=== PATIENT | female | born 1985 | race Caucasian/White ===

== ENCOUNTER 2019-10-17 06:34 | Emergency (ER) | payer MEDICARE, MEDICAID, SELFPAY ==
[2019-10-17 06:38] VITALS: BP 125/85; PULSE 86; RESP 22; TEMP 36.4; O2SAT 98; BMI 38.0
--- NOTE | 2019-10-17 06:53 | W.ED.ABDPA2 ---
HPI - Abdominal Pain General: Chief Complaint: Abdominal Pain Stated Complaint: RIGHT SIDE PAIN Time Seen by Provider: 10/17/19 06:40 History of Present Illness: HPI narrative: 33-year-old female presents with complaint of right-sided flank pain radiating down into the right groin. She denies any vaginal bleeding. She has a history of nephrolithiasis states this feels the same. She did have a bowel movement earlier this morning she also vomited x1 there is no hematochezia melena hematemesis or coffee-ground emesis she denies any fever she has noted dysuria and urgency associated with this as well. No hematuria. MD elicited complaint: flank pain Pertinent past history: kidney stones Location: R flank Severity: severe Quality: sharp Radiation: other (R groin) Migration to: no migration Exacerbating factors: nothing Relieving factors: nothing Associated Symptoms: Reports dysuria; Denies bloating, chills, coffee ground emesis, constipation, diarrhea, fever(s), hematochezia, hematemesis, melena, nausea and vomiting Review of Systems Const: Denies: fever, chills, body aches, change in appetite, fatigue or malaise ENMT: Denies: throat pain, ear pain, nasal discharge or nasal congestion Card: Denies: chest pain, edema, shortness of breath on exertion or shortness of breath when lying down Resp: Denies: shortness of breath, productive cough or non-productive cough GI: Denies: abdominal pain, nausea, vomiting, vomiting blood, coffee grounds in vomit, diarrhea, constipation, bloating, blood in stool or black tarry stool : Reports: flank pain, difficulty urinating and painful urination; Denies: urinary frequency or urinary urgency Skin/Breast: Denies: rash or itching PFS ED PFSH: Social History Smoking and tobacco status: current every day smoker cigarettes Packs smoked per day: 1 Physical Exam Const: COMMON NORMALS: no apparent distress GENERAL APPEARANCE: cooperative and comfortable ORIENTATION/CONSCIOUSNESS: Yes awake, Yes oriented to person, Yes oriented to place and Yes oriented to time HENMT: COMMON NORMALS: normocephalic, head/scalp atraumatic, hearing grossly normal bilaterally, external ears normal, EAC's normal, TM's normal bilaterally, nasal mucous membranes and turbinates normal, moist oral mucous membranes and oropharynx normal HEAD & SCALP: normocephalic and atraumatic NOSE: nasal mucous membranes and turbinates normal EXTERNAL EAR: Yes external ears normal EXTERNAL AUDITORY CANAL: EAC's normal TYMPANIC MEMBRANE: TM's normal bilaterally Eye: COMMON NORMALS: PERRL, EOMs intact bilaterally, conjunctivae normal and no scleral icterus CONJUNCTIVA: Yes conjunctivae normal PUPIL: Yes PERRL Neck/C-Spine: COMMON NORMALS: full ROM, no lymphadenopathy, supple and no JVD Lymph: LYMPHATIC: no lymphadenopathy noted and no lymphedema noted Resp: COMMON NORMALS: normal respiratory effort, no retractions, no use of accessory muscles and clear to auscultation bilaterally AUSCULTATION: clear to auscultation bilaterally Cardio: COMMON NORMALS: no JVD, regular rate, regular rhythm and no murmurs RATE: regular rate RHYTHM: regular rhythm GI: COMMON NORMALS: soft to palpation and no hepatosplenomegaly AUSCULTATION: Yes normoactive bowel sounds PALPATION: Yes soft, No tender, No guarding and Yes no hepatosplenomegaly Extremity: COMMON NORMALS: normal to inspection, normal capillary refill, no clubbing, cyanosis or edema, no calf tenderness and no pedal edema Neuro: SENSORIUM/ORIENTATION: Yes oriented to person, Yes oriented to place and Yes oriented to time Skin: COMMON NORMALS: no rashes or lesions noted GENERAL SKIN EXAM: no rashes or lesions noted Course Vital Signs: Vital signs: Vital Signs Temperature 97.6 F 10/17/19 06:38 Pulse Rate 86 10/17/19 06:38 Respiratory Rate 22 H 10/17/19 06:38 Blood Pressure 125/85 10/17/19 06:38 Pulse Oximetry 98 10/17/19 06:38 MDM - Abdominal Pain MDM Narrative: Medical decision making narrative: While patient was waiting for CT she passed the stone agreeable to collect it. It was drained and submitted for pathology. She is completely pain-free now and she does not show signs of infection we will go ahead and discharge home KUB did not show any signs of further nephrolithiasis. There is a few pelvic phleboliths. We will analyze a stone set up follow-up with Dr. Valentin Lab Data: Labs: Lab Results 04/22/20 Range/Units 06:50 Urine Color Yellow (Yellow) Urine Appearance Clear (CLEAR) Urine pH 5.0 (5-7) Ur Specific Gravit y 1.025 (1.005-1.030) Urine Protein 1+ H (Negative) Urine Glucose (UA) Norm (Normal) Urine Ketones 1+ H (Negative) Urine Blood Neg (Negative) Urine Nitrate Negative (Negative) Urine Bilirubin 1+ H (NEGATIVE) Urine Urobilinogen 4 H (Negative) mg/dL Ur Leukocyte May ase Trace H (Negative) Urine RBC None (0-2) /hpf Urine WBC 0-4 H (0-5) /hpf Ur Squamous Epith Cells 15-25 H (0-5) Urine Bacteria 1+ H (NONE) Discharge Plan Discharge Patient Disposition: Home, Self-Care Clinical Impression: Calculus of kidney Condition: Stable Prescriptions: No Action ibuprofen 200 mg capsule 800 mg PO TID PRNRF: 0 nicotine 21 mg/24 hr patch 24 hour 1 patch TRANSDERMA DAILY RF: 0 bupropion HCl [Wellbutrin SR] 150 mg tablet sustained-release 12 hr 150 mg PO QAM Qty: 30 RF: 4 buspirone 15 mg tablet 15 mg PO TID Qty: 90 RF: 4 melatonin 5 mg capsule 5 mg PO .QHS PRN (Reason: sleep) Qty: 30 RF: 4 venlafaxine [Effexor XR] 150 mg capsule,extended release 24hr 150 mg PO QAM Qty: 30 RF: 4 Discharge Orders: Discharge Order (Routine); Ordered 10/17/19 Ordered By: Kevin Grant Referrals: Timothy Valentin MD [Physician] - (Past renal stone in the emergency room stone was sent for analysis) Discharge Diet: Usual diet Discharge Activity: Resume usual activity Activity Restrictions/Additional Instructions: Return if you have recurrent problems Discharge Date/Time: 10/17/19 08:24 Coding Level of Care Code ED [employer] Station Manager for Michelle German
--- NOTE | 2019-10-17 07:15 | PC.NURSE ---
Pt got up to bathroom to void and states she feels she passed the stone and her pain is completely gone. Pt voided to specimen cup and urine strained for stone. Dr Grant notified.
[2019-10-17 07:16] LABS: Add Urine Microscopic? YES; Bilirubin Urine 1+ (NEGATIVE); Blood Urine Neg (Negative); Glucose Urine UA Norm (Normal); Ketones Urine 1+ (Negative); Leukocyte Esterase Urine Trace (Negative); Nitrate Urine Negative (Negative); Protein Urine 1+ (Negative); Specific Gravity, Urine 1.025 (1.005-1.030); Urine Appearance Clear (CLEAR); Urine Color Yellow (Yellow); Urobilinogen Urine 4 mg/dL (Negative)
[2019-10-17 07:24] LABS: Add Urine Culture? No; Bacteria Urine 1+; Squamous Epithelial Cell Urine 15-25 (0-5); WBC Urine 0-4 /hpf (0-5)
--- NOTE | 2019-10-17 07:43 | XR_ITS ---
WS: [id number] ABDOMEN KUB CLINICAL INFORMATION: Renal/ureteral calculi. COMPARISON: December 18, 2016 FINDINGS: Mild lumbar curve convex right. Pelvic phleboliths. Cholecystectomy clips. No visualized renal parenc hymal or ureteral calculi. XR/XR KUB [id number] Impression: No visualized renal parenchymal or ureteral calculi.
--- NOTE | 2019-10-18 15:23 | DCPLANNER ---
commercial property manager had message to schedule a follow up appointment for patient with Dr. Valentin. commercial property manager called the office of Dr. Valentin. commercial property manager called the office of Dr. Valentin, spoke with Luz Marina, gave clinic patients information. commercial property manager was told that patients information would be printed and given to Archana for review. Clinic will call patient with appointment information. commercial property manager will call for appointment information.
--- NOTE | 2019-10-19 10:59 | DCPLANNER ---
Patient has a follow up appointment scheduled for , October 25, 2019 at 1:[address] Valentin. Clinic will call patient with appointment information.
--- NOTE | 2019-12-13 14:43 | DCPLANNER ---
Patient did attend appointment scheduled for 10.25.[address] Valentin.
== END 2019-10-17 08:24 | disposition home or self-care (01) ==
PROVIDERS: Emergency Provider Family Medicine; PCP Family Medicine
DX: N20.0 Calculus of kidney (principal); F17.210 Nicotine dependence, cigarettes, uncomplicated; Z87.442 Personal history of urinary calculi
CPT/HCPCS: 12345; 74018; 81001; 82365; 99282

== ENCOUNTER 2019-10-25 13:55 | Outpatient (CLI) | payer MEDICARE, MEDICAID, SELFPAY ==
--- NOTE | 2019-10-25 14:00 | XR_ITS ---
WS: [id number] ABDOMEN 1 VIEW(S) HISTORY: kidney calculus COMPARISON: 10/17/2019 Mild RIGHT convex curvature lumbar spine. Prior cholecystectomy. No suspicious calcifications or masses. No bone abnormality. XR/XR KUB [id number] IMPRESSION: No renal or ureteral calculi identified.
== END 2019-10-25 13:56 | disposition home or self-care (01) ==
LOC: RAD 14:01
PROVIDERS: PCP Family Medicine; Visit Provider Nurse Practitioner Family
DX: N20.0 Calculus of kidney (principal)
CPT/HCPCS: 74018; 81001

== ENCOUNTER 2019-11-25 17:04 | Emergency (ER) | payer MEDICARE, MEDICAID, SELFPAY ==
[2019-11-25 17:07] VITALS: BP 143/91; PULSE 92; RESP 18; O2SAT 95; BMI 38.9
--- NOTE | 2019-11-25 17:16 | ED_ITS ---
Documented by User: Yayo Gunderson DO 11/25/19 17:18 HPI - Chest Pain General: Chief Complaint: Chest Pain Stated Complaint: CHEST PAIN/SOB Time Seen by Provider: 11/25/19 17:11 History of Present Illness: HPI narrative: Patient had chest pain that started in the center of her chest and radiated up to her left shoulder yesterday. There were no associated symptoms. Pain lasted for approximately 30 minutes. Pain recurred this morning while the patient was laying in bed. MD complaint: chest pain Associated symptoms: Reports no associated symptoms Treatment prior to arrival: none Review of Systems General: Reports: 10 or more systems reviewed and unremarkable except in HPI and below Card: Reports: chest pain [facility] ED PFSH: Medical History Urolithiasis Surgical History Hx of cholecystectomy Hx of hysterectomy Family History Other CAD (coronary artery disease) Diabetes Social History Smoking and tobacco status: current every day smoker cigarettes Packs smoked per day: 1 Alcohol intake: unknown Adopted: No Caregiver/support person: No Lives independently: Yes Marital status: Single Current occupational status: disabled History of recent travel: No Current gender identity: Female Physical Exam Const: COMMON NORMALS: no acute distress, average body habitus, patient oriented x3, no limitations, alert and well nourished HENMT: COMMON NORMALS: normocephalic, atraumatic, hearing grossly normal bilaterally, external ears normal, EAC's normal, TM's normal bilaterally, Normal external nose present, Normal nasal mucous membranes and turbinates present, moist oral mucous membranes, oropharynx normal, dentition normal and gingiva normal HEAD & SCALP: normocephalic and atraumatic NOSE: Normal external nose present and Normal nasal mucous membranes and turbinates present EXTERNAL EAR: Yes external ears normal EXTERNAL AUDITORY CANAL: EAC's normal TYMPANIC MEMBRANE: TM's normal bilaterally Eye: COMMON NORMALS: Equal, round and reactive pupils present, EOMs intact bilaterally, conjunctivae normal, no scleral icterus, no papilledema, normal visual muro by confrontation and fundi normal bilaterally CONJUNCTIVA: Yes conjunctivae normal PUPIL: Yes Equal, round and reactive pupils present DIRECT OPHTHALMOSCOPY: Yes no papilledema and Yes fundi normal bilaterally Neck/C-Spine: COMMON NORMALS: full ROM, no lymphadenopathy, supple, no meningeal signs, no JVD, Thyroid normal and No carotid bruits THYROID: Thyroid normal Chest: COMMONS NORMALS: normal inspection of the chest Resp: COMMON NORMALS: normal respiratory effort, No retractions, No use of accessory muscles, clear to auscultation bilaterally and percussion normal AUSCULTATION: clear to auscultation bilaterally PERCUSSION: percussion normal Cardio: COMMON NORMALS: no JVD, regular rate, regular rhythm, S1 normal heart sound present, S2 normal heart sound present, No gallops present (Cardio), No clicks present (Cardio), No murmurs present (Cardio), No rub (Cardio) and Peripheral pulses 2+ throughout RATE: regular rate RHYTHM: regular rhythm HEART SOUNDS: S1 normal heart sound present and S2 normal heart sound present PERIPHERAL PULSES: Peripheral pulses 2+ throughout GI: COMMON NORMALS: Normal to inspection, nondistended, normoactive bowel sounds present, Soft to palpation, non-tender, No hepatosplenomegaly present, no masses and no bruits PALPATION: Yes Soft to palpation and Yes No hepatosplenomegaly present : COMMON NORMALS: Yes normal external appearance Back/Pelvis: COMMON NORMALS: thoracic and lumbar spine normal to inspection, no thoracic nor lumbar tenderness, thoraco-lumbar ROM normal and straight leg raise negative bilaterally Extremity: COMMON NORMALS: normal to inspection, full ROM, capillary refill normal, no joint enlargement, no clubbing, cyanosis or edema, no calf tenderness and no pedal edema Neuro: COMMON NORMALS: patient oriented x3 SENSORIUM/ORIENTATION: Yes alert and Yes somnolent MENINGEAL SIGNS: Yes no meningeal signs Skin: COMMON NORMALS: no rashes or lesions noted, no wounds, no jaundice and no mottling GENERAL SKIN EXAM: no rashes or lesions noted Course Vital Signs: Vital signs: Vital Signs Pulse Rate 92 11/25/19 17:07 Respiratory Rate 18 11/25/19 17:07 Blood Pressure 143/91 11/25/19 17:07 Pulse Oximetry 95 11/25/19 17:07 MDM - Chest Pain Lab Data: Labs: Lab Results 11/25/19 11/25/19 11/25/19 Range/Units 17:30 17:30 17:30 WBC 11.5 H (4.0-10.0) 10^3/ uL RBC 5.13 (4.1-5.3) 10^6/u L Hgb 15.1 (11.5-15.3) g/dL Hct 46.2 (37.0-47.0) % MCV 90.1 (81-99) fL MCH 29.4 (28.0-34.0) pg MCHC 32.7 (30.0-36.0) g/dL RDW 13.6 (12.1-15.1) % Plt Count 264 (130-400) 10^3/c mm MPV 11.0 H (7.4-10.4) fL Neut % (Auto) 61.7 % Lymph % (Auto) 29.0 % Bertie % (Auto) 6.3 % Eos % (Auto) 2.1 % Baso % (Auto) 0.6 % Neut # (Auto) 7.1 (1.8-7.7) 10^3/u L Lymph # (Auto) 3.3 (0.8-4.8) 10^3/u L Bertie # (Auto) 0.7 (0.2-0.9) 10^3/u L Eos # (Auto) 0.2 (0.0-0.8) 10^3/u L Baso # (Auto) 0.1 (0.0-0.1) 10^3/u L Nucleated RBC % (a uto) 0 % Nucleated RBCs # 0.0 /100WBC Sodium 140 (136-145) mmol/L Potassium 3.9 (3.5-5.1) mmol/L Chloride 102 (98-107) mmol/L Carbon Dioxide 25 (22-29) mmol/L Anion Gap 16.9 (5-19) BUN 12 (6-20) mg/dL Creatinine 0.7 (0.5-0.9) mg/dL GFR Calculation 95.8 (90-130) mL/min Glucose 105 (65-115) mg/dL Calculated Osmolal ity 286 (285-295) mOsm/k g Calcium 9.8 (8.5-10.5) mg/dL Total Bilirubin 0.3 (0.15-1.2) mg/dL AST 16 (0-32) U/L ALT 19 (0-33) U/L Alkaline Phosphata se 110 H (35-105) IU/L Troponin T Baselin e 6 (0-10) ng/mL NT-Pro-B Natriuret Pep 6 (0-125) pg/mL Total Protein 7.1 (6.6-8.7) g/dL Albumin 3.9 (3.5-5.2) g/dL Globulin 3.2 (1.3-4.6) g/dL Lipase 20 (13-60) U/L Discharge Plan Discharge Patient Disposition: Home, Self-Care Clinical Impression: Chest pain Qualifiers: Chest pain type: unspecified Qualified Code(s): R07.9 - Chest pain, unspecified Condition: Stable Prescriptions: No Action ibuprofen 200 mg capsule 800 mg PO TID PRN (Reason: Pain) RF: 0 Sleep Aid (diphenhydramine) 25 mg Tablet 25 mg PO PRN PRN (Reason: Sleep) RF: 0 Discharge Orders: Discharge Order (Routine); Ordered 11/25/19 Ordered By: Jose Maria Sears Referrals: [facility] [Other] Adan Hines MD [Primary Care Provider] - 4-7 days Discharge Diet: Advance as tolerated Discharge Activity: Increase activity as tolerated Patient Instructions: Chest Pain (ED) Activity Restrictions/Additional Instructions: Return to the emergency department for repeated episodes of chest pain, shortness of breath, fever or cough, or other concerning symptoms. Coding Level of Care Code ED Information Services Consultant for Chg Fwd Exam Comprehensive Documented by User: Jose Maria Sears, 11/25/19 18:41 HPI - Chest Pain General: Chief Complaint: Chest Pain Stated Complaint: CHEST PAIN/SOB Time Seen by Provider: 11/25/19 17:11 PFS ED PFSH: Medical History Urolithiasis Surgical History Hx of cholecystectomy Hx of hysterectomy Family History Other CAD (coronary artery disease) Diabetes Social History Smoking and tobacco status: current every day smoker cigarettes Packs smoked per day: 1 Alcohol intake: unknown Adopted: No Caregiver/support person: No Lives independently: Yes Marital status: Single Current occupational status: disabled History of recent travel: No Current gender identity: Female Course Vital Signs: Vital signs: Vital Signs Pulse Rate 92 11/25/19 17:07 Respiratory Rate 18 11/25/19 17:07 Blood Pressure 143/91 11/25/19 17:07 Pulse Oximetry 95 11/25/19 17:07 MDM - Chest Pain MDM Narrative: Medical decision making narrative: 33-year-old female checked out to me by Dr. Morales at shift change. She presented with 2 episodes of chest pain, one yesterday and one this morning. She is pain-free currently. Her chest x-ray is normal. Her EKG is normal sinus rhythm without any ST change. Her first troponin is completely negative. Her laboratory is otherwise normal. She will be allowed discharge. Lab Data: Labs: Lab Results 11/25/19 11/25/19 11/25/19 Range/Units 17:30 17:30 17:30 WBC 11.5 H (4.0-10.0) 10^3/ uL RBC 5.13 (4.1-5.3) 10^6/u L Hgb 15.1 (11.5-15.3) g/dL Hct 46.2 (37.0-47.0) % MCV 90.1 (81-99) fL MCH 29.4 (28.0-34.0) pg MCHC 32.7 (30.0-36.0) g/dL RDW 13.6 (12.1-15.1) % Plt Count 264 (130-400) 10^3/c mm MPV 11.0 H (7.4-10.4) fL Neut % (Auto) 61.7 % Lymph % (Auto) 29.0 % Bertie % (Auto) 6.3 % Eos % (Auto) 2.1 % Baso % (Auto) 0.6 % Neut # (Auto) 7.1 (1.8-7.7) 10^3/u L Lymph # (Auto) 3.3 (0.8-4.8) 10^3/u L Bertie # (Auto) 0.7 (0.2-0.9) 10^3/u L Eos # (Auto) 0.2 (0.0-0.8) 10^3/u L Baso # (Auto) 0.1 (0.0-0.1) 10^3/u L Nucleated RBC % (a uto) 0 % Nucleated RBCs # 0.0 /100WBC Sodium 140 (136-145) mmol/L Potassium 3.9 (3.5-5.1) mmol/L Chloride 102 (98-107) mmol/L Carbon Dioxide 25 (22-29) mmol/L Anion Gap 16.9 (5-19) BUN 12 (6-20) mg/dL Creatinine 0.7 (0.5-0.9) mg/dL GFR Calculation 95.8 (90-130) mL/min Glucose 105 (65-115) mg/dL Calculated Osmolal ity 286 (285-295) mOsm/k g Calcium 9.8 (8.5-10.5) mg/dL Total Bilirubin 0.3 (0.15-1.2) mg/dL AST 16 (0-32) U/L ALT 19 (0-33) U/L Alkaline Phosphata se 110 H (35-105) IU/L Troponin T Baselin e 6 (0-10) ng/mL NT-Pro-B Natriuret Pep 6 (0-125) pg/mL Total Protein 7.1 (6.6-8.7) g/dL Albumin 3.9 (3.5-5.2) g/dL Globulin 3.2 (1.3-4.6) g/dL Lipase 20 (13-60) U/L Discharge Plan Discharge Patient Disposition: Home, Self-Care Clinical Impression: Chest pain Qualifiers: Chest pain type: unspecified Qualified Code(s): R07.9 - Chest pain, unspecified Condition: Stable Prescriptions: No Action ibuprofen 200 mg capsule 800 mg PO TID PRN (Reason: Pain) RF: 0 Sleep Aid (diphenhydramine) 25 mg Tablet 25 mg PO PRN PRN (Reason: Sleep) RF: 0 Discharge Orders: Discharge Order (Routine); Ordered 11/25/19 Ordered By: Jose Maria Sears Referrals: [facility] [Other] Adan Hines MD [Primary Care Provider] - 4-7 days Discharge Diet: Advance as tolerated Discharge Activity: Increase activity as tolerated Patient Instructions: Chest Pain (ED) Activity Restrictions/Additional Instructions: Return to the emergency department for repeated episodes of chest pain, shortness of breath, fever or cough, or other concerning symptoms. Coding Level of Care Code ED Information Services Consultant for Michelle Fwd Exam Comprehensive
--- NOTE | 2019-11-25 17:18 | XR_ITS ---
WS: [id number] XR chest 1V portable [id number] REASON FOR EXAM: cp FINDINGS: Comparisons were made to November 27, 2018. The heart mediastinum are similar. The lung muro are well aerated. No pneumonia, pleural effusion, pulmonary edema, or pneumothorax. No osseous abnormalities. The hilum and apices normal. XR/XR chest 1V portable [id number] IMPRESSION: Negative chest for acute pathology.
[2019-11-25 17:46] LABS: Basophils # 0.1 10^3/uL (0.0-0.1); Basophils % 0.6 %; Eosinophils # 0.2 10^3/uL (0.0-0.8); Eosinophils % 2.1 %; Hematocrit 46.2 % (37.0-47.0); Hemoglobin 15.1 g/dL (11.5-15.3); Lymphocytes # 3.3 10^3/uL (0.8-4.8); Mean Corpuscular HGB Conc 32.7 g/dL (30.0-36.0); Mean Corpuscular Hemoglobin 29.4 pg (28.0-34.0); Mean Corpuscular Volume 90.1 fL (81-99); Monocytes # 0.7 10^3/uL (0.2-0.9); Monocytes % 6.3 %; Neutrophils # 7.1 10^3/uL (1.8-7.7); Neutrophils % 61.7 %; Nucleated Red Blood Cells % 0 %; Platelet Count 264 10^3/cmm (130-400); Red Blood Count 5.13 10^6/uL (4.1-5.3); Red Cell Distribution Width 13.6 % (12.1-15.1); White Blood Count 11.5 10^3/uL (4.0-10.0)
[2019-11-25 18:06] LABS: Troponin(5th) Baseline 6 ng/mL (0-10)
[2019-11-25 18:16] LABS: Alanine Aminotransferase 19 U/L (0-33); Albumin Level 3.9 g/dL (3.5-5.2); Alkaline Phosphatase 110 IU/L (35-105); Anion Gap 16.9 (5-19); Aspartate Amino Transferase 16 U/L (0-32); Blood Urea Nitrogen 12 mg/dL (6-20); Calcium 9.8 mg/dL (8.5-10.5); Carbon Dioxide 25 mmol/L (22-29); Chloride 102 mmol/L (98-107); Globulin 3.2 g/dL (1.3-4.6); Glomerular Filtration Rate 95.8 mL/min (90-130); Glucose 105 mg/dL (65-115); Lipase 20 U/L (13-60); NT Pro B Type Natriuretic Pept 6 pg/mL (0-125); Osmolality Calculated 286 mOsm/kg (285-295); Potassium 3.9 mmol/L (3.5-5.1); Sodium 140 mmol/L (136-145); Total Bilirubin 0.3 mg/dL (0.15-1.2); Total Protein 7.1 g/dL (6.6-8.7)
--- NOTE | 2019-11-25 19:18 | ECG_ITS ---
Measurements Intervals [place] Rate: 85 P: 54 OR: 156 QRS: 82 QRSD: 102 T: 42 QT: 374 QTc: 446 SINUS RHYTHM Compared to ECG 11/27/2018 08:56:17 Myocardial infarct finding no longer present Electronically Signed On 11-26-2019 17:07:07 CDT by Theo Sierra M.D. [email or web address]
[2019-11-25 19:33] VITALS: BP 114/94; PULSE 93; RESP 15; O2SAT 97
--- NOTE | 2019-11-25 23:18 | ECG_ITS ---
Measurements Intervals [place] Rate: 97 P: 33 VA: 148 QRS: 82 QRSD: 102 T: 22 QT: 357 QTc: 455 SINUS RHYTHM Compared to ECG 11/27/2018 08:56:17 Myocardial infarct finding no longer present Electronically Signed On 11-26-2019 17:06:50 CDT by Theo Sierra M.D. [email or web address]
== END 2019-11-25 19:34 | disposition home or self-care (01) ==
PROVIDERS: Family Medicine; Emergency Provider Emergency Medicine; PCP Family Medicine
DX: R07.9 Chest pain, unspecified (principal); F17.210 Nicotine dependence, cigarettes, uncomplicated
CPT/HCPCS: 12345; 36415; 71045; 80053; 83690; 83880; 84484; 85025; 93005; 99282; 99284

== ENCOUNTER → 2019-11-26 07:39 | Outpatient (BNVA) | payer MEDICARE, MEDICAID, SELFPAY | PROVIDERS: PCP Family Medicine; Visit Provider Nurse Practitioner Psychiatric/Mental Health | DX: F41.0 Panic disorder [episodic paroxysmal anxiety] (principal); F33.1 Major depressive disorder, recurrent, moderate; F43.12 Post-traumatic stress disorder, chronic; F17.210 Nicotine dependence, cigarettes, uncomplicated | CPT/HCPCS: 99214 ==

== ENCOUNTER → 2020-01-09 07:44 | Outpatient (BNVA) | payer MEDICARE, MEDICAID, SELFPAY | PROVIDERS: PCP Family Medicine; Visit Provider Nurse Practitioner Psychiatric/Mental Health | DX: F41.0 Panic disorder [episodic paroxysmal anxiety] (principal); F33.1 Major depressive disorder, recurrent, moderate; F43.12 Post-traumatic stress disorder, chronic; F17.210 Nicotine dependence, cigarettes, uncomplicated | CPT/HCPCS: 99214 ==

== ENCOUNTER → 2020-02-20 08:19 | Outpatient (BNVA) | payer MEDICARE, MEDICAID, SELFPAY | PROVIDERS: PCP Family Medicine; Visit Provider Nurse Practitioner Psychiatric/Mental Health | DX: F41.0 Panic disorder [episodic paroxysmal anxiety] (principal); F33.1 Major depressive disorder, recurrent, moderate; F43.12 Post-traumatic stress disorder, chronic; F17.210 Nicotine dependence, cigarettes, uncomplicated | CPT/HCPCS: 99214 ==

== ENCOUNTER 2020-03-18 07:08 | Emergency (ER) | payer MEDICAID, SELFPAY ==
[2020-03-18 07:13] VITALS: BP 123/85; PULSE 97; RESP 14; TEMP 36.9; O2SAT 96; BMI 41.4
--- NOTE | 2020-03-18 07:22 | W.ED.GENADLT ---
HPI - General Adult General: Chief complaint: General Medical Stated complaint: COUGH, THROAT PAIN Time Seen by Provider: 03/18/20 07:17 History of Present Illness: HPI narrative: Patient comes in complain about sore throat and cough right ear is been itching since yesterday is a smoker. Denies fever chills denies production with cough. Denies any nausea vomiting diarrhea loss of taste or smell or muscle aches. MD complaint: Sore throat and cough Onset (ago): day(s) Severity: mild Associated symptoms: Deny chest pain, dyspnea, headache(s), nausea, rash or vomiting Review of Systems Const: Denies: fever(s), chills or body aches Eyes: Denies: change in vision or blurry vision ENMT: Reports: throat pain; Denies: nasal congestion Card: Denies: chest pain or dyspnea on exertion Resp: Reports: non-productive cough; Denies: dyspnea or productive cough GI: Denies: abdominal pain, nausea or vomiting Musc: Denies: extremity pain Skin/Breast: Denies: rash Neuro: Denies: headache(s) Psych: Denies: anxiety or depression Gordy/Lymph: Denies: easy bruising PFSH ED PFSH: Medical History (Updated 03/18/20 @ 07:25 by PARAMJIT Young) Chronic post-traumatic stress disorder Major depressive disorder, recurrent episode, moderate with anxious distress Nicotine dependence, cigarettes, uncomplicated Panic disorder without agoraphobia Urolithiasis Surgical History Hx of cholecystectomy Hx of hysterectomy Family History Other CAD (coronary artery disease) Diabetes Social History Smoking and tobacco status: current every day smoker cigarettes Packs smoked per day: 1 Alcohol intake: unknown Adopted: No Caregiver/support person: No Lives independently: Yes Marital status: Single Current occupational status: disabled History of recent travel: No Current gender identity: Female Physical Exam Const: COMMON NORMALS: no acute distress, average body habitus and patient oriented x3 HENMT: COMMON NORMALS: normocephalic HEAD & SCALP: normal to inspection and normocephalic FACE & SINUS: normal facial exam THROAT: posterior oropharynx abnormal erythema Eye: COMMON NORMALS: conjunctivae normal GENERAL EYE: appearance normal, both eyes and all related structures CONJUNCTIVA: Yes conjunctivae normal Neck/C-Spine: COMMON NORMALS: no JVD Chest: COMMONS NORMALS: normal inspection of the chest Resp: COMMON NORMALS: normal respiratory effort AUSCULTATION: other (Raspy in the bases) Cardio: COMMON NORMALS: no JVD, regular rate and regular rhythm RATE: regular rate RHYTHM: regular rhythm GI: COMMON NORMALS: Normal to inspection, nondistended, normoactive bowel sounds present Extremity: COMMON NORMALS: normal to inspection and full ROM Neuro: COMMON NORMALS: patient oriented x3 Course Vital Signs: Vital signs: Vital Signs Temperature 98.4 F 03/18/20 07:13 Pulse Rate 96 03/18/20 07:30 Respiratory Rate 20 H 03/18/20 07:30 Blood Pressure 123/85 03/18/20 07:13 Pulse Oximetry 97 03/18/20 07:30 Discharge Plan Discharge Patient Disposition: Home Clinical Impression: Pain in throat Condition: Stable Prescriptions: New Zithromax Z-[place] 250 mg tablet See Rx Instructions .ROUTE .COMPLEX Qty: 6 RF: 0 Tessalon Perles 100 mg capsule 100 mg PO TID PRN (Reason: cough) Qty: 14 RF: 0 No Action ibuprofen 200 mg capsule 800 mg PO TID PRN (Reason: Pain) RF: 0 fluoxetine [Prozac] 20 mg capsule 20 mg PO .morning Qty: 30 RF: 3 hydroxyzine pamoate [Vistaril] 50 mg capsule 50 mg PO BID PRN (Reason: anxiety) Qty: 60 RF: 3 Discharge Orders: Discharge Order (Routine); Ordered 03/18/20 Ordered By: Steve Stiles Referrals: [facility] [Other] Adan Hines MD [Primary Care Provider] - Discharge Diet: Usual diet Discharge Activity: Increase activity as tolerated Patient Instructions: Sore Throat - Adult Activity Restrictions/Additional Instructions: Follow-up with medical provider as directed. Take medications as prescribed. Return to the ER or your medical provider if condition worsens. Please read and understand discharge instructions. If any questions ask please. Discharge Date/Time: 03/18/20 07:31 Coding Level of Care Code ED Community Service Coordinator for Chg Fwd Exam Comprehensive
[2020-03-18 07:30] VITALS: PULSE 96; RESP 20; O2SAT 97
== END 2020-03-18 07:31 | disposition home or self-care (01) ==
PROVIDERS: Emergency Provider Nurse Practitioner Family; PCP Family Medicine
DX: R07.0 Pain in throat (principal); F17.210 Nicotine dependence, cigarettes, uncomplicated
CPT/HCPCS: 12345; 99281; 99282

== ENCOUNTER → 2020-04-09 07:56 | Outpatient (BNVA) | payer MEDICARE, MEDICAID, SELFPAY | PROVIDERS: PCP Family Medicine; Visit Provider Nurse Practitioner Psychiatric/Mental Health | DX: F41.0 Panic disorder [episodic paroxysmal anxiety] (principal); F33.1 Major depressive disorder, recurrent, moderate; F43.12 Post-traumatic stress disorder, chronic; F17.210 Nicotine dependence, cigarettes, uncomplicated | CPT/HCPCS: 99214 ==

== ENCOUNTER → 2020-05-07 07:55 | Outpatient (BNVA) | payer MEDICARE, MEDICAID, SELFPAY | PROVIDERS: PCP Family Medicine; Visit Provider Nurse Practitioner Psychiatric/Mental Health | DX: F33.1 Major depressive disorder, recurrent, moderate (principal); F41.0 Panic disorder [episodic paroxysmal anxiety]; F43.12 Post-traumatic stress disorder, chronic; F17.210 Nicotine dependence, cigarettes, uncomplicated | CPT/HCPCS: 99214 ==

== ENCOUNTER → 2020-06-09 07:36 | Outpatient (BNVA) | payer MEDICARE, MEDICAID, SELFPAY | PROVIDERS: PCP Family Medicine; Visit Provider Nurse Practitioner Psychiatric/Mental Health | DX: F33.1 Major depressive disorder, recurrent, moderate (principal); F41.0 Panic disorder [episodic paroxysmal anxiety]; F43.12 Post-traumatic stress disorder, chronic; F17.210 Nicotine dependence, cigarettes, uncomplicated | CPT/HCPCS: 99213 ==

== ENCOUNTER → 2020-09-01 07:29 | Outpatient (BNVA) | payer MEDICARE, MEDICAID, SELFPAY | PROVIDERS: PCP Family Medicine; Visit Provider Nurse Practitioner Psychiatric/Mental Health | DX: F33.1 Major depressive disorder, recurrent, moderate (principal); F41.0 Panic disorder [episodic paroxysmal anxiety]; F43.12 Post-traumatic stress disorder, chronic; F17.210 Nicotine dependence, cigarettes, uncomplicated | CPT/HCPCS: 99214 ==

== ENCOUNTER 2020-09-24 10:17 | Outpatient (CLI) | payer MEDICARE, MEDICAID, SELFPAY ==
--- NOTE | 2020-09-24 09:45 | XR_ITS ---
WS: [id number] KUB, 09/24/2020 Clinical Data: UROLITHIASIS Comparison: KUB, 10/25/2019. Findings: No abnormal intraabdominal masses or calcifications are seen. There is no dilatated small bowel or ev idence of obstruction. There is a large amount of fecal material in the ascending and transverse colons. There are phlebolit hs in the true pelvis. XR/XR KUB [id number] Impression: Negative KUB.
== END 2020-09-24 10:18 | disposition home or self-care (01) ==
LOC: RAD 10:22
PROVIDERS: PCP Nurse Practitioner; Visit Provider Urology
DX: N20.9 Urinary calculus, unspecified (principal)
CPT/HCPCS: 74018; 81003

== ENCOUNTER → 2020-10-07 07:35 | Outpatient (BNVA) | payer MEDICARE, MEDICAID, SELFPAY | PROVIDERS: PCP Nurse Practitioner; Visit Provider Nurse Practitioner Psychiatric/Mental Health | DX: F33.1 Major depressive disorder, recurrent, moderate (principal); F41.0 Panic disorder [episodic paroxysmal anxiety]; F43.12 Post-traumatic stress disorder, chronic; F17.210 Nicotine dependence, cigarettes, uncomplicated | CPT/HCPCS: 99214 ==

== ENCOUNTER → 2020-10-21 07:50 | Outpatient (BNVA) | payer MEDICARE, MEDICAID, SELFPAY | PROVIDERS: PCP Nurse Practitioner; Visit Provider Specialist | DX: G56.03 Carpal tunnel syndrome, bilateral upper limbs (principal); F17.210 Nicotine dependence, cigarettes, uncomplicated | CPT/HCPCS: 95910 ==

== ENCOUNTER → 2020-10-24 09:44 | Outpatient (BNVA) | payer OTHER, SELFPAY | PROVIDERS: PCP Nurse Practitioner; Visit Provider Nurse Practitioner Psychiatric/Mental Health | DX: F43.12 Post-traumatic stress disorder, chronic (principal) | CPT/HCPCS: 80061; 83036 ==

== ENCOUNTER → 2020-11-19 11:32 | Outpatient (BNVA) | payer MEDICARE, MEDICAID, SELFPAY ==
[2020-10-29 13:39] VITALS: BP 115/75; BMI 42.7
== END ==
PROVIDERS: PCP Nurse Practitioner; Referring Provider Nurse Practitioner; Visit Provider Specialist
DX: G56.03 Carpal tunnel syndrome, bilateral upper limbs (principal); Z46.89 Encounter for fitting and adjustment of other specified devices
CPT/HCPCS: 73110; L3908

== ENCOUNTER 2020-11-19 14:51 | Outpatient (CLI) | payer MEDICARE, SELFPAY ==
[2020-10-29 13:39] VITALS: BP 115/75; BMI 42.7
== END 2020-11-19 14:52 | disposition home or self-care (01) ==
LOC: SPT 14:55
PROVIDERS: PCP Nurse Practitioner; Visit Provider Specialist
DX: Z46.89 Encounter for fitting and adjustment of other specified devices (principal); G56.03 Carpal tunnel syndrome, bilateral upper limbs
CPT/HCPCS: L3908

== ENCOUNTER → 2020-12-02 07:30 | Outpatient (BNVA) | payer MEDICARE, MEDICAID, SELFPAY ==
[2020-10-29 13:39] VITALS: BP 115/75; BMI 42.7
== END ==
PROVIDERS: PCP Nurse Practitioner; Visit Provider Nurse Practitioner Psychiatric/Mental Health
DX: F33.1 Major depressive disorder, recurrent, moderate (principal); F41.0 Panic disorder [episodic paroxysmal anxiety]; F43.12 Post-traumatic stress disorder, chronic; F17.210 Nicotine dependence, cigarettes, uncomplicated
CPT/HCPCS: 99214

== ENCOUNTER → 2020-12-08 09:59 | Outpatient (BNVA) | payer MEDICARE, SELFPAY ==
[2020-10-29 13:39] VITALS: BP 115/75; BMI 42.7
== END ==
PROVIDERS: PCP Nurse Practitioner; Visit Provider Specialist
DX: G56.03 Carpal tunnel syndrome, bilateral upper limbs (principal); Z20.822 Contact with and (suspected) exposure to COVID-19
CPT/HCPCS: 87635

== ENCOUNTER 2020-12-12 09:27 | Day surgery (SDC) | payer MEDICARE, MEDICAID, SELFPAY ==
[2020-10-29 13:39] VITALS: BP 115/75; BMI 42.7
[2020-12-11 15:10] VITALS: BMI 43.7
[2020-12-12 09:43] VITALS: BP 130/98; PULSE 102; RESP 18; TEMP 36.4; O2SAT 97
--- NOTE | 2020-12-12 09:47 | P.HPUD_ITS ---
Surgery/Procedure H&P Update DATE OF PROCEDURE: December 12, 2020 DATE H&P PERFORMED: 11/19/20 H&P UPDATE INFORMATION: I have reviewed H&P completed within last 30 days, I have examined patient prior to procedure, No changes to prior documentation and H&P is in [facility] [place] on date indicated PREOP DIAGNOSIS: RIght Carpal Tunnel Syndrome PLANNED PROCEDURE: Operation Date: 12/12/20 11:05 Proposed Procedures p Carpal Tunnel Release 15169 G56.00(Right) - Linh Carver MD Related Problem List Diagnoses (1) Carpal tunnel syndrome on right:
--- NOTE | 2020-12-12 10:02 | ANES.PREANE2 ---
Pre-Anesthetic Assessment Pre-Anesthetic Assessment: Height/Weight: Height 1.6 m Weight 112.037 kg Temp Pulse Resp BP Pulse Ox 97.5 F L 102 H 18 130/98 97 12/12/20 09:43 12/12/20 09:43 12/12/20 09:43 12/12/20 09:43 12/12/20 09:43 Preop Diagnosis: RIght Carpal Tunnel Syndrome Proposed Procedure: Operation Date: 12/12/20 11:05 Proposed Procedures p Carpal Tunnel Release 38093 G56.00(Right) - Linh Carver MD Was Beta Roxy taken within 24 hours: N/A Was Clonidine taken within 24 hours: N/A Last intake: Intake Last Liquid Date 12/11/20 Last Liquid Time 21:30 Last Solid Date 12/11/20 Last Solid Time 19:00 Social: Social History: Tobacco and No alcohol Exam: Pre-Anes Outpt Exam: alert, oriented x 3, clear to auscultation bilaterally and regular rate & rhythm Airway: Submandibular: WNL Cervical ROM: WNL MP: 2 Dentition: False Pulmonary: Pulmonary: COPD Metabolic: Metabolic: Morbid obesity Neuropsych: Neuropsych: Anxiety and Depression Anesthetic Plan: ASA status: 3 Anesthesia: MAC and Regional (specify below) ([place]) Risk of > 500 ml blood loss (7ml/kg in children): No PFSH Anesthesia PFSH: Medical History Chronic post-traumatic stress disorder Major depressive disorder, recurrent episode, moderate with anxious distress Nicotine dependence, cigarettes, uncomplicated Panic disorder without agoraphobia Urolithiasis Surgical History Hx of cholecystectomy Hx of hysterectomy Family History Other CAD (coronary artery disease) Diabetes Social History Smoking and tobacco status: current every day smoker cigarettes Packs smoked per day: 1 Alcohol intake: unknown Adopted: No Caregiver/support person: No Lives independently: Yes Marital status: Single Current occupational status: disabled History of recent travel: No Current gender identity: Female Data Anesthesia Cardiac Studies: No Data to Display
[2020-12-12] MEDS: acetaminophen 1,000 MG/100 ML PIGGYBACK 400 MG IV (10:20)
[2020-12-12] MEDS: CELEcoxib 200 mg Capsule 400 MG PO (10:33)
[2020-12-12] MEDS: sodium chloride 0.9% 1,000 ML 30 ML IV (10:34)
[2020-12-12 11:20] VITALS: BP 126/100; PULSE 101; RESP 12; TEMP 37; O2SAT 93
--- NOTE | 2020-12-12 11:24 | P.OP_ITS ---
Operative Report Date of procedure: December 12, 2020 Pre-op Diagnosis: Right carpal tunnel syndrome Post-op diagnosis: same Procedure Done: Right carpal tunnel release Implants: None Specimens removed/disposition: None Pathology: none sent Surgeon: Linh Carver Real Estate Teacher: None Anesthesia: MAC ([place] Block, ASA 3) Estimated blood loss (mL): 5 Tourniquet time (min): 31 Tourniquet time: At 250 mmHg IV fluids (mL): 400 Urine output (mL): 0 Urine output: No Tan Complications: None Findings: Severe compression of the median nerve within the carpal canal with hourglass deformity and purplish discoloration Condition: stable Disposition: PACU (Then to same-day surgery for discharge to home) Brief History: This 35-year-old woman presented with complaints of severe carpal tunnel syndrome. She had findings consistent with carpal tunnel syndrome, and after discussion, she wished to proceed with operative intervention to address this issue. Risks and complications were discussed with her preoperatively. Consents were signed. Questions were answered. Procedure: The patient was brought to the operating theater. The patient had a [place] block with MAC. The tourniquet was elevated to 250 mmHg for a total tourniquet time of 31 minutes. The patient was also given Ancef 2 g preoperatively. The arm was then prepped and draped with DuraPrep in usual fashion with the arm draped free. A surgical pause was performed. At the time, the surgical pause, we confirmed the site and side of surgery. We also confirmed the patient's identity, appropriate and timely administration of preoperative antibiotics and preoperative surgical markings. An incision was then made along the thenar crease. The incision crossed the wrist joint in a curvilinear fashion. Dissection continued through skin and soft tissues using a scalpel. The palmaris longus was identified along with the transverse carpal ligament. Each of these was released carefully to avoid injury to the median nerve. We were able to dissect gently into the carpal canal which was noted to be quite tight with significant compression across the median nerve. The nerve was visualized and was an hourglass shape. There was also significant purplish discoloration to the nerve and inflammation. The canal was subsequently palpated to assure there was no bony encroachment upon the canal. There was a quite thickened fibrous tissue within the canal, and this was opened longitudinally as well. The canal was then palpated distally and proximally to assure that my small finger was passed easily without impingement. Finding this to be so, attention was directed to closure. The wound was irrigated with ropivacaine plain. It was then closed with 3-0 nylon in an interrupted mattress fashion. Sterile dressing was then placed consisting of OpSite, fluffed fluffs, sterile soft roll, a volar splint, and an Corey wrap. The tourniquet was released after 31 minutes. There were no complications. There were no specimens. The procedure was well tolerated. Plan is the patient will be discharged home. Associated Problem List Diagnoses (1) Carpal tunnel syndrome on right:
[2020-12-12 11:25] VITALS: BP 118/86; PULSE 86; RESP 14; O2SAT 92
[2020-12-12 11:30] VITALS: BP 116/85; PULSE 81; RESP 16; TEMP 36.5; O2SAT 94
[2020-12-12 11:46] VITALS: BP 132/87; PULSE 86; RESP 16; TEMP 36.7
--- NOTE | 2020-12-12 14:22 | ANE.PACU2 ---
Inpatient post-anesthesia follow up: Airway intact: Yes Vital signs: Temperature 98.0 F Pulse Rate 86 Respiratory Rate 16 Blood Pressure 132/87 Pulse Oximetry 94 Oxygen Delivery Me thod Room Air Oxygen Flow Rate 2 Fraction of Inspir ed Oxygen Hydration adequate: Yes Nausea and vomiting: No Pain level: 1 Mental status: Baseline
== END 2020-12-12 12:16 | disposition home or self-care (01) ==
PROVIDERS: PCP Nurse Practitioner; Visit Provider Specialist
PROC: (CPT 64721; principal; 2020-12-12 10:55)
DX: G56.01 Carpal tunnel syndrome, right upper limb (principal); J44.9 Chronic obstructive pulmonary disease, unspecified; E66.01 Morbid (severe) obesity due to excess calories; Z68.41 Body mass index [BMI] 40.0-44.9, adult; F41.9 Anxiety disorder, unspecified; F32.9 Major depressive disorder, single episode, unspecified; Z82.49 Family history of ischemic heart disease and other diseases of the circulatory system; Z83.3 Family history of diabetes mellitus; F17.210 Nicotine dependence, cigarettes, uncomplicated
CPT/HCPCS: 64721; 96365; J0690; J2250; J2704; J3010; J3490; J7030

== ENCOUNTER → 2021-01-27 07:13 | Outpatient (BNVA) | payer MEDICARE, SELFPAY ==
[2020-10-29 13:39] VITALS: BP 115/75; BMI 42.7
== END ==
PROVIDERS: PCP Nurse Practitioner; Visit Provider Nurse Practitioner Psychiatric/Mental Health
DX: F33.1 Major depressive disorder, recurrent, moderate (principal); F41.0 Panic disorder [episodic paroxysmal anxiety]; F43.12 Post-traumatic stress disorder, chronic; F17.210 Nicotine dependence, cigarettes, uncomplicated
CPT/HCPCS: 99214

== ENCOUNTER → 2021-03-30 11:14 | Outpatient (BNVA) | payer MEDICARE, MEDICAID, SELFPAY ==
[2020-10-29 13:39] VITALS: BP 115/75; BMI 42.7
== END ==
PROVIDERS: PCP Nurse Practitioner; Visit Provider Specialist
DX: G56.02 Carpal tunnel syndrome, left upper limb (principal); Z20.822 Contact with and (suspected) exposure to COVID-19
CPT/HCPCS: 87635

== ENCOUNTER 2021-04-03 06:29 | Day surgery (SDC) | payer MEDICARE, MEDICAID, SELFPAY ==
[2020-10-29 13:39] VITALS: BP 115/75; BMI 42.7
[2021-04-02 15:36] VITALS: BMI 45.3
[2021-04-03 06:53] VITALS: BP 122/95; PULSE 87; RESP 18; TEMP 36.1; O2SAT 96
--- NOTE | 2021-04-03 06:56 | W.PM.OPSUD ---
Surgery/Procedure H&P Update DATE OF PROCEDURE: April 03, 2021 DATE H&P PERFORMED: 03/30/21 H&P UPDATE INFORMATION: I have reviewed H&P completed within last 30 days, I have examined patient prior to procedure, No changes to prior documentation and H&P is in [facility] [place] EMR on date indicated PREOP DIAGNOSIS: Left carpal tunnel syndrome PLANNED PROCEDURE: Operation Date: 04/03/21 08:10 Proposed Procedures p Carpal Tunnel Release 97274 G56.00(Left) - Linh Carver MD Related Problem List Diagnoses (1) Carpal tunnel syndrome, left:
[2021-04-03] MEDS: CELEcoxib 100 mg Capsule 400 MG PO (07:05)
[2021-04-03] MEDS: sodium chloride 0.9% 1,000 ML 30 ML IV (07:07)
[2021-04-03] MEDS: acetaminophen 1,000 MG/100 ML PIGGYBACK 400 MG IV (07:07)
--- NOTE | 2021-04-03 07:59 | ANES.PREANE2 ---
Pre-Anesthetic Assessment Pre-Anesthetic Assessment: Height/Weight: Height 1.6 m Weight 116.12 kg Temp Pulse Resp BP Pulse Ox 97.0 F L 87 18 122/95 96 04/03/21 06:53 04/03/21 06:53 04/03/21 06:53 04/03/21 06:53 04/03/21 06:53 Preop Diagnosis: Left carpal tunnel syndrome Proposed Procedure: Operation Date: 04/03/21 08:10 Proposed Procedures p Carpal Tunnel Release 56677 G56.00(Left) - Linh Carver MD Was Beta Roxy taken within 24 hours: N/A Was Clonidine taken within 24 hours: N/A Last intake: Intake Last Liquid Date 04/02/21 Last Liquid Time 19:00 Last Solid Date 04/02/21 Last Solid Time 19:00 Social: Social History: Tobacco and No alcohol Exam: Pre-Anes Outpt Exam: alert, oriented x 3 and regular rate & rhythm Airway: Submandibular: WNL Cervical ROM: WNL MP: 2 Dentition: False Pulmonary: Pulmonary: COPD Neuropsych: Neuropsych: Anxiety, Depression and Neuropathy Anesthetic Plan: ASA status: 3 Anesthesia: MAC and Regional (specify below) ([place]) Risk of > 500 ml blood loss (7ml/kg in children): No Meds/Allergies Current Medications: Current Medications Generic Name Dose Route Start Last Admin Trade Name Freq PRN Reason Stop Dose Admin Sodium Chloride 1,000 mls @ 30 ml s/hr 04/03/21 06:45 04/03/21 07:07 Sodium Chloride 0.9% IV 04/04/21 06:44 30 mls/hr .Q24H PHAM Administration PFSH Anesthesia PFSH: Medical History Chronic post-traumatic stress disorder Major depressive disorder, recurrent episode, moderate with anxious distress Nicotine dependence, cigarettes, uncomplicated Panic disorder without agoraphobia Urolithiasis Surgical History Hx of cholecystectomy Hx of hysterectomy Family History Other CAD (coronary artery disease) Diabetes Social History Smoking and tobacco status: current every day smoker cigarettes Packs smoked per day: 1 Alcohol intake: unknown Adopted: No Caregiver/support person: No Lives independently: Yes Marital status: Single Current occupational status: disabled History of recent travel: No Current gender identity: Female Data Anesthesia Cardiac Studies: No Data to Display
[2021-04-03 09:21] VITALS: BP 163/119; PULSE 89; RESP 15; TEMP 36.5; O2SAT 96
[2021-04-03 09:25] VITALS: BP 155/98; PULSE 89; RESP 16; TEMP 36.5; O2SAT 96
--- NOTE | 2021-04-03 09:27 | P.OP_ITS ---
Operative Report Date of procedure: April 03, 2021 Pre-op Diagnosis: Left carpal tunnel syndrome Post-op diagnosis: same Post-op Findings: Significant compression and discoloration of the median nerve Procedure Done: Left carpal tunnel release Pathology: none sent Surgeon: Linh Carver Metal Building Assembler: None Anesthesia: MAC (With [place] block and IV sedation, ASA 3) Estimated blood loss (mL): 1 Tourniquet time (min): 40 IV fluids (mL): 600 Urine output (mL): 0 Urine output: No Tan Complications: None Findings: Severe compression across the carpal canal with purplish discoloration and hourglass deformity of the median nerve Condition: stable Disposition: PACU (Then to home with family) Brief History: This 35-year-old woman presented with complaints of severe left carpal tunnel syndrome. Previously, she had a right carpal tunnel release which was successful for her. She wished to proceed with left release. She had findings consistent with carpal tunnel syndrome, and after discussion, she wished to proceed with operative intervention to address this issue. Risks and complications were discussed with her preoperatively. Consents were signed. Questions were answered. Procedure: The patient was brought to the operating theater. The patient had a [place] block with MAC. The tourniquet was elevated to 250 mmHg for a total tourniquet time of 40 minutes. The patient was also given Ancef 2 g preoperatively. The arm was then prepped and draped with DuraPrep in usual fashion with the arm draped free. A surgical pause was performed. At the time, the surgical pause, we confirmed the site and side of surgery. We also confirmed the patient's identity, appropriate and timely administration of preoperative antibiotics and preoperative surgical markings. An incision was then made along the thenar crease. The incision crossed the wrist joint in a curvilinear fashion. Dissection continued through skin and soft tissues using a scalpel. The palmaris longus was identified along with the transverse carpal ligament. Each of these was released carefully to avoid injury to the median nerve. We were able to dissect gently into the carpal canal which was noted to be quite tight with significant compression across the median nerve. The nerve was visualized and was an hourglass shape. There was also significant purplish discoloration to the nerve and inflammation. The canal was subsequently palpated to assure there was no bony encroachment upon the canal. There was a quite thickened fibrous tissue within the canal, and this was opened longitudinally as well. The canal was then palpated distally and proximally to assure that my small finger was passed easily without impingement. Finding this to be so, attention was directed to closure. The wound was irrigated with ropivacaine plain. It was then closed with 3-0 nylon in an interrupted mattress fashion. Sterile dressing was then placed consisting of OpSite, fluffed fluffs, sterile soft roll, a volar splint, and an Corey wrap. The tourniquet was released after 40 minutes. There were no complications,but surgical time was extended secondary to the patient becoming somewhat obstructed, and she pulled her IV out. There were no specimens. The procedure was well tolerated. Plan is the patient will be discharged home. Associated Problem List Diagnoses (1) Carpal tunnel syndrome, left:
[2021-04-03 09:33] VITALS: BP 149/97; PULSE 86; RESP 16; TEMP 36.5; O2SAT 97
[2021-04-03 10:01] VITALS: BP 152/97; PULSE 88; RESP 17; TEMP 36.5; O2SAT 98
--- NOTE | 2021-04-03 13:19 | ANE.PACU2 ---
Inpatient post-anesthesia follow up: Airway intact: Yes Vital signs: Temperature 97.7 F Pulse Rate 88 Respiratory Rate 17 Blood Pressure 152/97 Pulse Oximetry 98 Oxygen Delivery Me thod Room Air Oxygen Flow Rate Fraction of Inspir ed Oxygen Hydration adequate: Yes Nausea and vomiting: No Pain level: 1 Mental status: Baseline
== END 2021-04-03 10:02 | disposition home or self-care (01) ==
PROVIDERS: PCP Nurse Practitioner; Visit Provider Specialist
PROC: (CPT 64721; principal; 2021-04-03 08:00)
DX: G56.02 Carpal tunnel syndrome, left upper limb (principal); J44.9 Chronic obstructive pulmonary disease, unspecified; F17.210 Nicotine dependence, cigarettes, uncomplicated
CPT/HCPCS: 64721; 96365; J0690; J2704; J3010; J3490; J7030

== ENCOUNTER → 2021-04-29 07:52 | Outpatient (BNVA) | payer MEDICARE, MEDICAID, SELFPAY ==
[2020-10-29 13:39] VITALS: BP 115/75; BMI 42.7
== END ==
PROVIDERS: PCP Nurse Practitioner; Visit Provider Nurse Practitioner Psychiatric/Mental Health
DX: F33.1 Major depressive disorder, recurrent, moderate (principal); F41.0 Panic disorder [episodic paroxysmal anxiety]; F43.12 Post-traumatic stress disorder, chronic; F17.210 Nicotine dependence, cigarettes, uncomplicated
CPT/HCPCS: 99214

== ENCOUNTER → 2021-07-22 07:25 | Outpatient (BNVA) | payer MEDICARE, MEDICAID, SELFPAY ==
[2021-07-17 09:07] VITALS: BP 115/75; BMI 42.7
== END ==
PROVIDERS: PCP Nurse Practitioner; Visit Provider Nurse Practitioner Psychiatric/Mental Health
DX: F33.1 Major depressive disorder, recurrent, moderate (principal); F41.0 Panic disorder [episodic paroxysmal anxiety]; F43.12 Post-traumatic stress disorder, chronic; F17.210 Nicotine dependence, cigarettes, uncomplicated
CPT/HCPCS: 99214

== ENCOUNTER → 2021-08-05 11:04 | Outpatient (BNVA) | payer MEDICARE, SELFPAY ==
[2021-07-17 09:07] VITALS: BP 115/75; BMI 42.7
== END ==
PROVIDERS: PCP Nurse Practitioner; Visit Provider Dermatology
DX: F33.1 Major depressive disorder, recurrent, moderate (principal); Z71.9 Counseling, unspecified
CPT/HCPCS: 80061; 83036

== ENCOUNTER → 2021-09-01 07:49 | Outpatient (BNVA) | payer MEDICARE, MEDICAID, SELFPAY ==
[2021-08-10 11:47] VITALS: BP 112/81; BMI 44.3
== END ==
PROVIDERS: PCP Nurse Practitioner; Visit Provider Nurse Practitioner Psychiatric/Mental Health
DX: F33.1 Major depressive disorder, recurrent, moderate (principal); F41.0 Panic disorder [episodic paroxysmal anxiety]; F43.12 Post-traumatic stress disorder, chronic; F17.210 Nicotine dependence, cigarettes, uncomplicated
CPT/HCPCS: 99214

== ENCOUNTER → 2021-10-27 09:06 | Outpatient (BNVA) | payer MEDICARE, MEDICAID, SELFPAY ==
[2021-08-10 11:47] VITALS: BP 112/81; BMI 44.3
== END ==
PROVIDERS: PCP Nurse Practitioner; Visit Provider Nurse Practitioner Psychiatric/Mental Health
DX: F33.1 Major depressive disorder, recurrent, moderate (principal); F41.0 Panic disorder [episodic paroxysmal anxiety]; F43.12 Post-traumatic stress disorder, chronic; F17.210 Nicotine dependence, cigarettes, uncomplicated
CPT/HCPCS: 99214

== ENCOUNTER → 2021-11-24 07:52 | Outpatient (BNVA) | payer MEDICARE, MEDICAID, SELFPAY ==
[2021-08-10 11:47] VITALS: BP 112/81; BMI 44.3
== END ==
PROVIDERS: PCP Nurse Practitioner; Visit Provider Nurse Practitioner Psychiatric/Mental Health
DX: F33.1 Major depressive disorder, recurrent, moderate (principal); F41.0 Panic disorder [episodic paroxysmal anxiety]; F43.12 Post-traumatic stress disorder, chronic
CPT/HCPCS: 99214

== ENCOUNTER → 2022-08-05 13:58 | Outpatient (BNVA) | payer MEDICARE, MEDICAID, SELFPAY ==
[2021-08-10 11:47] VITALS: BP 112/81; BMI 44.3
== END ==
PROVIDERS: PCP Family Medicine; Visit Provider Family Medicine
DX: G43.909 Migraine, unspecified, not intractable, without status migrainosus (principal); K21.9 Gastro-esophageal reflux disease without esophagitis; E03.9 Hypothyroidism, unspecified; F41.0 Panic disorder [episodic paroxysmal anxiety]; M54.2 Cervicalgia; G89.29 Other chronic pain; E78.5 Hyperlipidemia, unspecified; S93.602A Unspecified sprain of left foot, initial encounter; Z13.1 Encounter for screening for diabetes mellitus; S83.91XA Sprain of unspecified site of right knee, initial encounter; F33.1 Major depressive disorder, recurrent, moderate; G43.009 Migraine without aura, not intractable, without status migrainosus; E78.2 Mixed hyperlipidemia; Z76.89 Persons encountering health services in other specified circumstances; X58.XXXA Exposure to other specified factors, initial encounter
CPT/HCPCS: 80053; 80061; 84443

== ENCOUNTER → 2023-02-01 13:46 | Outpatient (BNVA) | payer MEDICARE, MEDICAID, SELFPAY ==
[2021-08-10 11:47] VITALS: BP 112/81; BMI 44.3
== END ==
PROVIDERS: PCP Family Medicine; Visit Provider Family Medicine
DX: M65.331 Trigger finger, right middle finger (principal); M17.11 Unilateral primary osteoarthritis, right knee; E03.9 Hypothyroidism, unspecified; R73.03 Prediabetes; G43.909 Migraine, unspecified, not intractable, without status migrainosus; F41.0 Panic disorder [episodic paroxysmal anxiety]; M54.2 Cervicalgia; G89.29 Other chronic pain; E78.5 Hyperlipidemia, unspecified; L25.9 Unspecified contact dermatitis, unspecified cause
CPT/HCPCS: 73562; 83036; 84439; 84443; 84481

== ENCOUNTER → 2023-03-09 10:19 | Outpatient (BNVA) | payer MEDICARE, MEDICAID, SELFPAY ==
[2021-08-10 11:47] VITALS: BP 112/81; BMI 44.3
== END ==
PROVIDERS: PCP Family Medicine; Referring Provider Family Medicine; Visit Provider Specialist
DX: M12.561 Traumatic arthropathy, right knee; E66.01 Morbid (severe) obesity due to excess calories; Z68.42 Body mass index [BMI] 45.0-49.9, adult; Z46.89 Encounter for fitting and adjustment of other specified devices
CPT/HCPCS: 73560; 73565; 97760; 99214; L1812

== ENCOUNTER 2023-03-09 14:01 | Outpatient (CLI) | payer MEDICARE, MEDICAID, SELFPAY ==
[2021-08-10 11:47] VITALS: BP 112/81; BMI 44.3
== END 2023-03-09 14:02 | disposition home or self-care (01) ==
LOC: SPT 14:01
PROVIDERS: PCP Family Medicine; Visit Provider Specialist
DX: Z46.89 Encounter for fitting and adjustment of other specified devices (principal); M12.561 Traumatic arthropathy, right knee; E66.01 Morbid (severe) obesity due to excess calories; Z68.42 Body mass index [BMI] 45.0-49.9, adult
CPT/HCPCS: 97760; 99214; L1812

== ENCOUNTER → 2023-11-15 13:47 | Outpatient (BNVA) | payer MEDICARE, MEDICAID, SELFPAY ==
[2021-08-10 11:47] VITALS: BP 112/81; BMI 44.3
== END ==
PROVIDERS: PCP Family Medicine; Visit Provider Nurse Practitioner Family
DX: R42 Dizziness and giddiness (principal); R51.9 Headache, unspecified; E03.9 Hypothyroidism, unspecified; E78.2 Mixed hyperlipidemia
CPT/HCPCS: 84439; 84443; 84481

== ENCOUNTER 2023-12-27 08:54 | Emergency (ER) | payer MEDICAID, SELFPAY ==
[2021-08-10 11:47] VITALS: BP 112/81; BMI 44.3
[2023-12-27 08:58] VITALS: BP 115/81; PULSE 99; RESP 16; TEMP 37.3; O2SAT 99
--- NOTE | 2023-12-27 09:02 | ECG_ITS ---
[facility] Test Date: 2023-12-27 Pat Name: Magalie Dobbs Department: Room: Gender: Female Paleology Teacher: : 1985 Requested By: Sylwia Vines Order Number: [id number] Estrella MD: Dalila Cordoba M.D. Measurements Intervals [place] Rate: 88 P: 55 DE: 150 QRS: 92 QRSD: 100 T: 50 QT: 354 QTc: 429 Interpretive Statements SINUS RHYTHM BORDERLINE RIGHT AXIS DEVIATION [QRS AXIS > 90] Compared to ECG 11/25/2019 19:09:10 No significant changes Electronically Signed On 12-27-2023 22:11:47 CDT by Dalila Cordoba M.D. [email or web address]
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
[2023-12-27 09:09] VITALS: BP 115/81; PULSE 97; RESP 17; O2SAT 98
[2023-12-27 09:42] LABS: Basophils # 0.1 10^3/uL (0.0-0.1); Basophils % 1.1 %; Eosinophils # 0.1 10^3/uL (0.0-0.8); Eosinophils % 2.5 %; Lymphocytes # 1.8 10^3/uL (0.8-4.8); Lymphocytes % 37.6 %; Mean Corpuscular HGB Conc 29.1 g/dL (30-55); Mean Corpuscular Hemoglobin 26.3 pg (27-33); Mean Corpuscular Volume 90.3 fl (85-98); Mean Platelet Volume 10.5 fL (7.4-10.4); Monocytes # 0.4 10^3/uL (0.2-0.9); Monocytes % 8.8 %; Neutrophils # 2.38 10^3/uL (1.8-7.7); Nucleated Red Blood Cells % 0 %; Platelet Count 180 10^3/cmm (157-399); Red Blood Count 4.76 10^6/uL (3.85-5.65); Red Cell Distribution Width 17.8 % (12.1-15.1); White Blood Count 4.76 10^3/uL (3.29-11.43)
[2023-12-27] MEDS: meclizine 25 mg tablet 50 MG PO (09:49)
[2023-12-27] MEDS: sodium chloride 0.9% 1,000 ML 999 ML IV (09:50)
[2023-12-27 09:55] LABS: Alanine Aminotransferase 13 U/L (0-33); Albumin Level 3.4 g/dL (3.5-5.2); Alkaline Phosphatase 84 U/L (35-105); Aspartate Amino Transferase 19 U/L (0-32); Blood Urea Nitrogen 11 mg/dL (6-20); Calcium 8.9 mg/dL (8.5-10.5); Carbon Dioxide 21 mmol/L (22-29); Chloride 106 mmol/L (98-107); Creatinine Clr Calc Pharmacy 222.9823; Globulin 2.9 g/dL (1.3-4.6); Glomerular Filtration Rate 177.7 mL/min (90-130); Glucose 97 mg/dL (65-115); Osmolality Calculated 293 mOsm/kg (285-295); Sodium 142 mmol/L (136-145); Total Bilirubin 0.3 mg/dL (0.15-1.2); Total Protein 6.3 g/dL (6.6-8.7)
[2023-12-27 09:56] LABS: Anion Gap 18.5 (5-19); Potassium 3.5 mmol/L (3.5-5.1)
--- NOTE | 2023-12-27 10:02 | PC.PHAR ---
PT STATES STOPPED MOST OF HER MEDICATIONS DUE TO BEING OUT OF REFILLS AND HAS NOT BEEN SEEN AT HER DOCTORS OFFICE. PT STOPPED GABAPENTIN BECAUSE IT MAKES HER FEEL FUNNY. PT ALSO NOT TAKING THYROID OR CHOLESTEROL MEDICATION.
[2023-12-27 10:20] LABS: Thyroid Stimulating Hormone 6.69 uIU/mL (0.27-4.20)
[2023-12-27 10:28] VITALS: BP 121/90; BP 122/92; BP 95/78; PULSE 107; PULSE 73; PULSE 90
[2023-12-27 10:58] VITALS: BP 115/81; PULSE 97; RESP 17; TEMP 37.3; O2SAT 98
--- NOTE | 2023-12-28 08:59 | DCPLANNER ---
Message sent to [facility].
== END 2023-12-27 10:59 | disposition home or self-care (01) ==
PROVIDERS: Emergency Provider Physician Assistant; PCP Family Medicine
DX: R42 Dizziness and giddiness (principal); E03.9 Hypothyroidism, unspecified; I95.1 Orthostatic hypotension; Z91.148 Patient's other noncompliance with medication regimen for other reason; F17.290 Nicotine dependence, other tobacco product, uncomplicated
CPT/HCPCS: 80053; 84443; 85025; 93005; 99284; J7030; J8597

== ENCOUNTER 2023-12-29 19:10 | Emergency (ER) | payer MEDICAID, SELFPAY ==
[2021-08-10 11:47] VITALS: BP 112/81; BMI 44.3
[2023-12-29 19:21] VITALS: BP 127/80; PULSE 101; RESP 16; TEMP 36.9; O2SAT 94
--- NOTE | 2023-12-29 19:27 | ED_ITS ---
HPI - Skin/Abscess/Foreign Bdy General: Chief complaint: Skin/Abscess/Foreign Body Stated complaint: Red bumps on legs arms and back Time Seen by Provider: 12/29/23 19:26 Source: patient Mode of arrival: wheelchair Limitations: no limitations History of Present Illness: Patient is a 38-year-old female who presents to ED today with complaint of multiple skin lesions that she first noticed yesterday and has since spread. She states she has mainly noticed them on her trunk and extremities. She states that they do not hurt or bother her. States they are not currently itchy. Tried Benadryl without much improvement. No systemic symptoms. No tongue/lip swelling or difficulty breathing. No other individuals in the home with similar lesions. No new chemical/environments/medication exposures. Does have a dog in the house but no concerns for flea/ticks. MD complaint: rash and lesion Onset (ago): day(s) Tetanus up to date: yes Location: generalized Severity: mild Relieving factors: none Exacerbating factors: none Context: none Associated symptoms: Reports no associated symptoms; Deny chills, fever(s), nausea or vomiting Treatments prior to arrival: Benadryl Review of Systems Const: Denies: fever(s), chills, body aches, fatigue or malaise Card: Denies: chest pain Resp: Denies: dyspnea GI: Denies: abdominal pain, nausea, vomiting or diarrhea Musc: Denies: neck pain, back pain, extremity pain or joint pain Skin/Breast: Reports: rash Neuro: Denies: headache(s), numbness in extremities, weakness in extremities or sensory changes [facility] ED PFSH: Medical History Nicotine dependence, other tobacco product, uncomplicated Vaping 6 mg Nicotine Chronic post-traumatic stress disorder Major depressive disorder, recurrent episode, moderate with anxious distress Panic disorder without agoraphobia Urolithiasis Surgical History Hx of hysterectomy Hx of cholecystectomy Family History Mother Diabetes CAD (coronary artery disease), Onset Age: 59 Brother CAD (coronary artery disease), Onset Age: 30 Social History (Reviewed 12/29/23 @ 19:41 by HECTOR Donato Smoking and tobacco/nicotine status: current every day tobacco/nicotine user (vape) Alcohol intake: former Substance/Drug Use: former Adopted: No Caregiver/support person: No Lives independently: Yes Household members: significant other and children Housing: Manufactured/Mobile home Marital status: Single Number of children: 2 Number of grandchildren: 0 Highest education level completed: High School Graduate Current occupational status: disabled Current occupational exposures/hazards: No Pets and animals: Yes Pets & animals: cat(s) Leisure activites: art and other Leisure activities details: Watch TV Sexually active: Yes Do you think of yourself as: Straight/Heterosexual Current gender identity: Female Mary/Episcopal: None Special mary needs: No Female Reproductive History: Para: 2 Physical Exam Const: COMMON NORMALS: no acute distress, no limitations and alert GENERAL APPEARANCE: cooperative NUTRITIONAL APPEARANCE: obese ORIENTATION/CONSCIOUSNESS: Yes awake, Yes oriented to person, Yes oriented to place and Yes oriented to time HENMT: FACE & SINUS: normal facial exam MOUTH: Normal oral and palatal mucosa present and lip normal Eye: GENERAL EYE: appearance normal, both eyes and all related structures Neck/C-Spine: COMMON NORMALS: no lymphadenopathy GENERAL: No anterior neck swelling and No submandibular swelling Extremity: GENERAL: Yes normal exam except as noted Neuro: COMMON NORMALS: moves all extremities, no focal motor deficits and no sensory deficits noted SENSORIUM/ORIENTATION: Yes alert, Yes oriented to person, Yes oriented to place and Yes oriented to time Skin: NARRATIVE SKIN EXAM: multiple small 1cm or less erythematous wheel lesions to back, dorsal forearms, exposed areas of lower legs; none noted to face/neck RASHES: rashes noted Course Vital Signs: Vital signs: Vital Signs Temperature 98.4 F 12/29/23 19:21 Pulse Rate 101 H 12/29/23 19:21 Respiratory Rate 16 12/29/23 19:21 Blood Pressure 127/80 12/29/23 19:21 Pulse Oximetry 94 12/29/23 19:21 Oxygen Delivery Me thod Room Air 12/29/23 19:21 MDM - Skin/Abscess/Foreign Bdy Medicial Decision Making Lesions at this time are suspicious for possible bites of some sort. Discussed treating conservatively and watching symptoms closely. Return to ED precautions given. Otherwise she can follow-up with primary care next week. Medical Records I reviewed the patient's medical records. No radiology studies performed this visit Discharge Plan Discharge Patient Disposition: Home Clinical Impression: Skin lesion Condition: Stable Prescriptions: No Action acetaminophen [Tylenol Arthritis Pain] 650 mg tablet extended release 1,300 mg PO Q8H PRN (Reason: pain) (DME) HINGED KNEE BRACE See Rx Instructions .Route .MEDSUPPLY Qty: 1 0RF Rx Instructions: As directed fenofibrate 54 mg tablet 54 mg PO DAILY 90 Days Qty: 90 3RF gabapentin 300 mg capsule 300 mg PO TID 90 Days Qty: 270 2RF propranolol 20 mg tablet 20 mg PO BID 90 Days Qty: 180 2RF fluoxetine [Prozac] 40 mg capsule 40 mg PO QAM 90 Days Qty: 90 2RF Rx Instructions: ALONG WITH 20 MG TO= 60MG TOTAL diclofenac sodium 75 mg tablet,delayed release (DR/EC) 75 mg PO BID PRN (Reason: pain) 30 Days Qty: 60 6RF levothyroxine 137 mcg tablet 137 mcg PO DAILY 90 Days Qty: 90 0RF Rx Instructions: dose increase hydroxyzine pamoate 50 mg capsule 50 mg PO BID PRN (Reason: Anxiety) Benadryl 25 mg Capsule 25 mg PO TID PRN (Reason: ALLERGIES) ibuprofen 200 mg Tablet 1,000 mg PO Q6H PRN (Reason: Pain) amitriptyline 25 mg tablet 25 mg PO BEDTIME PRN (Reason: Sleep) pantoprazole 40 mg tablet,delayed release (DR/EC) 40 mg PO BEDTIME Prozac 20 mg capsule 20 mg PO QAM Rx Instructions: ALONG WITH 40MG TO= 60MG TOTAL cyclobenzaprine 5 mg tablet 5 - 10 mg PO BEDTIME PRN (Reason: muscle spasm) Discharge Orders: Discharge ED (Routine); Ordered 12/29/23 Ordered By: Sylwia Vines Referrals: Heidi Castellano MD [Primary Care Provider] - Activity Restrictions/Additional Instructions: As we discussed this time appears benign/non-concerning. At this time they look suspicious for possible insect bites. Clinical course may foreign exchange position clerk the next couple of days to watch lesions carefully. You may attempt treating with topical hydrocortisone cream and diphenhydramine (benadryl) to see if this helps. Please follow-up with primary care next week if they do not seem to be improving. You may return to the emergency department for worsening rash or any new accompanying symptoms. Coding Level of Care Code ED Fish Inspector for Michelle German
== END 2023-12-29 19:47 | disposition home or self-care (01) ==
PROVIDERS: Emergency Provider Physician Assistant; PCP Family Medicine
DX: L98.9 Disorder of the skin and subcutaneous tissue, unspecified (principal); F17.290 Nicotine dependence, other tobacco product, uncomplicated
CPT/HCPCS: 99281

== ENCOUNTER 2024-01-06 10:05 | Emergency (ER) | payer MEDICARE, MEDICAID, SELFPAY ==
[2021-08-10 11:47] VITALS: BP 112/81; BMI 44.3
[2024-01-06] VITALS (39 sets, daily range): BP systolic 102–139; BP diastolic 64–92; PULSE 66–103; RESP 11–24; TEMP 36.7; O2SAT 91–98; BMI 39.4
--- NOTE | 2024-01-06 10:09 | ECG_ITS ---
[facility] Test Date: 2024-01-06 Pat Name: Magalie Dobbs Department: Room: Gender: Female Churner: : 1985 Requested By: Kevin Solano Order Number: [id number] Estrella MD: Collette Quintanilla M.D. Measurements Intervals [place] Rate: 93 P: 45 [place]: 112 QRS: 90 QRSD: 102 T: 48 QT: 370 QTc: 460 Interpretive Statements SINUS RHYTHM Compared to ECG 12/27/2023 09:02:16 No significant change Electronically Signed On 01-06-2024 11:38:55 CDT by Collette Quintanilla M.D. [email or web address] [email or web address]/store/[id number] f
--- NOTE | 2024-01-06 10:09 | XRR_ITS ---
PROCEDURE INFORMATION: Exam: XR Chest Exam date and time: 01/06/2024 10:18 AM Age: 38 years old Clinical indication: Cough and dyspnea; Additional info: Dyspnea/cough TECHNIQUE: Imaging protocol: Radiologic exam of the chest. Views: 1 view. COMPARISON: CR XR chest 1V portable [id number] 11/25/2019 5:26 PM FINDINGS: Lungs: Unremarkable. No consolidation. Pleural spaces: Unremarkable. No pleural effusion. No pneumothorax. Heart/Mediastinum: Unremarkable. No cardiomegaly. Bones/joints: Unremarkable. XR/XR chest 1V portable [id number] IMPRESSION: No acute findings.
--- NOTE | 2024-01-06 10:09 | ED_ITS ---
HPI - Chest Pain 2 General: Chief Complaint: Chest Pain Stated Complaint: chest pain Time Seen by Provider: 01/06/24 10:08 Source: patient Mode of arrival: ambulatory History of Present Illness: 38-year-old female presents to the [facility] ency room with complaints of chest pain that started today. Began this morning while she was doing her morning routine around her home with her kids is worse with movement. Pain is located on the left side does not extend into the arms neck or back. It began while she was getting her kids ready this morning and she said she took a nap when she awoke the pain was still present but after arriving here it is completely resolved. She has no known history of DVT no known history of coronary artery disease she is not diabetic no history of arrhythmias. MD complaint: chest pain Associated symptoms: Deny abdominal pain, dyspnea or fever(s) Review of Systems 2 Const: Denies: fever(s) or chills Card: Denies: chest pain Resp: Denies: dyspnea GI: Denies: abdominal pain : Denies: dysuria, urinary frequency or urinary urgency Musc: Denies: neck pain or back pain Skin/Breast: Denies: rash PFSH ED 2 PFSH: Medical History Nicotine dependence, other tobacco product, uncomplicated Vaping 6 mg Nicotine Chronic post-traumatic stress disorder Major depressive disorder, recurrent episode, moderate with anxious distress Panic disorder without agoraphobia Urolithiasis Surgical History Hx of hysterectomy Hx of cholecystectomy Family History Mother Diabetes CAD (coronary artery disease), Onset Age: 59 Brother CAD (coronary artery disease), Onset Age: 30 Social History Smoking and tobacco/nicotine status: current every day tobacco/nicotine user (vape) Alcohol intake: former Substance/Drug Use: former Adopted: No Caregiver/support person: No Lives independently: Yes Household members: significant other and children Housing: Manufactured/Mobile home Marital status: Single Number of children: 2 Number of grandchildren: 0 Highest education level completed: High School Graduate Current occupational status: disabled Current occupational exposures/hazards: No Pets and animals: Yes Pets & animals: cat(s) Leisure activites: art and other Leisure activities details: Watch TV Sexually active: Yes Do you think of yourself as: Straight/Heterosexual Current gender identity: Female Mary/Restorationism: None Special mary needs: No Female Reproductive History: Para: 2 Physical Exam 2 Const: COMMON NORMALS: no acute distress GENERAL APPEARANCE: cooperative and comfortable ORIENTATION/CONSCIOUSNESS: Yes awake, Yes oriented to person, Yes oriented to place and Yes oriented to time HENMT: COMMON NORMALS: normocephalic, atraumatic and hearing grossly normal bilaterally HEAD & SCALP: normocephalic and atraumatic Resp: COMMON NORMALS: normal respiratory effort, No retractions, No use of accessory muscles and clear to auscultation bilaterally AUSCULTATION: clear to auscultation bilaterally Cardio: COMMON NORMALS: regular rate, regular rhythm and No murmurs present (Cardio) RATE: regular rate RHYTHM: regular rhythm GI: COMMON NORMALS: Soft to palpation and No hepatosplenomegaly present A USCULTATION: Yes normoactive bowel sounds PALPATION: Yes Soft to palpation, No Tenderness to palpation present (GI), No Guarding due to palpation present (GI) and Yes No hepatosplenomegaly present Extremity: COMMON NORMALS: normal to inspection, capillary refill normal, no clubbing, cyanosis or edema, no calf tenderness and no pedal edema Neuro: SENSORIUM/ORIENTATION: Yes oriented to person, Yes oriented to place and Yes oriented to time Skin: COMMON NORMALS: no rashes or lesions noted GENERAL SKIN EXAM: no rashes or lesions noted Course 2 Vital Signs: Vital signs: Vital Signs Temperature 98.1 F 01/06/24 10:06 Pulse Rate 73 01/06/24 12:55 Respiratory Rate 13 01/06/24 12:55 Blood Pressure 112/84 01/06/24 13:10 Pulse Oximetry 95 01/06/24 13:05 Oxygen Delivery Me thod Room Air 01/06/24 12:40 MDM - Chest Pain Medical Decision Making EKG and cardiac enzymes are negative patient was noted to have a little bit of hypoxia when she does a sleep she has known sleep apnea. Reviewed the findings with her we will discharge her home and can follow-up with her primary care doctor she has no further episodes of chest pain since arriving here. After we had discharged her I observed her walking past my office to the restroom. She was barely able to stand and essentially collapsed on the floor in the bathroom with the help of her son and her significant other we went to help her she is tells me that this is typical ambulation for her began about a month ago she relates it to having suddenly stopped all of her medications she has been seen for this and has been evaluated by her primary care. We offered to further evaluate her significant other encouraged her to allow us to do so the patient is insistent she does not want to do anything further she wants to go home. Strongly encouraged her to follow-up with her primary care doctor. I am concerned she may have lumbar or cervical stenosis. I relayed this concern to her despite this she still does not wish to be further evaluated Medical Records I reviewed the patient's medical records. Lab Data I reviewed the patient's lab results. 01/06/24 10:16 01/06/24 10:16 Radiology Impressions Chest X-Ray 01/06/24 10:09 IMPRESSION: No acute findings. Laboratory Results WBC 11.95 10^3/uL (3.29-11.43) H 01/06/24 10:16 RBC 5.65 10^6/uL (3.85-5.65) 01/06/24 10:16 Hgb 15.10 g/dL (11.27-16.99) 01/06/24 10:16 Hct 47.6 % (36-47) H 01/06/24 10:16 MCV 84.2 fl (85-98) L 01/06/24 10:16 MCH 26.7 pg (27-33) L 01/06/24 10:16 MCHC 31.7 g/dL (30-55) 01/06/24 10:16 RDW 19.2 % (12.1-15.1) H 01/06/24 10:16 Plt Count 297 10^3/cmm (157-399) 01/06/24 10:16 MPV 9.9 fL (7.4-10.4) 01/06/24 10:16 Neut % (Auto) 75.5 % 01/06/24 10:16 Lymph % (Auto) 16.6 % 01/06/24 10:16 Burnett % (Auto) 5.6 % 01/06/24 10:16 Eos % (Auto) 1.3 % 01/06/24 10:16 Baso % (Auto) 0.6 % 01/06/24 10:16 Neut # (Auto) 9.03 10^3/uL (1.8-7.7) H 01/06/24 10:16 Lymph # (Auto) 2.0 10^3/uL (0.8-4.8) 01/06/24 10:16 Burnett # (Auto) 0.7 10^3/uL (0.2-0.9) 01/06/24 10:16 Eos # (Auto) 0.2 10^3/uL (0.0-0.8) 01/06/24 10:16 Baso # (Auto) 0.1 10^3/uL (0.0-0.1) 01/06/24 10:16 Nucleated RBC % (auto) 0 % 01/06/24 10:16 Nucleated RBCs # 0.0 /100WBC 01/06/24 10:16 Sodium 138 mmol/L (136-145) 01/06/24 10:16 Potassium 3.7 mmol/L (3.5-5.1) 01/06/24 10:16 Chloride 99 mmol/L (98-107) 01/06/24 10:16 Carbon Dioxide 24 mmol/L (22-29) 01/06/24 10:16 Anion Gap 18.7 (5-19) 01/06/24 10:16 BUN 11 mg/dL (6-20) 01/06/24 10:16 Creatinine 0.5 mg/dL (0.5-0.9) 01/06/24 10:16 GFR Calculation 137.4 mL/min (90-130) H 01/06/24 10:16 Glucose 126 mg/dL (65-115) H 01/06/24 10:16 Calculated Osmolality 287 mOsm/kg (285-295) 01/06/24 10:16 Calcium 9.3 mg/dL (8.5-10.5) 01/06/24 10:16 Total Bilirubin 0.5 mg/dL (0.15-1.2) 01/06/24 10:16 AST 18 U/L (0-32) 01/06/24 10:16 ALT 21 U/L (0-33) 01/06/24 10:16 Alkaline Phosphatase 107 U/L (35-105) H 01/06/24 10:16 Troponin T Baseline < 6 ng/L (0-10) 01/06/24 10:16 Troponin T 120 Minute 6.00 ng/L (0-10) 01/06/24 12:11 Delta Troponin T 0.64357 ABS# (0-10) 01/06/24 12:11 Total Protein 7.6 g/dL (6.6-8.7) 01/06/24 10:16 Albumin 4.2 g/dL (3.5-5.2) 01/06/24 10:16 Globulin 3.4 g/dL (1.3-4.6) 01/06/24 10:16 All radiology interpretation(s) finalized by discharge Discharge Plan Discharge Condition: Stable Prescriptions: No Action acetaminophen [Tylenol Arthritis Pain] 650 mg tablet extended release 1,300 mg PO Q8H PRN (Reason: pain) (DME) HINGED KNEE BRACE See Rx Instructions .Route .MEDSUPPLY Qty: 1 0RF Rx Instructions: As directed fenofibrate 54 mg tablet 54 mg PO DAILY 90 Days Qty: 90 3RF gabapentin 300 mg capsule 300 mg PO TID 90 Days Qty: 270 2RF propranolol 20 mg tablet 20 mg PO BID 90 Days Qty: 180 2RF diclofenac sodium 75 mg tablet,delayed release (DR/EC) 75 mg PO BID PRN (Reason: pain) 30 Days Qty: 60 6RF levothyroxine 137 mcg tablet 137 mcg PO DAILY 90 Days Qty: 90 0RF Rx Instructions: dose increase hydroxyzine pamoate 50 mg capsule 50 mg PO BID PRN (Reason: Anxiety) diphenhydramine HCl [Benadryl] 25 mg Capsule 25 mg PO TID PRN (Reason: ALLERGIES) ibuprofen 200 mg Tablet 1,000 mg PO Q6H PRN (Reason: Pain) amitriptyline 25 mg tablet 25 mg PO BEDTIME PRN (Reason: Sleep) pantoprazole 40 mg tablet,delayed release (DR/EC) 40 mg PO BEDTIME cyclobenzaprine 5 mg tablet 5 - 10 mg PO BEDTIME PRN (Reason: muscle spasm) fluoxetine 60 mg tablet 60 mg PO DAILY Referrals: Heidi Castellano MD [Physician] - Coding Level of Care Code ED Air Bag Curer for Michelle German
[2024-01-06 10:30] LABS: Basophils # 0.1 10^3/uL (0.0-0.1); Basophils % 0.6 %; Eosinophils # 0.2 10^3/uL (0.0-0.8); Eosinophils % 1.3 %; Hematocrit 47.6 % (36-47); Lymphocytes % 16.6 %; Mean Corpuscular HGB Conc 31.7 g/dL (30-55); Mean Corpuscular Hemoglobin 26.7 pg (27-33); Mean Corpuscular Volume 84.2 fl (85-98); Mean Platelet Volume 9.9 fL (7.4-10.4); Monocytes # 0.7 10^3/uL (0.2-0.9); Monocytes % 5.6 %; Neutrophils # 9.03 10^3/uL (1.8-7.7); Neutrophils % 75.5 %; Nucleated Red Blood Cells % 0 %; Platelet Count 297 10^3/cmm (157-399); Red Blood Count 5.65 10^6/uL (3.85-5.65); Red Cell Distribution Width 19.2 % (12.1-15.1); White Blood Count 11.95 10^3/uL (3.29-11.43)
[2024-01-06 10:47] LABS: Alanine Aminotransferase 21 U/L (0-33); Albumin Level 4.2 g/dL (3.5-5.2); Alkaline Phosphatase 107 U/L (35-105); Anion Gap 18.7 (5-19); Aspartate Amino Transferase 18 U/L (0-32); Blood Urea Nitrogen 11 mg/dL (6-20); Calcium 9.3 mg/dL (8.5-10.5); Carbon Dioxide 24 mmol/L (22-29); Chloride 99 mmol/L (98-107); Globulin 3.4 g/dL (1.3-4.6); Glomerular Filtration Rate 137.4 mL/min (90-130); Glucose 126 mg/dL (65-115); Osmolality Calculated 287 mOsm/kg (285-295); Potassium 3.7 mmol/L (3.5-5.1); Sodium 138 mmol/L (136-145); Total Bilirubin 0.5 mg/dL (0.15-1.2); Total Protein 7.6 g/dL (6.6-8.7)
--- NOTE | 2024-01-06 11:06 | ECG_ITS ---
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 Measurements Intervals [place] Rate: 87 P: 43 IN: 147 QRS: 73 QRSD: 99 T: 61 QT: 382 QTc: 460 Interpretive Statements SINUS RHYTHM Compared to ECG 01/06/2024 10:11:20 no significant change Electronically Signed On 01-06-2024 11:38:34 CDT by Collette Quintanilla M.D. [id number]
[2024-01-06 11:34] LABS: Troponin(5th) Baseline < 6 ng/L (0-10)
[2024-01-06] MEDS: acetaminophen 500 mg Tablet 1000 MG PO (12:08)
[2024-01-06 12:51] LABS: Troponin 5 2HR Delta 0.00001 ABS# (0-10)
--- NOTE | 2024-01-06 12:58 | ECG_ITS ---
[facility] Test Date: 2024-01-06 Pat Name: Magalie Dobbs Department: Room: Gender: Female Registered Occupational Therapist: : 1985 Requested By: Kevin Solano Order Number: [id number] Estrella MD: Dalila Cordoba M.D. Measurements Intervals [place] Rate: 90 P: 34 WA: 116 QRS: 79 QRSD: 101 T: 42 QT: 390 QTc: 478 Interpretive Statements SINUS RHYTHM WITH SHORT WA INTERVAL Compared to ECG 01/06/2024 11:08:01 Short WA interval now present Electronically Signed On 01-06-2024 13:18:16 CDT by Dalila Cordoba M.D. [id number]
== END 2024-01-06 13:56 | disposition home or self-care (01) ==
PROVIDERS: Emergency Provider Family Medicine; PCP Family Medicine
DX: R07.9 Chest pain, unspecified (principal); F17.290 Nicotine dependence, other tobacco product, uncomplicated
CPT/HCPCS: 36415; 71045; 80053; 84484; 85025; 93005; 99285

== ENCOUNTER 2024-01-10 20:04 | Emergency (ER) | payer MEDICARE, MEDICAID, SELFPAY ==
[2021-08-10 11:47] VITALS: BP 112/81; BMI 44.3
[2024-01-10 20:06] VITALS: BP 105/73; PULSE 101; RESP 16; TEMP 36.9; O2SAT 98; BMI 39.8
[2024-01-10 20:37] VITALS: BP 146/73; PULSE 99; RESP 16; O2SAT 94
--- NOTE | 2024-01-10 20:45 | CTR_ITS ---
PROCEDURE INFORMATION: Exam: CT Head Without Contrast Exam date and time: 01/10/2024 8:57 PM Age: 38 years old Clinical indication: Injury or trauma; Fall; Blunt trauma (contusions or hematomas); Dizziness; Patient HX: Numbness in right hand and leg; Additional info: Falls/head inj TECHNIQUE: Imaging protocol: Computed tomography of the head without contrast. Radiation optimization: All CT scans at this facility use at least one of these dose optimization techniques: automated exposure control; mA and/or kV adjustment per patient size (includes targeted exams where dose is matched to clinical indication); or iterative reconstruction. COMPARISON: CR XR cervical spine 3V* [id number] 11/08/2017 10:09 AM RADIATION DOSE METRICS: Total DLP (mGy-cm): 1086 FINDINGS: Brain: 4.5 x 3.7 x 3.7 cm lobulated hyperdense dural-based extra-axial mass, centered in the left CP angle. This indents, displaces and obstructs the distal 4th ventricle. Vasogenic edema in the left cerebellar peduncles and possibly in the left jewell. Mild hypodensities in supratentorial periventricular white matter, possibly transependymal flow of CSF. No intracranial hemorrhage. Cerebral ventricles: Dilatation of the 3rd, 4th, and lateral ventricles. Paranasal sinuses: Visualized sinuses are unremarkable. No fluid levels. Mastoid air cells: Visualized mastoid air cells are well aerated. Bones: Unremarkable. No acute fracture. Soft tissues: Unremarkable. Vasculature: No hyperdense artery. CT/CT head wo con* [id number] IMPRESSION: 1. 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 2. Mass effect is obstructing the distal 4th ventricle, contributing to hydrocephalus. There is vasogenic edema in the adjacent cerebellar peduncles and possibly in the left jewell. 3. Hypodensities in supratentorial periventricular white matter is most likely transependymal flow of CSF. 4. Follow-up with brain MRI without and with IV gadolinium is recommended.
--- NOTE | 2024-01-10 20:48 | XRR_ITS ---
PROCEDURE INFORMATION: Exam: XR Chest Exam date and time: 01/10/2024 8:50 PM Age: 38 years old Clinical indication: Other: Dizzy; Additional info: Dizziness TECHNIQUE: Imaging protocol: Radiologic exam of the chest. Views: 1 view. COMPARISON: CR XR chest 1V portable [id number] 01/06/2024 10:18 AM FINDINGS: Lungs: Unremarkable. No consolidation. Pleural spaces: Unremarkable. No pleural effusion. No pneumothorax. Heart/Mediastinum: Unremarkable. No cardiomegaly. Bones/joints: Unremarkable. XR/XR chest 1V portable [id number] IMPRESSION: No acute findings.
[2024-01-10 20:53] LABS: Basophils # 0.1 10^3/uL (0.0-0.1); Basophils % 0.7 %; Eosinophils # 0.2 10^3/uL (0.0-0.8); Eosinophils % 1.9 %; Hematocrit 44.8 % (36-47); Lymphocytes # 2.5 10^3/uL (0.8-4.8); Lymphocytes % 24.7 %; Mean Corpuscular HGB Conc 31.9 g/dL (30-55); Mean Corpuscular Hemoglobin 26.5 pg (27-33); Mean Platelet Volume 10.1 fL (7.4-10.4); Monocytes # 0.6 10^3/uL (0.2-0.9); Monocytes % 5.4 %; Neutrophils # 6.85 10^3/uL (1.8-7.7); Neutrophils % 66.8 %; Nucleated Red Blood Cells % 0 %; Platelet Count 273 10^3/cmm (157-399); Red Cell Distribution Width 18.6 % (12.1-15.1); White Blood Count 10.24 10^3/uL (3.29-11.43)
[2024-01-10 21:04] LABS: Alanine Aminotransferase 17 U/L (0-33); Albumin Level 4.2 g/dL (3.5-5.2); Alkaline Phosphatase 91 U/L (35-105); Anion Gap 15.1 (5-19); Aspartate Amino Transferase 18 U/L (0-32); Blood Urea Nitrogen 9 mg/dL (6-20); Calcium 9.4 mg/dL (8.5-10.5); Carbon Dioxide 28 mmol/L (22-29); Chloride 98 mmol/L (98-107); Creatinine Clr Calc Pharmacy 172.3277; Globulin 3.3 g/dL (1.3-4.6); Glomerular Filtration Rate 137.4 mL/min (90-130); Glucose 108 mg/dL (65-115); HCG, Serum Qual Negative (Negative); Osmolality Calculated 285 mOsm/kg (285-295); Potassium 3.1 mmol/L (3.5-5.1); Sodium 138 mmol/L (136-145); Total Bilirubin 0.4 mg/dL (0.15-1.2); Total Protein 7.5 g/dL (6.6-8.7)
--- NOTE | 2024-01-10 21:21 | ED_ITS ---
HPI - Dizziness 2 General: Chief Complaint: Dizziness Stated Complaint: fall, dizziness, headache Time Seen by Provider: 01/10/24 20:25 Source: patient Mode of arrival: EMS Limitations: no limitations History of Present Illness: HPI Narrative: Patient is a 38-year-old female presenting to the emergency department complaining of multiple falls over the past week. She states that with 1 of these fall she hit her head, did not lose consciousness though she did require help to get up. Does not report any pertinent past medical history, but she does state that she gets dizzy prior to falling. She is noting an associated headache and blurred vision. Denies any recent imaging of the head. States she has never had this problem before. She denies any nausea, vomiting, chest pain, shortness of breath, abdominal pain, or other symptoms at this time. On initial examination there is no obvious focal neurological deficit. MD elicited complaint: dizziness (plus falls) Onset (ago): week(s) Associated symptoms: Reports headache(s); Denies chest pain, chills, nausea, palpitations or vomiting Associated neuro symptoms: Deny numbness in extremities Review of Systems 2 General: Reports: 10 or more systems reviewed and unremarkable except in HPI and below Const: Reports: other (falls); Denies: fever(s), chills or fatigue Eyes: Reports: blurry vision ENMT: Denies: throat pain, ear or mastoid pain or nasal discharge Card: Denies: chest pain, palpitations, swelling of feet/ankles or lightheadedness Resp: Denies: dyspnea, productive cough or wheezing GI: Denies: abdominal pain, nausea, vomiting, diarrhea or constipation : Denies: flank pain, difficulty voiding, dysuria or urinary frequency Musc: Denies: neck pain, back pain or joint pain Skin/Breast: Denies: rash Neuro: Reports: headache(s); Denies: numbness in extremities or weakness in extremities PFSH ED 2 PFSH: Medical History Nicotine dependence, other tobacco product, uncomplicated Vaping 6 mg Nicotine Chronic post-traumatic stress disorder Major depressive disorder, recurrent episode, moderate with anxious distress Panic disorder without agoraphobia Urolithiasis Surgical History Hx of hysterectomy Hx of cholecystectomy Family History Mother Diabetes CAD (coronary artery disease), Onset Age: 59 Brother CAD (coronary artery disease), Onset Age: 30 Social History Smoking and tobacco/nicotine status: current every day tobacco/nicotine user (vape) Alcohol intake: former Substance/Drug Use: former Adopted: No Caregiver/support person: No Lives independently: Yes Household members: significant other and children Housing: Manufactured/Mobile home Marital status: Single Number of children: 2 Number of grandchildren: 0 Highest education level completed: High School Graduate Current occupational status: disabled Current occupational exposures/hazards: No Pets and animals: Yes Pets & animals: cat(s) Leisure activites: art and other Leisure activities details: Watch TV Sexually active: Yes Do you think of yourself as: Straight/Heterosexual Current gender identity: Female Mary/Baptism: None Special mary needs: No Female Reproductive History: Para: 2 Physical Exam 2 Const: COMMON NORMALS: no acute distress, patient oriented x3 and no limitations GENERAL APPEARANCE: cooperative, comfortable and well developed NUTRITIONAL APPEARANCE: obese morbidly obese ORIENTATION/CONSCIOUSNESS: Yes awake, Yes oriented to person, Yes oriented to place and Yes oriented to time HENMT: COMMON NORMALS: normocephalic, atraumatic, hearing grossly normal bilaterally, moist oral mucous membranes and oropharynx normal HEAD & SCALP: normocephalic and atraumatic; no Macias's sign and no raccoon eyes Eye: COMMON NORMALS: Equal, round and reactive pupils present and conjunctivae normal GENERAL EYE: appearance normal, both eyes and all related structures CONJUNCTIVA: Yes conjunctivae normal PUPIL: Yes Equal, round and reactive pupils present EOM: Yes Nystagmus present Nystagmus Noted: positive horizontal Neck/C-Spine: COMMON NORMALS: full ROM, supple and no JVD Chest: COMMONS NORMALS: normal inspection of the chest Resp: COMMON NORMALS: normal respiratory effort, No retractions, No use of accessory muscles and clear to auscultation bilaterally AUSCULTATION: clear to auscultation bilaterally Cardio: COMMON NORMALS: no JVD, regular rate, regular rhythm, No clicks present (Cardio), No murmurs present (Cardio) and No rub (Cardio) RATE: r egular rate RHYTHM: regular rhythm GI: COMMON NORMALS: Normal to inspection, nondistended, normoactive bowel sounds present, Soft to palpation and non-tender AUSCULTATION: Yes normoactive bowel sounds PALPATION: Yes Soft to palpation RECTAL EXAM: d eferred Back/Pelvis: COMMON NORMALS: thoracic and lumbar spine normal to inspection, no thoracic nor lumbar tenderness and thoraco-lumbar ROM normal Extremity: COMMON NORMALS: normal to inspection, full ROM and capillary refill normal Neuro: COMMON NORMALS: patient oriented x3, moves all extremities, no focal motor deficits and no sensory deficits noted SENSORIUM/ORIENTATION: Yes oriented to person, Yes oriented to place and Yes oriented to time C OORDINATION/BALANCE: [id number] test normal and kksl-zy-eypn test normal SPEECH: speech normal MOTOR EXAM: 5/5 motor strength present throughout, Pronator motor function not present and no tremor noted COORDINATION: f [id number]-cz-[id number] test normal and riiw-qe-wocp test normal Psych: COMMON NORMALS: mental status grossly normal and Normal thought process present THOUGHT PROCESS: Normal thought process present Skin: COMMON NORMALS: no rashes or lesions noted GENERAL SKIN EXAM: no rashes or lesions noted Course 2 Vital Signs: Vital signs: Vital Signs Temperature 98.4 F 01/10/24 20:06 Pulse Rate 89 01/10/24 22:44 Respiratory Rate 16 01/10/24 22:44 Blood Pressure 141/84 01/10/24 22:44 Pulse Oximetry 96 01/10/24 22:44 Oxygen Delivery Me thod Room Air 01/10/24 22:44 MDM - Dizziness Medical Decision Making This patient brought in by ambulance for multiple falls over the past week. Most recent fall found patient hit her head, however she did not lose consciousness and there was no prolonged downtime. Patient did note preceding dizziness prior to the falls, and has been having some increased blurred vision. Her vitals on arrival ultimately were unremarkable. Physical exam also unremarkable aside from 1 neurological finding, some horizontal beating nystagmus with extraocular movement. Lab work obtained and compared to previous, these were all unremarkable. However, a CT of the head without contrast showed a large, 4.5 cm mass to the left cerebellar/pontine region that was obstructing upon the fourth ventricle and causing hydrocephalus. There is some associated findings of edema that warrants call to neurology here. Initially I spoke with Dr. Paige, who states that this needs transfer for neurosurgery. I did speak with neurosurgery at [facility] in [place], who states that this needs to be seen at a larger[facility]. Because of this I spoke with in [place], specifically a Dr. Armijo, neurosurgeon, who states he will see the patient after stat transfer. They do not have beds at this time, however patient will be transferred to the ER via ground ACLS. Dr. Armijo did recommend flight, however due to weather this is not an option at this time. I sat down with the patient and explained the plan for transfer and findings, she becomes anxious and she is given Ativan at this time. In addition Dr. Armijo recommended Decadron. All other questions and concerns were discussed with the patient, and this patient's case is discussed with Dr. Salamanca who agrees with disposition at this time. Lab Data 01/10/24 20:38 01/10/24 20:[address] 01/10/24 20:45 IMPRESSION: 1. 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 2. Mass effect is obstructing the distal 4th ventricle, contributing to hydrocephalus. There is vasogenic edema in the adjacent cerebellar peduncles and possibly in the left jewell. 3. Hypodensities in supratentorial periventricular white matter is most likely transependymal flow of CSF. 4. Follow-up with brain MRI without and with IV gadolinium is recommended. ADDENDUM: 01/10/248 THIS REPORT CONTAINS FINDINGS THAT MAY BE CRITICAL TO PATIENT CARE. The findings were verbally communicated via telephone conference with YANICK GUTIERREZ at 9:36 PM CDT on 01/10/2024. The findings were acknowledged and understood. Chest X-Ray 01/10/24 20:48 IMPRESSION: No acute findings. Laboratory Results WBC 10.24 10^3/uL (3.29-11.43) 01/10/24 20:38 RBC 5.40 10^6/uL (3.85-5.65) 01/10/24 20:38 Hgb 14.30 g/dL (11.27-16.99) 01/10/24 20:38 Hct 44.8 % (36-47) 01/10/24 20:38 MCV 83.0 fl (85-98) L 01/10/24 20:38 MCH 26.5 pg (27-33) L 01/10/24 20:38 MCHC 31.9 g/dL (30-55) 01/10/24 20:38 RDW 18.6 % (12.1-15.1) H 01/10/24 20:38 Plt Count 273 10^3/cmm (157-399) 01/10/24 20:38 MPV 10.1 fL (7.4-10.4) 01/10/24 20:38 Neut % (Auto) 66.8 % 01/10/24 20:38 Lymph % (Auto) 24.7 % 01/10/24 20:38 Garden % (Auto) 5.4 % 01/10/24 20:38 Eos % (Auto) 1.9 % 01/10/24 20:38 Baso % (Auto) 0.7 % 01/10/24 20:38 Neut # (Auto) 6.85 10^3/uL (1.8-7.7) 01/10/24 20:38 Lymph # (Auto) 2.5 10^3/uL (0.8-4.8) 01/10/24 20:38 Garden # (Auto) 0.6 10^3/uL (0.2-0.9) 01/10/24 20:38 Eos # (Auto) 0.2 10^3/uL (0.0-0.8) 01/10/24 20:38 Baso # (Auto) 0.1 10^3/uL (0.0-0.1) 01/10/24 20:38 Nucleated RBC % (auto) 0 % 01/10/24 20:38 Nucleated RBCs # 0.0 /100WBC 01/10/24 20:38 Sodium 138 mmol/L (136-145) 01/10/24 20:38 Potassium 3.1 mmol/L (3.5-5.1) L 01/10/24 20:38 Chloride 98 mmol/L (98-107) 01/10/24 20:38 Carbon Dioxide 28 mmol/L (22-29) 01/10/24 20:38 Anion Gap 15.1 (5-19) 01/10/24 20:38 BUN 9 mg/dL (6-20) 01/10/24 20:38 Creatinine 0.5 mg/dL (0.5-0.9) 01/10/24 20:38 GFR Calculation 137.4 mL/min (90-130) H 01/10/24 20:38 Glucose 108 mg/dL (65-115) 01/10/24 20:38 Calculated Osmolality 285 mOsm/kg (285-295) 01/10/24 20:38 Calcium 9.4 mg/dL (8.5-10.5) 01/10/24 20:38 Total Bilirubin 0.4 mg/dL (0.15-1.2) 01/10/24 20:38 AST 18 U/L (0-32) 01/10/24 20:38 ALT 17 U/L (0-33) 01/10/24 20:38 Alkaline Phosphatase 91 U/L (35-105) 01/10/24 20:38 Total Protein 7.5 g/dL (6.6-8.7) 01/10/24 20:38 Albumin 4.2 g/dL (3.5-5.2) 01/10/24 20:38 Globulin 3.3 g/dL (1.3-4.6) 01/10/24 20:38 HCG, Qual Negative (Negative) 01/10/24 20:38 All radiology interpretation(s) finalized by discharge Discharge Plan Discharge Patient Disposition: Transfer to ED Clinical Impression: Brain mass, Hydrocephalus Condition: Stable Prescriptions: No Action acetaminophen [Tylenol Arthritis Pain] 650 mg tablet extended release 1,300 mg PO Q8H PRN (Reason: pain) (DME) HINGED KNEE BRACE See Rx Instructions .Route .MEDSUPPLY Qty: 1 0RF Rx Instructions: As directed fenofibrate 54 mg tablet 54 mg PO DAILY 90 Days Qty: 90 3RF gabapentin 300 mg capsule 300 mg PO TID 90 Days Qty: 270 2RF propranolol 20 mg tablet 20 mg PO BID 90 Days Qty: 180 2RF diclofenac sodium 75 mg tablet,delayed release (DR/EC) 75 mg PO BID PRN (Reason: pain) 30 Days Qty: 60 6RF levothyroxine 137 mcg tablet 137 mcg PO DAILY 90 Days Qty: 90 0RF Rx Instructions: dose increase hydroxyzine pamoate 50 mg capsule 50 mg PO BID PRN (Reason: Anxiety) diphenhydramine HCl [Benadryl] 25 mg Capsule 25 mg PO TID PRN (Reason: ALLERGIES) ibuprofen 200 mg Tablet 1,000 mg PO Q6H PRN (Reason: Pain) amitriptyline 25 mg tablet 25 mg PO BEDTIME PRN (Reason: Sleep) pantoprazole 40 mg tablet,delayed release (DR/EC) 40 mg PO BEDTIME cyclobenzaprine 5 mg tablet 5 - 10 mg PO BEDTIME PRN (Reason: muscle spasm) fluoxetine 60 mg tablet 60 mg PO DAILY Referrals: Jasper Wiley MD [Primary Care Provider] - Coding Level of Care Code ED Sandblast Or Shotblast Equipment Tender for Michelle German
--- NOTE | 2024-01-10 21:33 | ECG_ITS ---
[facility] Test Date: 2024-01-10 Pat Name: Magalie Dobbs Department: Room: Gender: Female Teacher Drama: : 1985 Requested By: Elier Payan Order Number: [id number] Estrella MD: Dalila Cordoba M.D. Measurements Intervals [place] Rate: 93 P: 38 WA: 155 QRS: -17 QRSD: 104 T: 25 QT: 394 QTc: 491 Interpretive Statements SINUS RHYTHM INDETERMINATE AXIS PATTERN CONSISTENT WITH PULMONARY DISEASE Compared to ECG 01/06/2024 12:58:21 Indeterminate axis now present Short WA interval no longer present Electronically Signed On 01-10-2024 21:41:18 CDT by Dalila Cordoba M.D. [id number]
[2024-01-10 21:37] VITALS: BP 136/84; PULSE 107; RESP 16; O2SAT 95
[2024-01-10] MEDS: potassium chloride ER 20 mEq Tablet 40 MEQ PO (21:37)
[2024-01-10] MEDS: dexamethasone 10 mg/mL INJ IVP (22:38)
[2024-01-10] MEDS: LORazepam 2 mg/mL INJ 1 mL 1 MG IVP (22:39)
[2024-01-10 22:44] VITALS: BP 141/84; PULSE 89; RESP 16; O2SAT 96
[2024-01-10 23:00] VITALS: BP 111/84; PULSE 102; RESP 16; O2SAT 95
[2024-01-10 23:35] VITALS: BP 111/84; PULSE 102; RESP 16; TEMP 36.9; O2SAT 95
--- NOTE | 2024-01-12 13:31 | ECG_ITS ---
[facility] Test Date: 2024-01-10 Pat Name: Magalie Dobbs Department: Room: Gender: Female Head Bookkeeper: : 1985 Requested By: Elier Payan Order Number: [id number] De La Rosa MD: Dalila Cordoba M.D. Measurements Intervals [place] Rate: 91 P: 56 MS: 142 QRS: 140 QRSD: 108 T: 51 QT: 400 QTc: 493 Interpretive Statements SINUS RHYTHM PATTERN CONSISTENT WITH PULMONARY DISEASE POSSIBLE RIGHT VENTRICULAR HYPERTROPHY [SOME/ALL OF: PROMINENT R IN V1, LATE TRANSITION, RAD, CHELSY, SSS] Compared to ECG 01/06/2024 12:58:21 Atrial abnormality now present Short MS interval no longer present Electronically Signed On 01-12-2024 22:24:34 CDT by Dalila Cordoba M.D. [id number]
== END 2024-01-10 23:37 ==
PROVIDERS: Emergency Provider Physician Assistant; PCP Family Medicine
DX: G91.9 Hydrocephalus, unspecified (principal); G93.9 Disorder of brain, unspecified; F17.290 Nicotine dependence, other tobacco product, uncomplicated
CPT/HCPCS: 70450; 71045; 80053; 84703; 85025; 93005; 96374; 96375; 99285; J1100; J2060

== ENCOUNTER 2024-05-14 13:05 | Emergency (ER) | payer MEDICARE, MEDICAID, SELFPAY ==
[2021-08-10 11:47] VITALS: BP 112/81; BMI 44.3
[2024-05-14 13:15] VITALS: BP 95/62; PULSE 93; RESP 14; TEMP 36.7; O2SAT 92; BMI 34.5
--- NOTE | 2024-05-14 13:21 | CT_ITS ---
WS: [id number] CT HEAD TECHNIQUE: Noncontrast CT of the head obtained from the skullbase to the vertex. CLINICAL INFORMATION: AMS COMPARISON: 01/10/2024 DLP: 1129.[address] scans at [facility] use at least one of these dose optimization techniques: automated e xposure control; mA and/or kV adjustment per patient size (includes targeted exams where dose is matc hed to clinical indication); or iterative reconstruction. FINDINGS: No evidence of intracranial hemorrhage or mass effect. Ventricular system and basal cisterns are dawson nt. Interval postoperative changes resection of the large LEFT cerebellar pontine angle meningioma. P reviously described hydrocephalus has resolved. Mass effect on the fourth ventricle has resolved. LEF T retromastoid craniotomy with encephalomalacia in the LEFT middle cerebellar peduncle and brachium p ontis. Craniotomy extends to the posterior mastoid. Normal postoperative changes. No evidence of incr easing edema or mass effect. No hemorrhage. Paranasal sinuses and mastoid air cells are well aerated. Prior RIGHT parietal ventriculostomy tract. CT/CT head wo con* [id number] IMPRESSION: 1. No evidence of intracranial hemorrhage or mass effect. 2. Interval postoperative changes resection of the large LEFT CP angle meningi talha. 3. LEFT retromastoid craniotomy with encephalomalacia in the LEFT cerebellum a nd cerebellar peduncle compatible with normal postoperative changes. 4. Mass effect on the fourth ventricle has resolved. No hydrocephalus today. 5. No other acute findings. Notified Kevin Grant DO at 05/14/2024 1:54 PM.
--- NOTE | 2024-05-14 14:03 | ED_ITS ---
HPI - General Adult 2 General: Chief complaint: General Medical Stated complaint: angio edema Time Seen by Provider: 05/14/24 13:06 History of Present Illness: 38-year-old female presents emergency ro om facial swelling and angioedema. We have seen her here in December and she was transferred out had surgery had a very long hospital course was then out with a few complications including pneumonia and a meningitis. The boyfriend is with her brought her in because she had complained of increased numbness on her right side. He also thought her face was drooping more. The patient is pretty adamant that she is fine that all of the symptoms were present since surgery is difficult or to get her to even give us a last known well she keeps going back to these symptoms have been here since surgery. She is actually able to write using her right hand writes very legibly understands very clearly what is going on and is able to write out answers to all of her questions. She can speak a little bit when she plugs her tracheostomy but has difficulty still relies mostly on handwriting. Related Data Home Medications Medication Instructions Recorded Confirmed acetaminophen 650 mg 1,300 mg PO Q8H PRN pain 01/26/21 01/06/24 tablet,extended release (Tylenol Arthritis Pain) amitriptyline 25 mg tablet 25 mg PO BEDTIME PRN Sleep 12/27/23 01/06/24 cyclobenzaprine 5 mg tablet 5 - 10 mg PO BEDTIME PRN muscle 12/27/23 01/06/24 spasm diphenhydramine HCl 25 mg capsule 25 mg PO TID PRN ALLERGIES 12/27/23 01/06/24 (Benadryl) hydroxyzine pamoate 50 mg capsule 50 mg PO BID PRN Anxiety 12/27/23 01/06/24 ibuprofen 200 mg tablet 1,000 mg PO Q6H PRN Pain 12/27/23 01/06/24 pantoprazole 40 mg tablet,delayed 40 mg PO BEDTIME 12/27/23 01/06/24 release fluoxetine 60 mg tablet 60 mg PO DAILY 01/06/24 01/06/24 Previous Rx's Medication Instructions Recorded HINGED KNEE BRACE #1 ea 03/09/23 diclofenac sodium 75 mg 75 mg PO BID PRN pain 30 days #60 10/04/23 tablet,delayed release tabs fenofibrate 54 mg tablet 54 mg PO DAILY 90 days #90 tabs 04/09/24 gabapentin 300 mg capsule 300 mg PO TID 90 days #270 caps 10/04/23 propranolol 20 mg tablet 20 mg PO BID 90 days #180 tabs 10/04/23 levothyroxine 137 mcg tablet 137 mcg PO DAILY 90 days #90 tabs 11/19/23 Allergies Allergy/AdvReac Type Severity Reaction Status Date / Time Influenza Virus Vaccines AdvReac Intermediate ADR-Muscle Verified 01/10/24 20:14 Pain PFSH ED 2 PFSH: Medical History Nicotine dependence, other tobacco product, uncomplicated Vaping 6 mg Nicotine Chronic post-traumatic stress disorder Major depressive disorder, recurrent episode, moderate with anxious distress Panic disorder without agoraphobia Urolithiasis Surgical History Hx of hysterectomy Hx of cholecystectomy Family History Mother Diabetes CAD (coronary artery disease), Onset Age: 59 Brother CAD (coronary artery disease), Onset Age: 30 Social History Smoking and tobacco/nicotine status: current every day tobacco/nicotine user (vape) Alcohol intake: former Substance/Drug Use: former Adopted: No Caregiver/support person: No Lives independently: Yes Household members: significant other and children Housing: Manufactured/Mobile home Marital status: Single Number of children: 2 Number of grandchildren: 0 Highest education level completed: High School Graduate Current occupational status: disabled Current occupational exposures/hazards: No Pets and animals: Yes Pets & animals: cat(s) Leisure activites: art and other Leisure activities details: Watch TV Sexually active: Yes Do you think of yourself as: Straight/Heterosexual Current gender identity: Female Mary/Scientologist: None Special mary needs: No Female Reproductive History: Para: 2 Physical Exam 2 Const: COMMON NORMALS: no acute distress GENERAL APPEARANCE: cooperative and comfortable ORIENTATION/CONSCIOUSNESS: Yes awake, Yes oriented to person, Yes oriented to place and Yes oriented to time HENMT: COMMON NORMALS: atraumatic and hearing grossly normal bilaterally H EAD & SCALP: atraumatic Resp: COMMON NORMALS: normal respiratory effort, No retractions, No use of accessory muscles and clear to auscultation bilaterally AUSCULTATION: clear to auscultation bilaterally Cardio: COMMON NORMALS: regular rate, regular rhythm and No murmurs present (Cardio) RATE: regular rate RHYTHM: regular rhythm GI: COMMON NORMALS: Soft to palpation and No hepatosplenomegaly present A USCULTATION: Yes normoactive bowel sounds PALPATION: Yes Soft to palpation, No Tenderness to palpation present (GI), No Guarding due to palpation present (GI) and Yes No hepatosplenomegaly present Extremity: COMMON NORMALS: normal to inspection, capillary refill normal, no clubbing, cyanosis or edema, no calf tenderness and no pedal edema Neuro: SENSORIUM/ORIENTATION: Yes oriented to person, Yes oriented to place and Yes oriented to time OTHER: Patient has significant swelling of her face particular lower lip however she is able to write without any difficulty she has very good dexterity she is awake and alert her vision is good. She is able to speak a little bit if she plugs the remnant of hole of her tracheostomy. There is some facial asymmetry but she states that is all from her previous surgery Skin: COMMON NORMALS: no rashes or lesions noted GENERAL SKIN EXAM: no rashes or lesions noted Course 2 Vital Signs: Vital signs: Vital Signs Temperature 98.1 F 05/14/24 13:15 Pulse Rate 93 05/14/24 15:30 Respiratory Rate 14 05/14/24 13:15 Blood Pressure 113/67 05/14/24 15:30 Pulse Oximetry 92 05/14/24 15:30 Oxygen Delivery Me thod Room Air 05/14/24 14:18 MDM - General Adult Medical Decision Making Patient is insistent that there is no new findings. CT of her head showed changes of surgery but no acute findings no acute bleed. Patient is anxious to go home reviewed laboratory test no significant findings will discharge her home have her follow-up with her neurology team in [place]. Return if she has further problems Medical Records I reviewed the patient's medical records. Lab Data I reviewed the patient's lab results. 05/14/24 15:07 05/14/24 15:[address] 05/14/24 13:21 IMPRESSION: 1. No evidence of intracranial hemorrhage or mass effect. 2. Interval postoperative changes resection of the large LEFT CP angle meningioma. 3. LEFT retromastoid craniotomy with encephalomalacia in the LEFT cerebellum and cerebellar peduncle compatible with normal postoperative changes. 4. Mass effect on the fourth ventricle has resolved. No hydrocephalus today. 5. No other acute findings. Notified Kevin Grant DO at 05/14/2024 1:54 PM. Laboratory Results WBC 6.41 10^3/uL (3.29-11.43) 05/14/24 15:07 RBC 4.35 10^6/uL (3.85-5.65) 05/14/24 15:07 Hgb 11.10 g/dL (11.27-16.99) L 05/14/24 15:07 Hct 37.1 % (36-47) 05/14/24 15:07 MCV 85.3 fl (85-98) 05/14/24 15:07 MCH 25.5 pg (27-33) L 05/14/24 15:07 MCHC 29.9 g/dL (30-55) L 05/14/24 15:07 RDW 15.7 % (12.1-15.1) H 05/14/24 15:07 Plt Count 270 10^3/cmm (157-399) 05/14/24 15:07 MPV 11.5 fL (7.4-10.4) H 05/14/24 15:07 Neut % (Auto) 61.6 % 05/14/24 15:07 Lymph % (Auto) 26.8 % 05/14/24 15:07 [place] % (Auto) 8.0 % 05/14/24 15:07 Eos % (Auto) 2.5 % 05/14/24 15:07 Baso % (Auto) 0.9 % 05/14/24 15:07 Neut # (Auto) 3.95 10^3/uL (1.8-7.7) 05/14/24 15:07 Lymph # (Auto) 1.7 10^3/uL (0.8-4.8) 05/14/24 15:07 [place] # (Auto) 0.5 10^3/uL (0.2-0.9) 05/14/24 15:07 Eos # (Auto) 0.2 10^3/uL (0.0-0.8) 05/14/24 15:07 Baso # (Auto) 0.1 10^3/uL (0.0-0.1) 05/14/24 15:07 Nucleated RBC % (auto) 0 % 05/14/24 15:07 Nucleated RBCs # 0.0 /100WBC 05/14/24 15:07 Sodium 140 mmol/L (136-145) 05/14/24 15:07 Potassium 3.7 mmol/L (3.5-5.1) 05/14/24 15:07 Chloride 102 mmol/L (98-107) 05/14/24 15:07 Carbon Dioxide 28 mmol/L (22-29) 05/14/24 15:07 Anion Gap 13.7 (5-19) 05/14/24 15:07 BUN 7 mg/dL (6-20) 05/14/24 15:07 Creatinine 0.4 mg/dL (0.5-0.9) L 05/14/24 15:07 GFR Calculation 177.7 mL/min (90-130) H 05/14/24 15:07 Glucose 86 mg/dL (65-115) 05/14/24 15:07 Calculated Osmolality 287 mOsm/kg (285-295) 05/14/24 15:07 Calcium 8.7 mg/dL (8.5-10.5) 05/14/24 15:07 Total Bilirubin 0.2 mg/dL (0.15-1.2) 05/14/24 15:07 AST 23 U/L (0-32) 05/14/24 15:07 ALT 27 U/L (0-33) 05/14/24 15:07 Alkaline Phosphatase 107 U/L (35-105) H 05/14/24 15:07 Total Protein 6.7 g/dL (6.6-8.7) 05/14/24 15:07 Albumin 3.8 g/dL (3.5-5.2) 05/14/24 15:07 Globulin 2.9 g/dL (1.3-4.6) 05/14/24 15:07 All radiology interpretation(s) finalized by discharge Discharge Plan Discharge Patient Disposition: Home Clinical Impression: Weakness, S/P craniotomy Condition: Stable Prescriptions: No Action acetaminophen [Tylenol Arthritis Pain] 650 mg tablet extended release 1,300 mg PO Q8H PRN (Reason: pain) (DME) HINGED KNEE BRACE See Rx Instructions .Route .MEDSUPPLY Qty: 1 0RF Rx Instructions: As directed fenofibrate 54 mg tablet 54 mg PO DAILY 90 Days Qty: 90 3RF gabapentin 300 mg capsule 300 mg PO TID 90 Days Qty: 270 2RF propranolol 20 mg tablet 20 mg PO BID 90 Days Qty: 180 2RF diclofenac sodium 75 mg tablet,delayed release (DR/EC) 75 mg PO BID PRN (Reason: pain) 30 Days Qty: 60 6RF levothyroxine 137 mcg tablet 137 mcg PO DAILY 90 Days Qty: 90 0RF Rx Instructions: dose increase hydroxyzine pamoate 50 mg capsule 50 mg PO BID PRN (Reason: Anxiety) diphenhydramine HCl [Benadryl] 25 mg Capsule 25 mg PO TID PRN (Reason: ALLERGIES) ibuprofen 200 mg Tablet 1,000 mg PO Q6H PRN (Reason: Pain) amitriptyline 25 mg tablet 25 mg PO BEDTIME PRN (Reason: Sleep) pantoprazole 40 mg tablet,delayed release (DR/EC) 40 mg PO BEDTIME cyclobenzaprine 5 mg tablet 5 - 10 mg PO BEDTIME PRN (Reason: muscle spasm) fluoxetine 60 mg tablet 60 mg PO DAILY Discharge Orders: Discharge ED (Routine); Ordered 05/14/24 Ordered By: Kevin Grant Discharge Diet: Usual diet Discharge Activity: Increase activity as tolerated Patient Instructions: Opioid Safety, Pain Management Activity Restrictions/Additional Instructions: Thank you for choosing [facility] for your healthcare needs today. It is very important that you follow up as instructed or that you return to the Emergency Department should you have concerns or if your condition changes or worsens in any way. You are seen in the emergency room with complaint of weakness. After discussion you reported that these symptoms are on the most part unchanged from when you first had your brain surgery several months ago. CT did not show anything new or acute laboratory tests are unremarkable follow-up with your neurosurgery team as previously scheduled Coding Level of Care Code ED Science Analyst for Michelle German
[2024-05-14 14:18] VITALS: BP 100/62; PULSE 97; O2SAT 99
--- NOTE | 2024-05-14 14:59 | ECG_ITS ---
[facility] Test Date: 2024-05-14 Pat Name: Magalie Dobbs Department: Room: Gender: Female Package Center Supervisor: : 1985 Requested By: Kevin Solano Order Number: [id number] Estrella MD: Dalila Cordoba M.D. Measurements Intervals [place] Rate: 90 P: 33 NH: 144 QRS: 20 QRSD: 98 T: 14 QT: 377 QTc: 463 Interpretive Statements SINUS RHYTHM Compared to ECG 01/10/2024 21:33:07 Indeterminate axis no longer present Electronically Signed On 05-14-2024 19:20:01 ON SITE SOIL EVALUATOR by Dalila Cordoba M.D. [id number]
[2024-05-14 15:14] LABS: Basophils # 0.1 10^3/uL (0.0-0.1); Basophils % 0.9 %; Eosinophils # 0.2 10^3/uL (0.0-0.8); Eosinophils % 2.5 %; Hematocrit 37.1 % (36-47); Lymphocytes # 1.7 10^3/uL (0.8-4.8); Lymphocytes % 26.8 %; Mean Corpuscular HGB Conc 29.9 g/dL (30-55); Mean Corpuscular Hemoglobin 25.5 pg (27-33); Mean Corpuscular Volume 85.3 fl (85-98); Mean Platelet Volume 11.5 fL (7.4-10.4); Monocytes # 0.5 10^3/uL (0.2-0.9); Neutrophils # 3.95 10^3/uL (1.8-7.7); Neutrophils % 61.6 %; Nucleated Red Blood Cells % 0 %; Platelet Count 270 10^3/cmm (157-399); Red Blood Count 4.35 10^6/uL (3.85-5.65); Red Cell Distribution Width 15.7 % (12.1-15.1); White Blood Count 6.41 10^3/uL (3.29-11.43)
[2024-05-14 15:30] VITALS: BP 113/67; PULSE 93; O2SAT 92
[2024-05-14 15:31] LABS: Alanine Aminotransferase 27 U/L (0-33); Albumin Level 3.8 g/dL (3.5-5.2); Alkaline Phosphatase 107 U/L (35-105); Anion Gap 13.7 (5-19); Aspartate Amino Transferase 23 U/L (0-32); Blood Urea Nitrogen 7 mg/dL (6-20); Calcium 8.7 mg/dL (8.5-10.5); Carbon Dioxide 28 mmol/L (22-29); Chloride 102 mmol/L (98-107); Globulin 2.9 g/dL (1.3-4.6); Glomerular Filtration Rate 177.7 mL/min (90-130); Glucose 86 mg/dL (65-115); Osmolality Calculated 287 mOsm/kg (285-295); Potassium 3.7 mmol/L (3.5-5.1); Sodium 140 mmol/L (136-145); Total Bilirubin 0.2 mg/dL (0.15-1.2); Total Protein 6.7 g/dL (6.6-8.7)
[2024-05-14 15:35] LABS: Creatinine Clr Calc Pharmacy 199.1851
== END 2024-05-14 16:33 | disposition home or self-care (01) ==
PROVIDERS: Emergency Provider Family Medicine
DX: R53.1 Weakness (principal); Z98.890 Other specified postprocedural states; F17.290 Nicotine dependence, other tobacco product, uncomplicated
CPT/HCPCS: 36415; 70450; 80053; 85025; 93005; 99284

== ENCOUNTER 2024-05-20 01:26 | Inpatient (IN) | payer MEDICARE, MEDICAID, SELFPAY ==
[2021-08-10 11:47] VITALS: BP 112/81; BMI 44.3
[2024-05-20 01:28] VITALS: BP 137/87; PULSE 104; RESP 18; O2SAT 96; BMI 33.7
--- NOTE | 2024-05-20 01:51 | CTR_ITS ---
PROCEDURE INFORMATION: Exam: CT Head Without Contrast Exam date and time: 05/20/2024 2:52 AM Age: 38 years old Clinical indication: Pain; Headache; Prior surgery; Surgery date: 6+ months; Surgery type: Craniectomy with mesh for resection of tumor. Patient HX: C/O JACINTO. TECHNIQUE: Imaging protocol: Computed tomography of the head without contrast. Radiation optimization: All CT scans at this facility use at least one of these dose optimization techniques: automated exposure control; mA and/or kV adjustment per patient size (includes targeted exams where dose is matched to clinical indication); or iterative reconstruction. COMPARISON: CT head wo con* [id number] 05/14/2024 1:36 PM RADIATION DOSE METRICS: Total DLP (mGy-cm): 1032.31 FINDINGS: Brain: No acute intracranial hemorrhage, mass effect or midline shift. Grossly unchanged encephalomalacia at the left cerebellum. Cerebral ventricles: Stable size and configuration of the ventricles. Paranasal sinuses: Visualized sinuses are unremarkable. No fluid levels. Mastoid air cells: Visualized mastoid air cells are well aerated. Bones: Craniotomy changes at the left occipital bone. No acute calvarial findings. Soft tissues: Unremarkable. CT/CT head wo con* [id number] IMPRESSION: No acute intracranial findings.
--- NOTE | 2024-05-20 01:51 | ECG_ITS ---
[facility] Test Date: 2024-05-20 Pat Name: aMgalie Dobbs Department: Room: Gender: Female Claims Agent Right Of Way: : 1985 Requested By: Domenica Salamanca Order Number: [id number] Estrella MD: OLMAN AG Measurements Intervals [place] Rate: 98 P: 41 NM: 150 QRS: 57 QRSD: 102 T: 23 QT: 361 QTc: 462 Interpretive Statements SINUS RHYTHM Compared to ECG 05/14/2024 14:59:25 No significant changes Electronically Signed On 05-21-2024 19:26:24 TECHNOLOGY SALES SPECIALIST by OLMAN AG [email or web address] specialty hospital of greenvilleLa Mans Marine [email or web address] memorial [id number]
[2024-05-20 02:20] LABS: Bilirubin Urine Negative (Negative); Blood Urine Negative (Negative); Glucose Urine UA Negative (Normal); Ketones Urine Negative (Negative); Leukocyte Esterase Urine 3+ (Negative); Nitrate Urine Negative (Negative); Protein Urine Negative (Negative); Specific Gravity, Urine 1.012 (1.005-1.030); Urine Appearance Clear (CLEAR); Urine Color Yellow (Yellow); pH Urine 6.5 (5-7)
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
[2024-05-20 02:22] LABS: Basophils # 0.1 10^3/uL (0.0-0.1); Basophils % 0.7 %; Eosinophils # 0.1 10^3/uL (0.0-0.8); Eosinophils % 1.9 %; Hematocrit 42.3 % (36-47); Lymphocytes % 28.2 %; Mean Corpuscular HGB Conc 30.3 g/dL (30-55); Mean Corpuscular Volume 85.8 fl (85-98); Mean Platelet Volume 10.3 fL (7.4-10.4); Monocytes # 0.6 10^3/uL (0.2-0.9); Monocytes % 7.9 %; Neutrophils # 4.27 10^3/uL (1.8-7.7); Nucleated Red Blood Cells % 0 %; Platelet Count 242 10^3/cmm (157-399); Red Blood Count 4.93 10^6/uL (3.85-5.65); Red Cell Distribution Width 15.2 % (12.1-15.1); White Blood Count 6.99 10^3/uL (3.29-11.43)
[2024-05-20 02:25] LABS: Add Urine Microscopic? YES; Bacteria Urine None Seen /hpf; RBC Urine 0-2 /hpf (0-2); Squamous Epithelial Cell Urine 0-5 /hpf (0-5); WBC Urine 21-50 /hpf (0-5)
[2024-05-20 02:27] LABS: Add Urine Culture? Yes; HCG Qualitative Urine. Negative (Negative)
[2024-05-20 02:28] LABS: Amphetamines Screen Urine Negative (Negative); Barbiturates Screen Urine Negative (Negative); Benzodiazepines Screen Urine Positive (Negative); Cocaine Screen Urine Negative (Negative); Opiate Screen Urine Negative (Negative); PCP Screen Urine Negative (Negative); THC Screen Urine Negative (Negative)
[2024-05-20 02:56] LABS: Covid PCR NEGATIVE (Negative); Influenza A NEGATIVE (Negative); Influenza B NEGATIVE (Negative); Respiratory Syncytial Virus Ce NEGATIVE (Negative)
[2024-05-20 02:57] LABS: Alanine Aminotransferase 15 U/L (0-33); Albumin Level 4.1 g/dL (3.5-5.2); Alkaline Phosphatase 127 U/L (35-105); Anion Gap 16.6 (5-19); Aspartate Amino Transferase 16 U/L (0-32); Blood Urea Nitrogen 6 mg/dL (6-20); Calcium 9.8 mg/dL (8.5-10.5); Carbon Dioxide 25 mmol/L (22-29); Chloride 103 mmol/L (98-107); Creatinine Clr Calc Pharmacy 163.5042; Globulin 3.3 g/dL (1.3-4.6); Glomerular Filtration Rate 137.4 mL/min (90-130); Glucose 88 mg/dL (65-115); Osmolality Calculated 289 mOsm/kg (285-295); Potassium 3.6 mmol/L (3.5-5.1); Salicylate 0.5 mg/dL (3-10); Sodium 141 mmol/L (136-145); Thyroid Stimulating Hormone 0.93 uIU/mL (0.27-4.20); Total Bilirubin 0.2 mg/dL (0.15-1.2); Total Protein 7.4 g/dL (6.6-8.7)
[2024-05-20 03:01] LABS: Acetaminophen < 5.0 ug/mL (10-30); Alcohol Level < 10 mg/dL (0-10)
--- NOTE | 2024-05-20 03:14 | PC.NURSE ---
96 Hour Involuntary Patient Hold Rights have been read to the patient and a copy of the same has been given to her. Sales Hunter Harshil Sibley was present at the bedside at the time of presentation of Rights.
[2024-05-20 03:56] VITALS: BP 135/72; PULSE 96; RESP 20; O2SAT 93
[2024-05-20 04:10] VITALS: BP 149/83; PULSE 103; RESP 18; TEMP 36.6; O2SAT 98
[2024-05-20 05:20] VITALS: BP 149/83; PULSE 103; RESP 18; TEMP 36.6; O2SAT 98
[2024-05-20] MEDS: acetaminophen 325 mg Tablet 650 MG PO (06:05)
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
[2024-05-20] MEDS: fluoxetine 20 mg Capsule 40 MG PEG-TUBE (11:57)
[2024-05-20] MEDS: levothyroxine 137 mcg Tablet PEG-TUBE (11:57)
[2024-05-20] MEDS: gabapentin 400 mg Capsule PEG-TUBE ×3 (11:58→20:11)
[2024-05-20 14:00] VITALS: BP 107/55; PULSE 99; RESP 16; TEMP 37; O2SAT 92
[2024-05-20] MEDS: acetaminophen 325 mg Tablet 650 MG PEG-TUBE ×2 (16:07→20:11)
[2024-05-20 20:06] VITALS: BP 95/57; PULSE 98; RESP 16; TEMP 36.9; O2SAT 93
[2024-05-21 06:00] VITALS: BP 129/78; PULSE 110; RESP 18; TEMP 36.7; O2SAT 98
[2024-05-21] MEDS: acetaminophen 325 mg Tablet 650 MG PEG-TUBE ×3 (07:37→17:22)
--- NOTE | 2024-05-21 08:58 | PC.NUTR ---
Received consult for PEG tube feeding recommendations. Since Pt has had breakfast, recommend PEG tube feeds of Jevity 1.5, 360mls, at 1pm and 6pm, w/flushes of 60mls before and after feeds. After [facility] evaluation, will make further recommendations if Magalie can continue with PO intake.
[2024-05-21] MEDS: levothyroxine 137 mcg Tablet PEG-TUBE (09:25)
[2024-05-21] MEDS: fluoxetine 20 mg Capsule 40 MG PEG-TUBE (09:25)
[2024-05-21] MEDS: gabapentin 400 mg Capsule PEG-TUBE ×3 (09:25→20:09)
--- NOTE | 2024-05-21 10:39 | FL_ITS ---
WS: [id number] Modified barium swallow, 05/21/2024 Clinical Data: Oral dysphagia Comparison: None. 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 The oral bolus was decreased and t here is significant oral residue. There is also residue in the vallecula. There was penetration with numerous substances. There is minimal aspiration with liquids. The hypopharynx showed markedly reduce d peristalsis. The silver cracker and barium tablet were not ingested because of the patient's diffic ulty in swallowing. FL/FL barium swallow modifd [id number] Impression: 1. 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 2. Poor oral bolus progression with significant oral residue. 3. Significant hypopharyngeal weakness with residue in the vallecula and poor p rogression of material into the esophagus. 4. Penetration with numerous substances and aspiration with liquids.
--- NOTE | 2024-05-21 13:42 | P.NPUPN_ITS ---
Subjective NPU 2 Subjective: 38-year-old female admitted with alleged ly suicidal ideation with a history of major depressive disorder, PTSD, and panic disorder. The patient was compliant and cooperative on the milieu. She had written her response to all of her answers as she had a recent craniotomy to remove a brain mass and had apparently suffered from impairment in her left laryngeal nerve leading to some focal paralysis and difficulties with swallowing. The patient continued to have a PEG tube and reported good appetite. She had received some pur?ed foods orally and additional oral intake through feedings through PEG tube. Patient had reported that she had not spoken to boyfriend but reported that she missed her kids. Patient had reported that she was feeling less angry. She had stated that she did not feel depressed at this time. She had reported adequate sleep. Mental Status Exam 2 MSE Comments: Patient required the use of a walker. Her gait was unsteady. Her hygiene was fair. There was no evidence of any abnormal involuntary motor movements, tics, or tremors appreciated. Her speech showed evidence of significant dysarthria and she was unable to communicate verbally. There was evidence of facial asymmetry. Her mood was described as allright. Her affect appeared slightly restricted in range. Her thought process was linear and logical as she was able to answer questions by writing them down. Her thought content showed no evidence of homicidal or suicidal ideation. She did not appear to be responding to internal stimuli. There was no clear evidence of delusional thinking. She was alert and oriented to person, place, time, and situation. Her recent and remote memory appeared grossly intact. Her insight was limited. Her judgment was poor. Her impulse control appeared fair. Vitals/I&O/Wt Last Vital Signs Temp 98.0 F 05/21/24 06:00 Pulse 110 H 05/21/24 06:00 Resp 18 05/21/24 06:00 BP 129/78 05/21/24 06:00 Pulse Ox 98 05/21/24 06:00 O2 Del Method Room Air 05/20/24 14:00 Weight last 48 hrs Weight 89.358 kg Weight 89.358 kg Data NPU 05/20/24 02:14 05/20/24 02:14 Micro: Microbiology 05/20/24 02:08 Urine Culture - Preliminary Urine,Clean Catch Strep agalactiae - (group b) Microbiology 05/20/24 02:08 Urine,Clean Catch Urine Culture - Preliminary Strep agalactiae - (group b) A&P Assessment and plan (1) Major depressive disorder, recurrent episode, moderate with anxious distress: (2) Chronic post-traumatic stress disorder: (3) Panic disorder without agoraphobia: Plan 38-year-old female admitted with alleged suicidal ideation with a history of major depressive disorder and PTSD currently on 96-hour hold. #1.? Engage patient in individual milieu and group therapy. #2?? Recommend sober living treatment at the highest level of care to which the patient is willing to commit #3??? Restart outpatient medications, increase prozac to 60mg daily. #4?? TO-15 minute checks? #5?? Will attempt to gather collateral information, will complete swallowing study, OT/speech therapy involved. Involuntary Hold Information 2 96 Hour Hold: 96 Hour Involuntary Admission: Yes 96 Hour Hold Ending Date: 05/29/24 96 Hour Hold Ending Time: 00:01 Other Hold: Hold End Date: 04/29/25 Attestations NPU 2 Medical Necessity Statement*: Inpatient hospitalization is medically necessary and deemed to ?be ?the clinically appropriate intervention ?at this time.? We will monitor/initiate medications and make changes as indicated.? The patient?s likely length of stay 2-3 days. Coding Level of Care Code Acute Code for Chg Fwd Diagnoses Major depressive disorder, recurrent episode, moderate with anxious distress F33.1 Chronic post-traumatic stress disorder F43.12 Panic disorder without agoraphobia F41.0
[2024-05-21 14:00] VITALS: BP 121/76; PULSE 92; RESP 16; TEMP 36.6; O2SAT 94
[2024-05-21 19:18] VITALS: BP 141/103; PULSE 107; RESP 14; TEMP 36.6; O2SAT 95
[2024-05-21] MEDS: cyclobenzaprine 10 mg Tablet PO (20:09)
[2024-05-21 22:00] VITALS: BP 141/103; PULSE 107; RESP 14; TEMP 36.6; O2SAT 95
[2024-05-22 06:00] VITALS: BP 110/68; PULSE 108; RESP 17; TEMP 37; O2SAT 99
[2024-05-22] MEDS: acetaminophen 325 mg Tablet 650 MG PEG-TUBE ×2 (06:23→10:53)
[2024-05-22] MEDS: gabapentin 400 mg Capsule PEG-TUBE (09:59)
[2024-05-22] MEDS: fluoxetine 20 mg Capsule 40 MG PEG-TUBE (09:59)
[2024-05-22] MEDS: levothyroxine 137 mcg Tablet PEG-TUBE (09:59)
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
[2024-05-22 12:45] VITALS: BP 110/68; PULSE 108; RESP 17; TEMP 37; O2SAT 99
== END 2024-05-22 13:58 | disposition home or self-care (01) | DRG 885 ==
LOC: ER 03:36 → NP 03:56
PROVIDERS: Admitting Provider Psychiatry & Neurology Psychiatry; Emergency Provider Emergency Medicine; Visit Provider Psychiatry & Neurology Psychiatry
DX: F33.1 Major depressive disorder, recurrent, moderate (principal); R45.851 Suicidal ideations; F43.12 Post-traumatic stress disorder, chronic; F40.01 Agoraphobia with panic disorder; F17.290 Nicotine dependence, other tobacco product, uncomplicated; Z90.710 Acquired absence of both cervix and uterus; Z90.49 Acquired absence of other specified parts of digestive tract; Z83.3 Family history of diabetes mellitus; Z82.49 Family history of ischemic heart disease and other diseases of the circulatory system; Z93.1 Gastrostomy status; Z98.890 Other specified postprocedural states; G51.0 Bell's palsy; Z63.0 Problems in relationship with spouse or partner; R26.81 Unsteadiness on feet; R47.1 Dysarthria and anarthria
CPT/HCPCS: 0241U; 36415; 70450; 74230; 80053; 80306; 80307; 81001; 81025; 84443; 85025; 87077; 87086; 87186; 92523; 92610; 92611; 93005; 97150; 97165; 99285

== ENCOUNTER 2024-05-22 17:04 | Inpatient (IN) | payer MEDICARE, MEDICAID, SELFPAY ==
[2021-08-10 11:47] VITALS: BP 112/81; BMI 44.3
[2024-05-22 17:10] VITALS: BP 124/88; PULSE 120; RESP 18; TEMP 36.7; O2SAT 95
--- NOTE | 2024-05-22 17:22 | PC.NURSE ---
96 hr rights reviewed with patient @[id number] with assistance of [facility] loan officer assistant Wang. All education reviewed. No verbalized questions or concerns at this time. Patient copy left @bedside with pt.
[2024-05-22 17:36] LABS: Basophils % 0.4 %; Eosinophils # 0.1 10^3/uL (0.0-0.8); Eosinophils % 1.1 %; Hematocrit 43.7 % (36-47); Lymphocytes # 2.1 10^3/uL (0.8-4.8); Lymphocytes % 20.4 %; Mean Corpuscular HGB Conc 30.2 g/dL (30-55); Mean Corpuscular Hemoglobin 25.7 pg (27-33); Mean Platelet Volume 10.4 fL (7.4-10.4); Monocytes # 0.5 10^3/uL (0.2-0.9); Monocytes % 5.3 %; Neutrophils % 72.5 %; Nucleated Red Blood Cells % 0 %; Platelet Count 271 10^3/cmm (157-399); Red Blood Count 5.14 10^6/uL (3.85-5.65); Red Cell Distribution Width 15.2 % (12.1-15.1); White Blood Count 10.06 10^3/uL (3.29-11.43)
[2024-05-22 17:47] VITALS: BP 142/81; PULSE 130; RESP 18; O2SAT 96
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
[2024-05-22 17:48] VITALS: PULSE 126; RESP 19; O2SAT 97
[2024-05-22 17:57] LABS: Alanine Aminotransferase 14 U/L (0-33); Albumin Level 4.4 g/dL (3.5-5.2); Alkaline Phosphatase 119 U/L (35-105); Anion Gap 17.6 (5-19); Aspartate Amino Transferase 17 U/L (0-32); Blood Urea Nitrogen 11 mg/dL (6-20); Calcium 10.2 mg/dL (8.5-10.5); Carbon Dioxide 29 mmol/L (22-29); Chloride 98 mmol/L (98-107); Globulin 3.2 g/dL (1.3-4.6); Glomerular Filtration Rate 137.4 mL/min (90-130); Glucose 84 mg/dL (65-115); Osmolality Calculated 291 mOsm/kg (285-295); Potassium 3.6 mmol/L (3.5-5.1); Sodium 141 mmol/L (136-145); Total Bilirubin 0.2 mg/dL (0.15-1.2); Total Protein 7.6 g/dL (6.6-8.7)
[2024-05-22 17:58] LABS: Acetaminophen < 5.0 ug/mL (10-30); Alcohol Level < 10 mg/dL (0-10); Salicylate < 0.3 mg/dL (3-10)
[2024-05-22 18:08] LABS: Bilirubin Urine Negative (Negative); Blood Urine Negative (Negative); Glucose Urine UA Negative (Normal); Ketones Urine Negative (Negative); Leukocyte Esterase Urine 3+ (Negative); Nitrate Urine Negative (Negative); Protein Urine Negative (Negative); Urine Appearance Clear (CLEAR); Urine Color Yellow (Yellow); pH Urine 6.5 (5-7)
[2024-05-22 18:11] LABS: HCG Qualitative Urine. Negative (Negative)
[2024-05-22 18:13] LABS: Add Urine Microscopic? YES; Bacteria Urine 2+ /hpf; Hyaline Casts Urine 2.46 /lpf; RBC Urine 0-2 /hpf (0-2); WBC Urine 51-100 /hpf (0-5)
[2024-05-22 18:16] VITALS: BP 133/95; PULSE 126; RESP 16; TEMP 37.2; O2SAT 98
[2024-05-22 18:17] VITALS: BP 140/77; PULSE 120; O2SAT 97
[2024-05-22 18:20] LABS: Amphetamines Screen Urine Negative (Negative); Barbiturates Screen Urine Negative (Negative); Benzodiazepines Screen Urine Positive (Negative); Cocaine Screen Urine Negative (Negative); Opiate Screen Urine Negative (Negative); PCP Screen Urine Negative (Negative); THC Screen Urine Negative (Negative)
[2024-05-22 18:30] LABS: Add Urine Culture? Yes
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
[2024-05-22 19:54] VITALS: BP 131/79; PULSE 120; RESP 20; TEMP 37.3; O2SAT 98
[2024-05-22] MEDS: acetaminophen 325 mg Tablet 650 MG PO (19:55)
[2024-05-22] MEDS: cyclobenzaprine 10 mg Tablet PO (19:56)
[2024-05-22] MEDS: gabapentin 400 mg Capsule PEG-TUBE (19:56)
[2024-05-23] MEDS: acetaminophen 325 mg Tablet 650 MG PO ×2 (03:36→09:03)
[2024-05-23 06:00] VITALS: BP 101/65; PULSE 99; RESP 17; TEMP 36.7; O2SAT 96
[2024-05-23] MEDS: fluoxetine 20 mg Capsule 40 MG PEG-TUBE (09:02)
[2024-05-23] MEDS: levothyroxine 137 mcg Tablet PO (09:03)
[2024-05-23] MEDS: gabapentin 400 mg Capsule PEG-TUBE ×3 (09:03→19:55)
[2024-05-23] MEDS: ibuprofen 600 mg Tablet PO (11:57)
[2024-05-23 14:00] VITALS: BP 122/83; PULSE 119; RESP 18; TEMP 36.8; O2SAT 99
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
[2024-05-23 19:50] VITALS: BP 122/89; PULSE 120; RESP 19; TEMP 36.8; O2SAT 93
[2024-05-23] MEDS: trazodone 50 mg Tablet PO (19:54)
[2024-05-23] MEDS: calcium carbonate 500 mg Chew Tablet 1000 MG PO (19:54)
[2024-05-23] MEDS: hyDROXYzine 25 mg Capsule 50 MG PO (19:54)
[2024-05-24 06:00] VITALS: BP 108/73; PULSE 107; RESP 17; TEMP 36.9; O2SAT 92
[2024-05-24] MEDS: acetaminophen 325 mg Tablet 650 MG PO ×3 (06:32→20:27)
[2024-05-24] MEDS: gabapentin 400 mg Capsule PEG-TUBE ×3 (09:24→20:27)
[2024-05-24] MEDS: fluoxetine 20 mg Capsule 60 MG PEG-TUBE (09:24)
[2024-05-24] MEDS: levothyroxine 137 mcg Tablet PO (09:24)
--- NOTE | 2024-05-24 11:30 | P.NPUPN_ITS ---
Subjective NPU 2 Subjective: 38-year-old female admitted with alleged ly suicidal ideation with a history of major depressive disorder, PTSD, and panic disorder. The patient had reported that she had decided that she wished to live somewhere else despite her concerns about her children remaining with her ex-partner. Patient reports some continued depression but reports that she has not been feeling suicidal. She was compliant on the milieu but isolative. Mental Status Exam 2 MSE Comments: Patient required the use of a walker. Her gait was unsteady. Her hygiene was fair. There was no evidence of any abnormal involuntary motor movements, tics, or tremors appreciated. Her speech showed evidence of significant dysarthria and she was unable to communicate verbally. There was evidence of facial asymmetry. Her mood was described as allright. Her affect appeared restricted in range. Her thought process was linear and logical as she was able to answer questions by writing them down. Her thought content showed no evidence of homicidal and denied homicidal ideation. She did not appear to be responding to internal stimuli. There was no clear evidence of delusional thinking. She was alert and oriented to person place, time, and situation. Her recent and remote memory appeared grossly intact. Her insight was limited. Her judgment was poor. Her impulse control appeared limited at this time. Vitals/I&O/Wt Last Vital Signs Temp 98.4 F 05/24/24 06:00 Pulse 107 H 05/24/24 06:00 Resp 17 05/24/24 06:00 BP 108/73 05/24/24 06:00 Pulse Ox 92 05/24/24 06:00 O2 Del Method Room Air 05/22/24 18:39 Weight last 48 hrs Weight 89.35 kg Data NPU 05/22/24 17:28 05/22/24 17:28 A&P Assessment and plan (1) Major depressive disorder, recurrent episode, moderate with anxious distress: (2) Chronic post-traumatic stress disorder: (3) Panic disorder without agoraphobia: Plan 38-year-old female admitted with suicidal ideation with a history of major depressive disorder and PTSD currently on 96-hour hold returning in less than 24 hours #1.? Engage patient in individual milieu and group therapy. #2?? Recommend sober living treatment at the highest level of care to which the patient is willing to commit #3??? Continue Prozac 60mg daily through tube. Discharge to [facility] not an option given complexity of medical treatment needed. She is currently homeless. #4?? TO-15 minute checks? #5?? Will attempt to gather collateral information, will complete swallowing study, Speech therapy evaluation ordered today. Involuntary Hold Information 2 96 Hour Hold: 96 Hour Involuntary Admission: Yes 96 Hour Hold Ending Date: 05/29/24 96 Hour Hold Ending Time: 17:10 Other Hold: Hold End Date: 05/29/25 Attestations NPU 2 Medical Necessity Statement*: Inpatient hospitalization is medically necessary and deemed to ?be ?the clinically appropriate intervention ?at this time.? We will monitor/initiate medications and make changes as indicated.?? The patient?s likely length of stay 4-6 days. Coding Level of Care Code Acute Code for Chg Fwd Diagnoses Major depressive disorder, recurrent episode, moderate with anxious distress F33.1 Chronic post-traumatic stress disorder F43.12 Panic disorder without agoraphobia F41.0
[2024-05-24] MEDS: diphenhydrAMINE 25 mg Capsule PO (12:07)
[2024-05-24 14:00] VITALS: BP 89/60; PULSE 102; RESP 16; TEMP 36.6; O2SAT 95
[2024-05-24] MEDS: ibuprofen 600 mg Tablet PO (18:18)
[2024-05-24 20:07] VITALS: BP 105/66; PULSE 109; RESP 18; TEMP 37.1; O2SAT 93
[2024-05-24] MEDS: trazodone 50 mg Tablet PO (20:27)
[2024-05-25 06:00] VITALS: BP 106/69; PULSE 98; RESP 16; O2SAT 93
[2024-05-25] MEDS: levothyroxine 137 mcg Tablet PO ×2 (08:28→08:39)
[2024-05-25] MEDS: acetaminophen 325 mg Tablet 650 MG PO ×2 (08:39→21:32)
[2024-05-25] MEDS: gabapentin 400 mg Capsule PEG-TUBE ×3 (08:40→21:33)
[2024-05-25] MEDS: fluoxetine 20 mg Capsule 60 MG PEG-TUBE (08:40)
--- NOTE | 2024-05-25 09:48 | P.NPUPN_ITS ---
Subjective NPU 2 Subjective: 38-year-old female admitted with alleged ly suicidal ideation with a history of major depressive disorder, PTSD, and panic disorder. Patient denied any suicidal thoughts today. She had reported that she remained homeless. She had stated that she would not mind going to an assisted facility. She had stated that she was willing to accept that her children may require temporary guardianship from her ex lover. She was compliant on the milieu but isolative. Mental Status Exam 2 MSE Comments: Patient required the use of a walker. Her gait was unsteady. Her hygiene was fair. There was no evidence of any abnormal involuntary motor movements, tics, or tremors appreciated. Her speech showed evidence of significant dysarthria and she was unable to communicate verbally. There was evidence of facial asymmetry. Her mood was described as okay (2 thumbs up) Her affect appeared restricted in range. Her thought process was linear and logical as she was able to answer questions by writing them down. Her thought content showed no evidence of homicidal and denied homicidal ideation. She did not appear to be responding to internal stimuli. There was no clear evidence of delusional thinking. She was alert and oriented to person place, time, and situation. Her recent and remote memory appeared grossly intact. Her insight was limited. Her judgment was fair. Her impulse control appeared limited at this time. Vitals/I&O/Wt Last Vital Signs Temp 98.7 F 05/24/24 20:07 Pulse 98 05/25/24 06:00 Resp 16 05/25/24 06:00 BP 106/69 05/25/24 06:00 Pulse Ox 93 05/25/24 06:00 O2 Del Method Room Air 05/24/24 14:00 Data NPU 05/22/24 17:28 05/22/24 17:28 A&P Assessment and plan (1) Major depressive disorder, recurrent episode, moderate with anxious distress: (2) Chronic post-traumatic stress disorder: (3) Panic disorder without agoraphobia: Plan 38-year-old female admitted with suicidal ideation with a history of major depressive disorder and PTSD currently on 96-hour hold returning in less than 24 hours #1.? Engage patient in individual milieu and group therapy. #2?? Recommend sober living treatment at the highest level of care to which the patient is willing to commit #3??? Continue Prozac 60mg daily through tube. Discharge to half-way not an option given complexity of medical treatment needed. She is currently homeless. #4?? TO-15 minute checks? #5?? Will attempt to gather collateral information, will complete swallowing study, Continue speech therapy. #6 Consider placement in continued medical care facility as patient homeless and cannot go to half-way with her needs at home with rehabilitation s/p craniotomy. Involuntary Hold Information 2 96 Hour Hold: 96 Hour Involuntary Admission: Yes 96 Hour Hold Ending Date: 05/29/24 96 Hour Hold Ending Time: 17:10 Other Hold: Hold End Date: 05/29/25 Attestations NPU 2 Medical Necessity Statement*: Inpatient hospitalization is medically necessary and deemed to ?be ?the clinically appropriate intervention ?at this time.? We will monitor/initiate medications and make changes as indicated.?? The patient?s likely length of stay 4-6 days. Coding Level of Care Code Acute Code for Chg Fwd Diagnoses Major depressive disorder, recurrent episode, moderate with anxious distress F33.1 Chronic post-traumatic stress disorder F43.12 Panic disorder without agoraphobia F41.0
[2024-05-25] MEDS: ibuprofen 600 mg Tablet PO (12:46)
[2024-05-25 14:00] VITALS: BP 121/74; PULSE 123; RESP 18; TEMP 37.2; O2SAT 94
--- NOTE | 2024-05-25 15:23 | P.CONIM_ITS ---
Providers/Reason For Consult 2 Consulting Physician/Specialty*: psychiatory Reason for Consult*: brain tumor Attending Physician: Kyler Alexis MD History of Present Illness History of Present Illness Magalie Dobbs is a 38 year old female with a past medical history of prolonged hospitalization at [facility] for what it sounds like resection of brain tumor, required and prolonged intubation, complicated with infection, she has a tracheostomy in place, still has a PEG tube in place which she does not use, currently orally feeding, she has left facial paralysis inability to completely close left eyelid, residual from surgery? Patient denies a stroke she reports chronic weakness of the right side, history of vocal cord paralysis after prolonged intubation? Currently admitted to neuropsychiatric unit, hospitalist team was consulted. Currently patient is working with OT, she has no specific complaints, does report weakness on the right side which is chronic, but she is able to write for me, she is unsteady on her feet, she has not used a PEG tube in some time, denies any fevers, no chills, no cough, no abdominal pain, no chest pain, she tells me she has an appointment with neurosurgery June 14 in [facility], she is not able to speak, she is able to write her answers out for me Review of Systems 2 Card: Denies: chest pain Resp: Denies: dyspnea GI: Denies: abdominal pain Medications/Allergies Home Medications Medication Instructions Recorded Confirmed Last Taken Type acetaminophen 650 mg 650 mg PO Q8H PRN pain 01/26/21 05/22/24 04/02/21 History tablet,extended release (Tylenol Arthritis Pain) diclofenac sodium 75 mg 75 mg PO BID PRN pain 30 days #60 10/04/23 05/22/24 Unknown Rx tablet,delayed release tabs levothyroxine 137 mcg tablet 137 mcg PO DAILY 90 days #90 tabs 11/19/23 05/22/24 1 Day Ago Rx ~05/19/24 cyclobenzaprine 5 mg tablet 10 mg PO BEDTIME PRN muscle spasm 12/27/23 05/22/24 Unknown History diphenhydramine HCl 25 mg capsule 25 mg PO TID PRN ALLERGIES 12/27/23 05/22/24 Unknown History (Benadryl) hydroxyzine pamoate 50 mg capsule 50 mg PO BID PRN Anxiety 12/27/23 05/22/24 1 Day Ago History ~05/19/24 ibuprofen 200 mg tablet 1,000 mg PO Q6H PRN Pain 12/27/23 05/22/24 12/26/23 History fluoxetine 40 mg capsule 40 mg feeding tube DAILY 05/20/24 05/22/24 Unknown History gabapentin 400 mg capsule 400 mg feeding tube TID 05/20/24 05/22/24 Unknown History Allergies Allergy/AdvReac Type Severity Reaction Status Date / Time hydrocodone Allergy ALGY-Swell Verified 05/20/24 01:37 Lip/Tongue/Throat oxycodone [From Percocet] Allergy ALGY-Swell Verified 05/20/24 01:37 Lip/Tongue/Throat Influenza Virus Vaccines AdvReac Intermediate ADR-Muscle Verified 01/10/24 20:14 Pain Current Medications Generic Name Dose Route Start Last Admin Trade Name Freq PRN Reason Stop Dose Admin Acetaminophen 650 mg 05/22/24 18:16 05/25/24 08:39 Acetaminophen 325 Mg Tablet PO 650 mg Q4H PRN Administration MILD PAIN Calcium Carbonate 1,000 mg 05/23/24 18:55 05/23/24 19:54 Calcium Carbonate 500 Mg Chew Tablet PO 1,000 mg Q4H PRN Administration HEARTBURN Cyclobenzaprine HCl 10 mg 05/22/24 18:41 05/22/24 19:56 Cyclobenzaprine 10 Mg Tablet PO 10 mg BEDTIME PRN Administration muscle spasm Diphenhydramine HCl 25 mg 05/22/24 18:41 05/24/24 12:07 Diphenhydramine 25 Mg Capsule PO 25 mg TID PRN Administration ALLERGIES Fluoxetine HCl 60 mg 05/24/24 09:00 05/25/24 08:40 Fluoxetine 20 Mg Capsule PEG-TUBE 60 mg DAILY PHAM Administration Gabapentin 400 mg 05/22/24 21:00 05/25/24 15:07 Gabapentin 400 Mg Capsule PEG-TUBE 400 mg TID PHAM Administration Hydroxyzine Pamoate 50 mg 05/22/24 18:16 05/23/24 19:54 Hydroxyzine 25 Mg Capsule PO 50 mg Q6H PRN Administration ANXIETY Ibuprofen 600 mg 05/22/24 18:16 05/25/24 12:46 Ibuprofen 600 Mg Tablet PO 600 mg Q6H PRN Administration MODERATE PAIN Levothyroxine Sodium 137 mcg 05/23/24 09:00 05/25/24 08:39 Levothyroxine 137 Mcg Tablet PO 137 mcg DAILY PHAM Administration Trazodone HCl 50 mg 05/22/24 18:16 05/24/24 20:27 Trazodone 50 Mg Tablet PO 50 mg BEDTIME PRN Administration SLEEP PFSH Acute 2 PFSH: Medical History Nicotine dependence, other tobacco product, uncomplicated Vaping 6 mg Nicotine Chronic post-traumatic stress disorder Major depressive disorder, recurrent episode, moderate with anxious distress Panic disorder without agoraphobia Urolithiasis Surgical History Hx of hysterectomy Hx of cholecystectomy Family History Mother Diabetes CAD (coronary artery disease), Onset Age: 59 Brother CAD (coronary artery disease), Onset Age: 30 Social History Smoking and tobacco/nicotine status: current every day tobacco/nicotine user (vape) Alcohol intake: former Substance/Drug Use: former Adopted: No Caregiver/support person: No Lives independently: Yes Household members: significant other and children Housing: Manufactured/Mobile home Marital status: Single Number of children: 2 Number of grandchildren: 0 Highest education level completed: High School Graduate Current occupational status: disabled Current occupational exposures/hazards: No Pets and animals: Yes Pets & animals: cat(s) Leisure activites: art and other Leisure activities details: Watch TV Sexually active: Yes Do you think of yourself as: Straight/Heterosexual Current gender identity: Female Mary/Faith: None Special mary needs: No Female Reproductive History: Para: 2 Vitals/I&O/Wt Last Vital Signs Temp 98.9 F 05/25/24 14:00 Pulse 123 H 05/25/24 14:00 Resp 18 05/25/24 14:00 BP 121/74 05/25/24 14:00 Pulse Ox 94 05/25/24 14:00 O2 Del Method Room Air 05/24/24 14:00 Physical Exam 2 Const: COMMON NORMALS: no acute distress ORIENTATION/CONSCIOUSNESS: Yes awake, Yes oriented to person and Yes oriented to place; not oriented to time HENMT: COMMON NORMALS: normocephalic HEAD & SCALP: normocephalic Eye: OTHER: Inability to completely close left eyelid, pupils equal round reactive to light, has chronic left-sided facial paralysis almost facial droop Resp: COMMON NORMALS: normal respiratory effort, No retractions, No use of accessory muscles and clear to auscultation bilaterally AUSCULTATION: clear to auscultation bilaterally Cardio: COMMON NORMALS: regular rate, regular rhythm, S1 normal heart sound present and S2 normal heart sound present RATE: regular rate RHYTHM: r egular rhythm HEART SOUNDS: S1 normal heart sound present and S2 normal heart sound present GI: COMMON NORMALS: Normal to inspection, nondistended, normoactive bowel sounds present, non-tender and no masses Extremity: COMMON NORMALS: no pedal edema Neuro: SENSORIUM/ORIENTATION: Yes oriented to person, Yes oriented to place and No oriented to time OTHER: Cannot discern any focal weakness, has good strength upper lower extremities does report unsteadiness on her feet Data 05/22/24 17:28 05/22/24 17:28 A&P Assessment and plan (1) Cerebellar mass: Plan 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 -Has a trach, PEG tube -Has vocal cord paralysis? -Hospitalization complicated by infection according to patient ? Has left facial droop, left facial swelling, inability to close left eyelid, presumably as a postoperative complication? -She denies any stroke ? Does report weakness of the right side, although I cannot discern any significant weakness -modified barium FL/FL barium swallow modifd [id number] Impression: 1. 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 2. Poor oral bolus progression with significant oral residue. 3. Significant hypopharyngeal weakness with residue in the vallecula and poor progression of material into the esophagus. 4. Penetration with numerous substances and aspiration with liquids. repeat head ct FINDINGS: Brain: No acute intracranial hemorrhage, mass effect or midline shift. Grossly unchanged encephalomalacia at the left cerebellum. Cerebral ventricles: Stable size and configuration of the ventricles. Paranasal sinuses: Visualized sinuses are unremarkable. No fluid levels. Mastoid air cells: Visualized mastoid air cells are well aerated. Bones: Craniotomy changes at the left occipital bone. No acute calvarial findings. Soft tissues: Unremarkable. CT/CT head wo con* [id number] IMPRESSION: Plan -PT OT, speech therapy eval -Can ambulate with a walker, can feed herself is able to write -Currently on dysphagia level 4 diet, -Monitor closely -Await records from [facility] -Cannot close left eyelid, will need eyedrops every 4 hours, eye care - Consult Attestations 2 Medical Necessity Statement: Patient requires hospitalization for left cerebellar/pontine mass, status post surgical resection Diagnoses Cerebellar mass G93.89
[2024-05-25 15:35] VITALS: BP 121/74; PULSE 123; RESP 18; TEMP 37.2
[2024-05-25 15:38] VITALS: PULSE 114
[2024-05-25 16:00] VITALS: BP 121/74; PULSE 123; RESP 18; TEMP 37.2
[2024-05-25] MEDS: artificial tears Op Soln 15 mL Btl 1 DROP EYE-LEFT ×2 (16:15→21:33)
--- NOTE | 2024-05-25 16:37 | ECG_ITS ---
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 Measurements Intervals [place] Rate: 114 P: 28 OK: 104 QRS: 44 QRSD: 94 T: 40 QT: 327 QTc: 451 Interpretive Statements SINUS TACHYCARDIA WITH SHORT OK INTERVAL Compared to ECG 05/20/2024 02:16:28 Short OK interval now present Sinus rhythm no longer present Electronically Signed On 05-26-2024 10:26:27 CHEF TEACHER by Carlos Orozco M.D. [email or web address]
[2024-05-25 19:51] VITALS: BP 112/72; PULSE 103; RESP 16; TEMP 36.9; O2SAT 95
[2024-05-25] MEDS: trazodone 50 mg Tablet PO (21:33)
[2024-05-25] MEDS: cefdinir 300 MG CAPSULE PEG-TUBE (21:33)
[2024-05-26 06:00] VITALS: BP 93/61; PULSE 100; RESP 16; TEMP 36.8; O2SAT 97
[2024-05-26] MEDS: artificial tears Op Soln 15 mL Btl 1 DROP EYE-LEFT ×4 (06:47→18:02)
--- NOTE | 2024-05-26 07:00 | XRR_ITS ---
PROCEDURE INFORMATION: Exam: XR Chest Exam date and time: 05/26/2024 7:31 AM Age: 38 years old Clinical indication: Shortness of breath; Additional info: SOB TECHNIQUE: Imaging protocol: Radiologic exam of the chest. Views: 1 view. COMPARISON: CR (CHEST, ) 01/10/2024 8:50 PM FINDINGS: Lungs: Bibasilar atelectasis noted. No infiltrate. Pleural spaces: Unremarkable. No pleural effusion. No pneumothorax. Heart/Mediastinum: Unremarkable. No cardiomegaly. Bones/joints: Unremarkable. XR/XR chest 1V portable [id number] IMPRESSION: No acute findings.
[2024-05-26] MEDS: gabapentin 400 mg Capsule PEG-TUBE ×3 (08:35→20:19)
[2024-05-26] MEDS: cefdinir 300 MG CAPSULE PEG-TUBE (08:35)
[2024-05-26] MEDS: fluoxetine 20 mg Capsule 60 MG PEG-TUBE (08:36)
[2024-05-26] MEDS: levothyroxine 137 mcg Tablet PO (08:37)
[2024-05-26 09:23] LABS: Basophils % 0.4 %; Eosinophils # 0.1 10^3/uL (0.0-0.8); Eosinophils % 1.1 %; Hematocrit 41.4 % (36-47); Lymphocytes # 1.6 10^3/uL (0.8-4.8); Lymphocytes % 16.9 %; Mean Corpuscular HGB Conc 29.7 g/dL (30-55); Mean Corpuscular Hemoglobin 25.7 pg (27-33); Mean Corpuscular Volume 86.4 fl (85-98); Mean Platelet Volume 10.8 fL (7.4-10.4); Monocytes # 0.5 10^3/uL (0.2-0.9); Monocytes % 4.7 %; Neutrophils # 7.34 10^3/uL (1.8-7.7); Neutrophils % 76.7 %; Nucleated Red Blood Cells % 0 %; Platelet Count 212 10^3/cmm (157-399); Red Blood Count 4.79 10^6/uL (3.85-5.65); White Blood Count 9.58 10^3/uL (3.29-11.43)
[2024-05-26 09:36] LABS: Alanine Aminotransferase 14 U/L (0-33); Albumin Level 3.8 g/dL (3.5-5.2); Alkaline Phosphatase 104 U/L (35-105); Anion Gap 15.1 (5-19); Aspartate Amino Transferase 18 U/L (0-32); Blood Urea Nitrogen 12 mg/dL (6-20); Calcium 9.8 mg/dL (8.5-10.5); Carbon Dioxide 28 mmol/L (22-29); Chloride 100 mmol/L (98-107); Globulin 3.2 g/dL (1.3-4.6); Glomerular Filtration Rate 177.7 mL/min (90-130); Glucose 105 mg/dL (65-115); Magnesium 1.6 mg/dL (1.7-2.3); Osmolality Calculated 288 mOsm/kg (285-295); Phosphorus 3.8 mg/dL (2.5-4.5); Potassium 4.1 mmol/L (3.5-5.1); Sodium 139 mmol/L (136-145); Total Bilirubin 0.2 mg/dL (0.15-1.2)
[2024-05-26 09:37] LABS: Creatinine Clr Calc Pharmacy 204.3707
[2024-05-26] MEDS: acetaminophen 325 mg Tablet 650 MG PO ×2 (09:44→20:18)
[2024-05-26] MEDS: amoxicillin-clav 875-125 mg Tablet 1 TAB PEG-TUBE ×2 (09:44→18:02)
[2024-05-26 14:00] VITALS: BP 111/80; PULSE 60; RESP 18; TEMP 36.8; O2SAT 94
[2024-05-26] MEDS: cyclobenzaprine 10 mg Tablet PO (16:31)
[2024-05-26 19:41] VITALS: BP 121/89; PULSE 109; RESP 16; TEMP 37.5; O2SAT 95
[2024-05-26] MEDS: diclofenac 75 mg DR Tablet PO (20:18)
[2024-05-26] MEDS: hyDROXYzine 25 mg Capsule 50 MG PEG-TUBE (20:19)
[2024-05-26] MEDS: trazodone 50 mg Tablet PO (20:19)
--- NOTE | 2024-05-26 20:56 | W.PM.NPUPNS ---
Subjective NPU Subjective: Patient presented today reporting that she is doing okay. She seems to have an understanding of her situation per staff reports and direct conversation. She knowledges being in a difficult situation we agreed we would continue the conversation going into Tuesday about how to manage the process of getting her into a level 2 placement. She denied any side effects or medication. Mental Status Exam MSE Comments: This is an obese white female in hospital scrubs with limited grooming and eye contact. No abnormal movements except mild psychomotor retardation. Cooperative with exam in no acute distress. Speech was slightly decreased rate but normal volume and she showed evidence of significant dysarthria and she was limited in her ability to communicate verbally. There was evidence of facial asymmetry. Her mood was described as okay (2 thumbs up) Her affect appeared restricted in range. Her thought process was linear and logical as she was able to answer questions by writing them down. Her thought content showed no evidence of homicidal or suicidal ideation. Also she did not appear to be responding to internal stimuli. There was no clear evidence of delusional thinking. Attention and concentration appeared intact and her recent and remote memory appeared grossly intact but none were formally tested.. Her insight was limited. Her judgment was fair. Her impulse control appeared limited at this time. Vitals/I&O/Wt Last Vital Signs Temp 99.5 F 05/26/24 19:41 Pulse 109 H 05/26/24 19:41 Resp 16 05/26/24 19:41 BP 121/89 05/26/24 19:41 Pulse Ox 95 05/26/24 19:41 O2 Del Method Room Air 05/26/24 14:00 Data NPU 05/26/24 09:02 05/26/24 09:02 Micro: Microbiology 05/22/24 17:37 Urine Culture - Final Urine,Clean Catch Strep agalactiae - (group b) Microbiology 05/22/24 17:37 Urine,Clean Catch Urine Culture - Final Strep agalactiae - (group b) A&P Assessment and plan (1) Major depressive disorder, recurrent episode, moderate with anxious distress: (2) Chronic post-traumatic stress disorder: (3) Panic disorder without agoraphobia: Plan 38-year-old female admitted with suicidal ideation with a history of major depressive disorder and PTSD currently on 96-hour hold returning in less than 24 hours 1.? Encourage individual, group and milieu therapy. 2.? Recommend sober living treatment at the highest level of care to which the patient is willing to commit 3.??Continue Prozac 60mg daily through tube. Discharge to retirement not an option given complexity of medical treatment needed. She is currently homeless. 4.? Continue every 15 minute checks for safety? 5.??Will attempt to gather collateral information, will complete swallowing study, Continue speech therapy. 6. Consider placement in continued medical care facility as patient homeless and cannot go to retirement with her needs at home with rehabilitation s/p craniotomy. Will talk with her about the prospect of returning to her previous residence while she awaits placement for the level 2. Involuntary Hold Information 96 Hour Hold: 96 Hour Involuntary Admission: Yes 96 Hour Hold Ending Date: 05/29/24 96 Hour Hold Ending Time: 17:10 Other Hold: Hold End Date: 05/29/25 Attestations NPU Medical Necessity Statement*: Inpatient hospitalization is medically necessary and the clinically appropriate intervention at this time.? We will monitor/initiate medications and make changes as indicated.?? The patient?s likely length of stay 4-6 days. Coding Level of Care Code Acute Code for Chg Fwd Diagnoses Major depressive disorder, recurrent episode, moderate with anxious distress F33.1 Chronic post-traumatic stress disorder F43.12 Panic disorder without agoraphobia F41.0
[2024-05-27 06:00] VITALS: BP 102/76; PULSE 101; RESP 16; TEMP 36.7; O2SAT 93
[2024-05-27] MEDS: artificial tears Op Soln 15 mL Btl 1 DROP EYE-LEFT ×5 (07:48→20:25)
[2024-05-27 08:00] VITALS: BP 102/76; PULSE 101; RESP 16; TEMP 36.7
[2024-05-27] MEDS: fluoxetine 20 mg Capsule 60 MG PEG-TUBE (08:49)
[2024-05-27] MEDS: amoxicillin-clav 875-125 mg Tablet 1 TAB PEG-TUBE ×2 (08:50→18:00)
[2024-05-27] MEDS: gabapentin 400 mg Capsule PEG-TUBE ×3 (08:50→20:24)
[2024-05-27] MEDS: levothyroxine 137 mcg Tablet PO (08:51)
--- NOTE | 2024-05-27 11:14 | P.NPUPN_ITS ---
Subjective NPU 2 Subjective: Patient presented today reporting that she is doing fairly well. We discussed the plan and needing to find out from the social work team and Theo where things are in the level 2 process. We discussed the fact that once we get the process going that it is possible that once facilities have been identified that she could theoretically go to some safe residence if someone would allow her to for a brief period of time while she awaits her assignment. She seemed to be open to that possibility. She denied any side effects to her medications and reports feeling optimistic about things moving forward. Mental Status Exam 2 MSE Comments: This is an obese white female in hospital scrubs with limited grooming and eye contact. No abnormal movements except mild psychomotor retardation. Cooperative with exam in no acute distress. Speech was slightly decreased rate but normal volume and she showed evidence of significant dysarthria and she was limited in her ability to communicate verbally. There was evidence of facial asymmetry. Her mood was described as okay (2 thumbs up) Her affect appeared restricted in range. Her thought process was linear and logical as she was able to answer questions by writing them down. Her thought content showed no evidence of homicidal or suicidal ideation. Also she did not appear to be responding to internal stimuli. There was no clear evidence of delusional thinking. Attention and concentration appeared intact and her recent and remote memory appeared grossly intact but none were formally tested.. Her insight was limited. Her judgment was fair. Her impulse control appeared limited at this time. Vitals/I&O/Wt Last Vital Signs Temp 98.0 F 05/27/24 08:00 Pulse 101 H 05/27/24 08:00 Resp 16 05/27/24 08:00 BP 102/76 05/27/24 08:00 Pulse Ox 93 05/27/24 06:00 O2 Del Method Room Air 05/26/24 14:00 Weight last 48 hrs Weight 91.081 kg Data NPU 05/26/24 09:02 05/26/24 09:02 A&P Assessment and plan (1) Major depressive disorder, recurrent episode, moderate with anxious distress: (2) Chronic post-traumatic stress disorder: (3) Panic disorder without agoraphobia: Plan 38-year-old female admitted with suicidal ideation with a history of major depressive disorder and PTSD currently on 96-hour hold returning in less than 24 hours 1.? Encourage individual, group and milieu therapy. 2.? Recommend sober living treatment at the highest level of care to which the patient is willing to commit 3.??Continue Prozac 60mg daily through tube. Discharge to group home not an option given complexity of medical treatment needed. She is currently homeless. 4.? Continue every 15 minute checks for safety? 5.??Will attempt to gather collateral information, will complete swallowing study, Continue speech therapy. 6. Consider placement in continued medical care facility as patient homeless and cannot go to group home with her needs at home with rehabilitation s/p craniotomy. Will talk with her about the prospect of returning to her previous residence while she awaits placement for the level 2. Involuntary Hold Information 2 96 Hour Hold: 96 Hour Involuntary Admission: Yes 96 Hour Hold Ending Date: 05/29/24 96 Hour Hold Ending Time: 17:10 Other Hold: Hold End Date: 05/29/25 Attestations NPU 2 Medical Necessity Statement*: Inpatient hospitalization is medically necessary and the clinically appropriate intervention at this time.? We will monitor/initiate medications and make changes as indicated.?? The patient?s likely length of stay 4-6 days. Coding Level of Care Code Acute Code for Chg Fwd Diagnoses Major depressive disorder, recurrent episode, moderate with anxious distress F33.1 Chronic post-traumatic stress disorder F43.12 Panic disorder without agoraphobia F41.0
[2024-05-27 12:00] VITALS: BP 102/76; PULSE 101; RESP 16; TEMP 36.7
[2024-05-27 13:45] VITALS: BP 124/82; PULSE 101; RESP 16; TEMP 36.8; O2SAT 93
[2024-05-27] MEDS: ibuprofen 600 mg Tablet PO (13:59)
[2024-05-27 16:00] VITALS: BP 124/82; PULSE 101; RESP 16; TEMP 36.8
[2024-05-27 20:24] VITALS: BP 114/81; PULSE 113; RESP 18; TEMP 37.2; O2SAT 95
[2024-05-27] MEDS: trazodone 50 mg Tablet PO (20:24)
[2024-05-27] MEDS: guaiFENesin-dextromethorphan UDC 10 mL PO (20:25)
[2024-05-27] MEDS: cyclobenzaprine 10 mg Tablet PO (20:25)
[2024-05-28] VITALS (7 sets, daily range): BP systolic 98–121; BP diastolic 62–87; PULSE 96–115; RESP 12–17; TEMP 36.7–36.9; O2SAT 91–96
[2024-05-28] MEDS: acetaminophen 325 mg Tablet 650 MG PO ×3 (06:42→21:04)
[2024-05-28] MEDS: amoxicillin-clav 875-125 mg Tablet 1 TAB PEG-TUBE ×2 (08:43→18:27)
[2024-05-28] MEDS: gabapentin 400 mg Capsule PEG-TUBE ×3 (08:44→21:04)
[2024-05-28] MEDS: levothyroxine 137 mcg Tablet PO (08:44)
[2024-05-28] MEDS: fluoxetine 20 mg Capsule 60 MG PEG-TUBE (08:44)
[2024-05-28] MEDS: artificial tears Op Soln 15 mL Btl 1 DROP EYE-LEFT ×4 (08:45→18:28)
--- NOTE | 2024-05-28 11:14 | P.NPUPN_ITS ---
Subjective NPU 2 Subjective: Patient presented today reporting that she is doing okay. We discussed her working with the social work team and her family supports either her significant other or her niece so that we can have some place for her to stay while she is awaiting the placement from her level 2. We agreed that her having the level 2 to get the type of care that she needs is optimal but agreed we wanted to also except that it would be unlikely that she would be able to stay in the hospital until the actual placement. She denied any side effects to her medication. Mental Status Exam 2 MSE Comments: This is an obese white female in hospital scrubs with limited grooming and eye contact. No abnormal movements except mild psychomotor retardation. Cooperative with exam in no acute distress. Speech was slightly decreased rate but normal volume and she showed evidence of significant dysarthria and she was limited in her ability to communicate verbally. There was evidence of facial asymmetry. Her mood was described as okay (2 thumbs up) Her affect appeared restricted in range. Her thought process was linear and logical as she was able to answer questions by writing them down. Her thought content showed no evidence of homicidal or suicidal ideation. Also she did not appear to be responding to internal stimuli. There was no clear evidence of delusional thinking. Attention and concentration appeared intact and her recent and remote memory appeared grossly intact but none were formally tested.. Her insight was limited. Her judgment was fair. Her impulse control appeared limited at this time. Vitals/I&O/Wt Last Vital Signs Temp 98.1 F 05/28/24 08:00 Pulse 96 05/28/24 08:00 Resp 16 05/28/24 08:00 BP 98/62 05/28/24 08:00 Pulse Ox 94 05/28/24 06:00 O2 Del Method Room Air 05/27/24 13:45 Weight last 48 hrs Weight 91.081 kg Data NPU 05/26/24 09:02 05/26/24 09:02 A&P Assessment and plan (1) Major depressive disorder, recurrent episode, moderate with anxious distress: (2) Chronic post-traumatic stress disorder: (3) Panic disorder without agoraphobia: Plan 38-year-old female admitted with suicidal ideation with a history of major depressive disorder and PTSD currently on 96-hour hold returning in less than 24 hours 1.? Encourage individual, group and milieu therapy. 2.? Recommend sober living treatment at the highest level of care to which the patient is willing to commit 3.??Continue Prozac 60mg daily through tube. Discharge to senior living not an option given complexity of medical treatment needed. She is currently homeless but had been living with her partner and we are working with them to provide some support for her while she awaits her placement once level 2 has been established. 4.? Continue every 15 minute checks for safety? 5.??Will attempt to gather collateral information, will complete swallowing study, Continue speech therapy. 6. Consider placement in continued medical care facility as patient homeless and cannot go to senior living with her needs at home with rehabilitation s/p craniotomy. Will talk with her about the prospect of returning to her previous residence while she awaits placement for the level 2. Involuntary Hold Information 2 96 Hour Hold: 96 Hour Involuntary Admission: Yes 96 Hour Hold Ending Date: 05/29/24 96 Hour Hold Ending Time: 17:10 Other Hold: Hold End Date: 05/29/24 Attestations NPU 2 Medical Necessity Statement*: Inpatient hospitalization is medically necessary and the clinically appropriate intervention at this time.? We will monitor/initiate medications and make changes as indicated.?? The patient?s likely length of stay 4-6 days. Coding Level of Care Code Acute Code for Chg Fwd Diagnoses Major depressive disorder, recurrent episode, moderate with anxious distress F33.1 Chronic post-traumatic stress disorder F43.12 Panic disorder without agoraphobia F41.0
[2024-05-28] MEDS: hyDROXYzine 25 mg Capsule 50 MG PEG-TUBE (16:24)
[2024-05-28] MEDS: cyclobenzaprine 10 mg Tablet PO (21:04)
[2024-05-28] MEDS: trazodone 50 mg Tablet PO (21:04)
[2024-05-29 06:00] VITALS: BP 124/86; PULSE 92; RESP 16; TEMP 36.7; O2SAT 98
[2024-05-29 08:00] VITALS: BP 124/86; PULSE 92; RESP 16; TEMP 36.7
[2024-05-29] MEDS: artificial tears Op Soln 15 mL Btl 1 DROP EYE-LEFT ×3 (08:32→16:25)
[2024-05-29] MEDS: acetaminophen 325 mg Tablet 650 MG PO ×2 (08:33→20:36)
[2024-05-29] MEDS: fluoxetine 20 mg Capsule 60 MG PEG-TUBE (08:34)
[2024-05-29] MEDS: gabapentin 400 mg Capsule PEG-TUBE ×3 (08:34→20:36)
[2024-05-29] MEDS: amoxicillin-clav 875-125 mg Tablet 1 TAB PEG-TUBE ×2 (08:34→18:29)
[2024-05-29] MEDS: levothyroxine 137 mcg Tablet PO (08:34)
[2024-05-29 12:00] VITALS: BP 124/86; PULSE 92; RESP 16; TEMP 36.7
--- NOTE | 2024-05-29 13:35 | P.NPUPN_ITS ---
Subjective NPU 2 Subjective: Patient presented today reporting that she is doing okay. She continues to work with the social work team on options for discharge once the level 2 was complete they would allow for her to wait placement while in a safe environment. Her ability for self-care and self preservation independently is a great concern which she understands and so we are trying to find an alternative to staying in the hospital but also to [facility] until the actual placement for the level 2. She denies any side effects to medication. Mental Status Exam 2 MSE Comments: This is an obese white female in hospital scrubs with limited grooming and eye contact. No abnormal movements except mild psychomotor retardation. Cooperative with exam in no acute distress. Speech was slightly decreased rate but normal volume and she showed evidence of significant dysarthria and she was limited in her ability to communicate verbally. There was evidence of facial asymmetry. Her mood was described as okay (2 thumbs up) Her affect appeared restricted in range. Her thought process was linear and logical as she was able to answer questions by writing them down. Her thought content showed no evidence of homicidal or suicidal ideation. Also she did not appear to be responding to internal stimuli. There was no clear evidence of delusional thinking. Attention and concentration appeared intact and her recent and remote memory appeared grossly intact but none were formally tested.. Her insight was limited. Her judgment was fair. Her impulse control appeared limited at this time. Vitals/I&O/Wt Last Vital Signs Temp 98.0 F 05/29/24 12:00 Pulse 92 05/29/24 12:00 Resp 16 05/29/24 12:00 BP 124/86 05/29/24 12:00 Pulse Ox 98 05/29/24 06:00 O2 Del Method Room Air 05/29/24 06:00 Data NPU 05/26/24 09:02 05/26/24 09:02 A&P Assessment and plan (1) Major depressive disorder, recurrent episode, moderate with anxious distress: (2) Chronic post-traumatic stress disorder: (3) Panic disorder without agoraphobia: Plan 38-year-old female admitted with suicidal ideation with a history of major depressive disorder and PTSD currently on 96-hour hold returning in less than 24 hours 1.? Encourage individual, group and milieu therapy. 2.? Recommend sober living treatment at the highest level of care to which the patient is willing to commit 3.??Continue Prozac 60mg daily through tube. Discharge to [facility] not an option given complexity of medical treatment needed. She is currently homeless but had been living with her partner and we are working with them to provide some support for her while she awaits her placement once level 2 has been established. 4.? Continue every 15 minute checks for safety? 5.??Will attempt to gather collateral information, will complete swallowing study, Continue speech therapy. 6. Consider placement in continued medical care facility as patient homeless and cannot go to [facility] with her needs at home with rehabilitation s/p craniotomy. Will talk with her about the prospect of returning to her previous residence while she awaits placement for the level 2. Involuntary Hold Information 2 96 Hour Hold: 96 Hour Involuntary Admission: Yes 96 Hour Hold Ending Date: 05/29/24 96 Hour Hold Ending Time: 17:10 Other Hold: Hold End Date: 05/29/24 Attestations NPU 2 Medical Necessity Statement*: Inpatient hospitalization is medically necessary and the clinically appropriate intervention at this time.? We will monitor/initiate medications and make changes as indicated.?? The patient?s likely length of stay 4-6 days. Coding Level of Care Code Acute Code for Chg Fwd Diagnoses Major depressive disorder, recurrent episode, moderate with anxious distress F33.1 Chronic post-traumatic stress disorder F43.12 Panic disorder without agoraphobia F41.0
[2024-05-29 14:00] VITALS: BP 109/79; PULSE 115; RESP 16; TEMP 36.8; O2SAT 97
[2024-05-29 16:00] VITALS: BP 109/79; PULSE 115; RESP 16; TEMP 36.8
[2024-05-29 19:46] VITALS: BP 128/80; PULSE 128; RESP 16; TEMP 36.9; O2SAT 99
[2024-05-29] MEDS: cyclobenzaprine 10 mg Tablet PO (20:36)
[2024-05-29] MEDS: guaiFENesin-dextromethorphan UDC 10 mL PO (20:36)
[2024-05-30 06:00] VITALS: BP 109/65; PULSE 110; RESP 16; TEMP 36.7; O2SAT 96
[2024-05-30] MEDS: diclofenac 75 mg DR Tablet PO (07:47)
[2024-05-30] MEDS: amoxicillin-clav 875-125 mg Tablet 1 TAB PEG-TUBE ×2 (07:49→17:32)
[2024-05-30] MEDS: fluoxetine 20 mg Capsule 60 MG PEG-TUBE (07:49)
[2024-05-30] MEDS: gabapentin 400 mg Capsule PEG-TUBE ×3 (07:50→20:21)
[2024-05-30] MEDS: levothyroxine 137 mcg Tablet PO (07:50)
[2024-05-30] MEDS: artificial tears Op Soln 15 mL Btl 1 DROP EYE-LEFT ×4 (07:50→18:22)
[2024-05-30 12:00] VITALS: BP 109/65; PULSE 110; RESP 16; TEMP 36.7
[2024-05-30] MEDS: acetaminophen 325 mg Tablet 650 MG PO (13:28)
[2024-05-30 14:00] VITALS: BP 119/78; PULSE 108; RESP 18; TEMP 37; O2SAT 97
[2024-05-30] MEDS: calcium carbonate 500 mg Chew Tablet 1000 MG PO (16:23)
--- NOTE | 2024-05-30 17:56 | P.NPUPN_ITS ---
Subjective NPU 2 Subjective: Patient presented today reporting that she is doing better each day. We discussed the plan to continue the level 2 process but she is working with the social work team on possible alternative scenarios for the period of time between initiation of the level 2 and placement. She denied any side effects or medication. Mental Status Exam 2 MSE Comments: This is an obese white female in hospital scrubs with limited grooming and eye contact. No abnormal movements except mild psychomotor retardation. Cooperative with exam in no acute distress. Speech was slightly decreased rate but normal volume and she showed evidence of significant dysarthria and she was limited in her ability to communicate verbally. There was evidence of facial asymmetry. Her mood was described as okay (2 thumbs up) Her affect appeared restricted in range. Her thought process was linear and logical as she was able to answer questions by writing them down. Her thought content showed no evidence of homicidal or suicidal ideation. Also she did not appear to be responding to internal stimuli. There was no clear evidence of delusional thinking. Attention and concentration appeared intact and her recent and remote memory appeared grossly intact but none were formally tested.. Her insight was limited. Her judgment was fair. Her impulse control appeared limited at this time. Vitals/I&O/Wt Last Vital Signs Temp 98.6 F 05/30/24 14:00 Pulse 108 H 05/30/24 14:00 Resp 18 05/30/24 14:00 BP 119/78 05/30/24 14:00 Pulse Ox 97 05/30/24 14:00 O2 Del Method Room Air 05/30/24 06:00 Data NPU 05/26/24 09:02 05/26/24 09:02 A&P Assessment and plan (1) Major depressive disorder, recurrent episode, moderate with anxious distress: (2) Chronic post-traumatic stress disorder: (3) Panic disorder without agoraphobia: Plan 38-year-old female admitted with suicidal ideation with a history of major depressive disorder and PTSD currently on 96-hour hold returning in less than 24 hours 1.? Encourage individual, group and milieu therapy. 2.? Recommend sober living treatment at the highest level of care to which the patient is willing to commit 3.??Continue Prozac 60mg daily through tube. Discharge to penitentiary not an option given complexity of medical treatment needed. She is currently homeless but had been living with her partner and we are working with them to provide some support for her while she awaits her placement once level 2 has been established. 4.? Continue every 15 minute checks for safety? 5.??Will attempt to gather collateral information, will complete swallowing study, Continue speech therapy. 6. Consider placement in continued medical care facility as patient homeless and cannot go to penitentiary with her needs at home with rehabilitation s/p craniotomy. Will talk with her about the prospect of returning to her previous residence while she awaits placement for the level 2. Involuntary Hold Information 2 96 Hour Hold: 96 Hour Involuntary Admission: Yes 96 Hour Hold Ending Date: 05/29/24 96 Hour Hold Ending Time: 17:10 Other Hold: Hold End Date: 05/29/24 Attestations NPU 2 Medical Necessity Statement*: Inpatient hospitalization is medically necessary and the clinically appropriate intervention at this time.? We will monitor/initiate medications and make changes as indicated.?? The patient?s likely length of stay 3-5 days. Coding Level of Care Code Acute Code for Chg Fwd Diagnoses Major depressive disorder, recurrent episode, moderate with anxious distress F33.1 Chronic post-traumatic stress disorder F43.12 Panic disorder without agoraphobia F41.0
[2024-05-30] MEDS: ibuprofen 600 mg Tablet PO (20:21)
[2024-05-30] MEDS: trazodone 50 mg Tablet PO (20:21)
[2024-05-30] MEDS: cyclobenzaprine 10 mg Tablet PO (20:22)
[2024-05-30 20:53] VITALS: BP 118/59; PULSE 115; RESP 16; TEMP 37.3; O2SAT 96
[2024-05-31 06:00] VITALS: BP 112/68; PULSE 111; RESP 16; TEMP 36.8; O2SAT 96
[2024-05-31] MEDS: amoxicillin-clav 875-125 mg Tablet 1 TAB PEG-TUBE ×2 (07:52→17:34)
[2024-05-31] MEDS: levothyroxine 137 mcg Tablet PO (07:53)
[2024-05-31] MEDS: gabapentin 400 mg Capsule PEG-TUBE ×3 (07:53→20:16)
[2024-05-31] MEDS: ibuprofen 600 mg Tablet PO ×2 (07:53→16:13)
[2024-05-31] MEDS: fluoxetine 20 mg Capsule 60 MG PEG-TUBE (07:53)
[2024-05-31 08:00] VITALS: BP 112/68; PULSE 111; RESP 16; TEMP 36.8
[2024-05-31 12:00] VITALS: BP 112/68; PULSE 111; RESP 16; TEMP 36.8
[2024-05-31 14:00] VITALS: BP 139/87; PULSE 115; RESP 18; TEMP 37.2; O2SAT 95
[2024-05-31 20:12] VITALS: BP 123/70; PULSE 113; RESP 17; TEMP 37.6; O2SAT 95
[2024-05-31] MEDS: artificial tears Op Soln 15 mL Btl 1 DROP EYE-LEFT (20:15)
[2024-05-31] MEDS: acetaminophen 325 mg Tablet 650 MG PO (20:16)
[2024-05-31] MEDS: cyclobenzaprine 10 mg Tablet PO (20:17)
[2024-05-31] MEDS: trazodone 50 mg Tablet PO (20:17)
--- NOTE | 2024-05-31 21:29 | W.PM.NPUPNS ---
Subjective NPU Subjective: Patient presents today continuing to report no new issues and openness to go to whichever facility is identified. We continue to work with her family and they continue to deny any of them close or distant being able to be supportive and accept her until transferred to the permanent arrangement occurs. She continues to work with the social work team on any options in the community from a residential standpoint without success. She denied any side effects to her medication. Mental Status Exam MSE Comments: This is an obese white female in hospital scrubs with limited grooming and eye contact. No abnormal movements except mild psychomotor retardation. Cooperative with exam in no acute distress. Speech was slightly decreased rate but normal volume and she showed evidence of significant dysarthria and she was limited in her ability to communicate verbally. There was evidence of facial asymmetry. Her mood was described as okay (2 thumbs up) Her affect appeared restricted in range. Her thought process was linear and logical as she was able to answer questions by writing them down. Her thought content showed no evidence of homicidal or suicidal ideation. Also she did not appear to be responding to internal stimuli. There was no clear evidence of delusional thinking. Attention and concentration appeared intact and her recent and remote memory appeared grossly intact but none were formally tested.. Her insight was limited. Her judgment was fair. Her impulse control appeared limited at this time. Vitals/I&O/Wt Last Vital Signs Temp 99.7 F H 05/31/24 20:12 Pulse 113 H 05/31/24 20:12 Resp 17 05/31/24 20:12 BP 123/70 05/31/24 20:12 Pulse Ox 95 05/31/24 20:12 O2 Del Method Room Air 05/31/24 06:00 Data NPU 05/26/24 09:02 05/26/24 09:02 A&P Assessment and plan (1) Major depressive disorder, recurrent episode, moderate with anxious distress: (2) Chronic post-traumatic stress disorder: (3) Panic disorder without agoraphobia: Plan 38-year-old female admitted with suicidal ideation with a history of major depressive disorder and PTSD currently on 96-hour hold returning in less than 24 hours 1.? Encourage individual, group and milieu therapy. 2.? Recommend sober living treatment at the highest level of care to which the patient is willing to commit 3.??Continue Prozac 60mg daily through tube. Discharge to penitentiary not an option given complexity of medical treatment needed. She is currently homeless but had been living with her partner and we are working with them to provide some support for her while she awaits her placement once level 2 has been established. 4.? Continue every 15 minute checks for safety? 5.??Will attempt to gather collateral information, will complete swallowing study, Continue speech therapy. 6. Consider placement in [facility] as patient homeless and cannot go to penitentiary with her needs at home with rehabilitation s/p craniotomy. Will talk with her about the prospect of returning to her previous residence while she awaits placement for the level 2. Involuntary Hold Information 96 Hour Hold: 96 Hour Involuntary Admission: Yes 96 Hour Hold Ending Date: 05/29/24 96 Hour Hold Ending Time: 17:10 Other Hold: Hold End Date: 05/29/24 Attestations NPU Medical Necessity Statement*: Inpatient hospitalization is medically necessary and the clinically appropriate intervention at this time.? We will monitor/initiate medications and make changes as indicated.?? The patient?s likely length of stay 3-5 days. Coding Level of Care Code Acute Code for Chg Fwd Diagnoses Major depressive disorder, recurrent episode, moderate with anxious distress F33.1 Chronic post-traumatic stress disorder F43.12 Panic disorder without agoraphobia F41.0
[2024-06-01 06:00] VITALS: BP 109/69; PULSE 111; RESP 16; TEMP 36.8; O2SAT 94
[2024-06-01] MEDS: acetaminophen 325 mg Tablet 650 MG PO ×2 (07:24→12:29)
[2024-06-01] MEDS: artificial tears Op Soln 15 mL Btl 1 DROP EYE-LEFT ×4 (07:27→22:06)
[2024-06-01 08:00] VITALS: BP 109/69; PULSE 111; RESP 16; TEMP 36.8
[2024-06-01] MEDS: gabapentin 400 mg Capsule PEG-TUBE ×3 (08:33→20:32)
[2024-06-01] MEDS: fluoxetine 20 mg Capsule 60 MG PEG-TUBE (08:33)
[2024-06-01] MEDS: hyDROXYzine 25 mg Capsule 50 MG PEG-TUBE (08:33)
[2024-06-01] MEDS: amoxicillin-clav 875-125 mg Tablet 1 TAB PEG-TUBE ×2 (08:34→18:07)
[2024-06-01] MEDS: fluticasone nasal spray 16gm Btl 1 SPRAY NASAL (11:02)
[2024-06-01 12:00] VITALS: BP 109/69; PULSE 111; RESP 16; TEMP 36.8
--- NOTE | 2024-06-01 12:20 | P.NPUPN_ITS ---
Subjective NPU 2 Subjective: Patient presented today reporting that she is doing okay. We discussed the importance of us getting her level 2 back because we do have some possible leads for placement. She did report having a painful nodule in her abdomen and after evaluation we discussed the risks, benefits and alternatives of consulting medicine to evaluate and she understood and agreed to proceed as is documented in this note. She endorsed feeling okay with her psychiatric medication and denied any side effects of those medications. Mental Status Exam 2 MSE Comments: This is an obese white female in hospital scrubs with limited grooming and eye contact. No abnormal movements except mild psychomotor retardation. Cooperative with exam in no acute distress. Speech was slightly decreased rate but normal volume and she showed evidence of significant dysarthria and she was limited in her ability to communicate verbally. There was evidence of facial asymmetry. Her mood was described as okay (2 thumbs up) Her affect appeared restricted in range. Her thought process was linear and logical as she was able to answer questions by writing them down. Her thought content showed no evidence of homicidal or suicidal ideation. Also she did not appear to be responding to internal stimuli. There was no clear evidence of delusional thinking. Attention and concentration appeared intact and her recent and remote memory appeared grossly intact but none were formally tested.. Her insight was limited. Her judgment was fair. Her impulse control appeared limited at this time. Vitals/I&O/Wt Last Vital Signs Temp 98.2 F 06/01/24 08:00 Pulse 111 H 06/01/24 08:00 Resp 16 06/01/24 08:00 BP 109/69 06/01/24 08:00 Pulse Ox 94 06/01/24 06:00 O2 Del Method Room Air 05/31/24 06:00 Data NPU 05/26/24 09:02 05/26/24 09:02 A&P Assessment and plan (1) Major depressive disorder, recurrent episode, moderate with anxious distress: (2) Chronic post-traumatic stress disorder: (3) Panic disorder without agoraphobia: Plan 38-year-old female admitted with suicidal ideation with a history of major depressive disorder and PTSD currently on 96-hour hold returning in less than 24 hours 1.? Encourage individual, group and milieu therapy. 2.? Recommend sober living treatment at the highest level of care to which the patient is willing to commit 3.??Continue Prozac 60mg daily through tube. Discharge to penitentiary not an option given complexity of medical treatment needed. She is currently homeless but had been living with her partner and we are working with them to provide some support for her while she awaits her placement once level 2 has been established. 4.? Continue every 15 minute checks for safety? 5.??Will attempt to gather collateral information, will complete swallowing study, Continue speech therapy. 6. Consider placement in continued medical care facility as patient homeless and cannot go to penitentiary with her needs at home with rehabilitation s/p craniotomy. Will talk with her about the prospect of returning to her previous residence while she awaits placement for the level 2. 7. Patient reported painful nodule and lower left quadrant of abdomen. Reconsulted medicine to investigate possible etiologies. Involuntary Hold Information 2 96 Hour Hold: 96 Hour Involuntary Admission: Yes 96 Hour Hold Ending Date: 05/29/24 96 Hour Hold Ending Time: 17:10 Attestations NPU 2 Medical Necessity Statement*: Inpatient hospitalization is medically necessary and the clinically appropriate intervention at this time.? We will monitor/initiate medications and make changes as indicated.?? The patient?s likely length of stay 3-5 days. Coding Level of Care Code Acute Code for Chg Fwd Diagnoses Major depressive disorder, recurrent episode, moderate with anxious distress F33.1 Chronic post-traumatic stress disorder F43.12 Panic disorder without agoraphobia F41.0
[2024-06-01 14:00] VITALS: BP 129/83; PULSE 100; RESP 18; TEMP 36.9; O2SAT 94
--- NOTE | 2024-06-01 14:34 | CTR_ITS ---
PROCEDURE INFORMATION: Exam: CT Abdomen And Pelvis With Contrast Exam date and time: 06/01/2024 3:25 PM Age: 38 years old Clinical indication: Abdominal pain; Localized; Left lower quadrant (llq); Additional info: Llq pain TECHNIQUE: Imaging protocol: Computed tomography of the abdomen and pelvis with contrast. Radiation optimization: All CT scans at this facility use at least one of these dose optimization techniques: automated exposure control; mA and/or kV adjustment per patient size (includes targeted exams where dose is matched to clinical indication); or iterative reconstruction. Contrast material: OMNI 350; Contrast volume: 100 ml; Contrast route: INTRAVENOUS (IV); COMPARISON: CR XR KUB [id number] 09/24/2020 10:39 AM RADIATION DOSE METRICS: Total DLP (mGy-cm): 862.86 FINDINGS: Lungs: Curvilinear bibasilar scarring or atelectasis. Liver: Normal. No mass. Gallbladder and biliary ducts: Cholecystectomy. No ductal dilation. Pancreas: Normal. No ductal dilation. Spleen: Normal. No splenomegaly. Adrenal glands: Normal. No mass. Kidneys and ureters: Normal. No hydronephrosis. Stomach and bowel: PEG tube noted in the stomach. Stomach is distended. No obstruction. No mucosal thickening. Moderate colonic stool burden. Appendix: An appendicolith is noted at the base of the appendix. There is questionable subtle periappendiceal inflammation and mild peritoneal wall thickening adjacent to the appendix. Intraperitoneal space: Unremarkable. No free air. No significant fluid collection. Vasculature: Unremarkable. No abdominal aortic aneurysm. Lymph nodes: Unremarkable. No enlarged lymph nodes. Urinary bladder: Unremarkable as visualized. Reproductive: Hysterectomy. Bones/joints: No acute fracture. Soft tissues: Unremarkable. CT/CT abdomen pelvis w con* [id number] IMPRESSION: Appendicolith at the base of the appendix. Questionable subtle inflammatory changes around the appendix and peritoneum which brings consideration for acute appendicitis in the appropriate clinical context. Otherwise, no acute findings.
--- NOTE | 2024-06-01 15:11 | PC.NURSE ---
off unit at [address] iwth staff
[2024-06-01] MEDS: iohexol 350 mg/mL 500 mL Btl (per mL) IV (15:33)
--- NOTE | 2024-06-01 15:36 | PC.NURSE ---
back on unit at 1536
[2024-06-01 16:00] VITALS: BP 129/83; PULSE 100; RESP 18; TEMP 36.9
[2024-06-01 16:17] LABS: Basophils % 0.4 %; Eosinophils # 0.2 10^3/uL (0.0-0.8); Eosinophils % 1.9 %; Hematocrit 38.9 % (36-47); Lymphocytes # 1.9 10^3/uL (0.8-4.8); Lymphocytes % 19.8 %; Mean Corpuscular HGB Conc 30.1 g/dL (30-55); Mean Corpuscular Hemoglobin 26.3 pg (27-33); Mean Corpuscular Volume 87.4 fl (85-98); Mean Platelet Volume 10.6 fL (7.4-10.4); Monocytes # 0.6 10^3/uL (0.2-0.9); Monocytes % 6.3 %; Neutrophils % 71.4 %; Nucleated Red Blood Cells % 0 %; Platelet Count 218 10^3/cmm (157-399); Red Blood Count 4.45 10^6/uL (3.85-5.65); Red Cell Distribution Width 14.9 % (12.1-15.1); White Blood Count 9.53 10^3/uL (3.29-11.43)
[2024-06-01] MEDS: ibuprofen 600 mg Tablet PO (16:25)
[2024-06-01 16:36] LABS: Alanine Aminotransferase 64 U/L (0-33); Albumin Level 3.9 g/dL (3.5-5.2); Alkaline Phosphatase 148 U/L (35-105); Anion Gap 14.2 (5-19); Aspartate Amino Transferase 36 U/L (0-32); Blood Urea Nitrogen 12 mg/dL (6-20); Calcium 9.5 mg/dL (8.5-10.5); Carbon Dioxide 28 mmol/L (22-29); Chloride 100 mmol/L (98-107); Creatinine Clr Calc Pharmacy 206.4347; Globulin 3.4 g/dL (1.3-4.6); Glomerular Filtration Rate 177.7 mL/min (90-130); Glucose 80 mg/dL (65-115); Osmolality Calculated 285 mOsm/kg (285-295); Potassium 4.2 mmol/L (3.5-5.1); Sodium 138 mmol/L (136-145); Total Bilirubin 0.2 mg/dL (0.15-1.2); Total Protein 7.3 g/dL (6.6-8.7)
[2024-06-01 16:37] LABS: Lactic Sepsis W/Reflex 1.5 mmol/L (0.5-2.2)
--- NOTE | 2024-06-01 16:47 | W.PM.EVENTAC ---
Event Note Event Note: Asked to see patient regarding the nodule on the left side of the abdomen. She was coming back from CT scan which had been ordered by another physician. There have been no indication of any fever, nausea. I examined the patient briefly noting no tachycardia, regular heart rate, lungs clear, abdomen soft and nontender. She had tenderness in the left mid quadrant, overlying a palpable nodule in the subcutaneous fat. This is most consistent with a cyst or fat necrosis. No overlying erythema. No indication of abscess. This was not delineated on the CT scan, which results are back. CT scan did show appendicolith with questionable inflammatory changes. She has absolutely no tenderness on the right side, and without any clinical evidence of appendicitis would continue to observe at this point. No further workup regarding the left subcutaneous fat nodule is needed.
[2024-06-01] MEDS: cyclobenzaprine 10 mg Tablet PO (20:32)
[2024-06-01] MEDS: trazodone 50 mg Tablet PO (20:33)
[2024-06-01] MEDS: hyDROXYzine 25 mg Capsule 50 MG PO (20:33)
[2024-06-01 20:43] VITALS: BP 124/84; PULSE 119; RESP 18; TEMP 36.7; O2SAT 100
[2024-06-02 06:00] VITALS: BP 120/82; PULSE 113; RESP 16; TEMP 36.9; O2SAT 94
[2024-06-02] MEDS: acetaminophen 325 mg Tablet 650 MG PO ×2 (07:53→15:12)
[2024-06-02] MEDS: levothyroxine 137 mcg Tablet PO (07:54)
[2024-06-02] MEDS: amoxicillin-clav 875-125 mg Tablet 1 TAB PEG-TUBE ×2 (07:54→17:27)
[2024-06-02] MEDS: gabapentin 400 mg Capsule PEG-TUBE ×3 (07:54→21:10)
[2024-06-02] MEDS: fluoxetine 20 mg Capsule 60 MG PEG-TUBE (07:54)
[2024-06-02] MEDS: artificial tears Op Soln 15 mL Btl 1 DROP EYE-LEFT ×4 (07:55→21:10)
[2024-06-02 08:00] VITALS: BP 120/82; PULSE 113; RESP 16; TEMP 36.9
--- NOTE | 2024-06-02 09:25 | P.NPUPN_ITS ---
Subjective NPU 2 Subjective: Patient presented today reporting that she is doing okay but just worried about getting laboratory studies. Plus she wants her labs only taken on her right arm. She understands that we are awaiting her possible placement with her level 2. And looking for possible options that she can go to and await the actual placement after the level 2 is solidified. She denied any side effects to the medication. Mental Status Exam 2 MSE Comments: This is an obese white female in hospital scrubs with limited grooming and eye contact. No abnormal movements except mild psychomotor retardation. Cooperative with exam in no acute distress. Speech was slightly decreased rate but normal volume and she showed evidence of significant dysarthria and she was limited in her ability to communicate verbally. There was evidence of facial asymmetry. Her mood was described as okay (2 thumbs up) Her affect appeared restricted in range. Her thought process was linear and logical as she was able to answer questions by writing them down. Her thought content showed no evidence of homicidal or suicidal ideation. Also she did not appear to be responding to internal stimuli. There was no clear evidence of delusional thinking. Attention and concentration appeared intact and her recent and remote memory appeared grossly intact but none were formally tested.. Her insight was limited. Her judgment was fair. Her impulse control appeared limited at this time. Vitals/I&O/Wt Last Vital Signs Temp 98.5 F 06/02/24 06:00 Pulse 113 H 06/02/24 06:00 Resp 16 06/02/24 06:00 BP 120/82 06/02/24 06:00 Pulse Ox 94 06/02/24 06:00 O2 Del Method Room Air 06/01/24 14:00 Data NPU 06/02/24 16:59 06/01/24 15:52 A&P Assessment and plan (1) Major depressive disorder, recurrent episode, moderate with anxious distress: (2) Chronic post-traumatic stress disorder: (3) Panic disorder without agoraphobia: Plan 38-year-old female admitted with suicidal ideation with a history of major depressive disorder and PTSD currently on 96-hour hold returning in less than 24 hours 1.? Encourage individual, group and milieu therapy. 2.? Recommend sober living treatment at the highest level of care to which the patient is willing to commit 3.??Continue Prozac 60mg daily through tube. Discharge to retirement not an option given complexity of medical treatment needed. She is currently homeless but had been living with her partner and we are working with them to provide some support for her while she awaits her placement once level 2 has been established. 4.? Continue every 15 minute checks for safety? 5.??Will attempt to gather collateral information, will complete swallowing study, Continue speech therapy. 6. Consider placement in continued medical care facility as patient homeless and cannot go to retirement with her needs at home with rehabilitation s/p craniotomy. Will talk with her about the prospect of returning to her previous residence while she awaits placement for the level 2. 7. Patient reported painful nodule and lower left quadrant of abdomen. Reconsulted medicine to investigate possible etiologies. We will continue to follow hospitalist recommendation. Involuntary Hold Information 2 96 Hour Hold: 96 Hour Involuntary Admission: Yes 96 Hour Hold Ending Date: 05/29/24 96 Hour Hold Ending Time: 17:10 Attestations NPU 2 Medical Necessity Statement*: Inpatient hospitalization is medically necessary and the clinically appropriate intervention at this time.? We will monitor/initiate medications and make changes as indicated.?? The patient?s likely length of stay 3-5 days. Coding Level of Care Code Acute Code for Chg Fwd Diagnoses Major depressive disorder, recurrent episode, moderate with anxious distress F33.1 Chronic post-traumatic stress disorder F43.12 Panic disorder without agoraphobia F41.0
[2024-06-02] MEDS: ibuprofen 600 mg Tablet PO ×2 (10:23→17:28)
[2024-06-02 12:00] VITALS: BP 114/68; PULSE 115; RESP 17; TEMP 37.2
[2024-06-02 14:00] VITALS: BP 114/68; PULSE 115; RESP 17; TEMP 37.2; O2SAT 94
[2024-06-02 16:00] VITALS: BP 114/68; PULSE 115; RESP 17; TEMP 37.2
[2024-06-02 17:04] LABS: Basophils % 0.4 %; Eosinophils # 0.2 10^3/uL (0.0-0.8); Eosinophils % 1.5 %; Lymphocytes # 1.9 10^3/uL (0.8-4.8); Lymphocytes % 17.1 %; Mean Corpuscular HGB Conc 29.7 g/dL (30-55); Mean Corpuscular Hemoglobin 25.5 pg (27-33); Mean Corpuscular Volume 85.8 fl (85-98); Mean Platelet Volume 10.8 fL (7.4-10.4); Monocytes # 0.7 10^3/uL (0.2-0.9); Monocytes % 5.9 %; Neutrophils # 8.27 10^3/uL (1.8-7.7); Neutrophils % 74.8 %; Nucleated Red Blood Cells % 0 %; Platelet Count 241 10^3/cmm (157-399); Red Blood Count 4.43 10^6/uL (3.85-5.65); Red Cell Distribution Width 14.9 % (12.1-15.1); White Blood Count 11.05 10^3/uL (3.29-11.43)
[2024-06-02 20:29] VITALS: BP 120/73; PULSE 113; RESP 16; TEMP 37.1; O2SAT 93
[2024-06-02] MEDS: hyDROXYzine 25 mg Capsule 50 MG PEG-TUBE (21:10)
[2024-06-02] MEDS: trazodone 50 mg Tablet PO (21:10)
[2024-06-02] MEDS: cyclobenzaprine 10 mg Tablet PO (21:10)
[2024-06-03] VITALS (7 sets, daily range): BP systolic 97–120; BP diastolic 65–75; PULSE 106–114; RESP 16–17; TEMP 36.8–37.1; O2SAT 93–95
[2024-06-03] MEDS: guaiFENesin-dextromethorphan UDC 10 mL PO ×2 (09:05→20:21)
[2024-06-03] MEDS: ibuprofen 600 mg Tablet PO ×2 (09:05→18:32)
[2024-06-03] MEDS: amoxicillin-clav 875-125 mg Tablet 1 TAB PEG-TUBE (09:05)
[2024-06-03] MEDS: diclofenac 75 mg DR Tablet PO (09:06)
[2024-06-03] MEDS: artificial tears Op Soln 15 mL Btl 1 DROP EYE-LEFT (09:06)
[2024-06-03] MEDS: fluoxetine 20 mg Capsule 60 MG PEG-TUBE (09:06)
[2024-06-03] MEDS: levothyroxine 137 mcg Tablet PO (09:06)
[2024-06-03] MEDS: gabapentin 400 mg Capsule PEG-TUBE ×3 (09:06→20:22)
--- NOTE | 2024-06-03 10:37 | XRR_ITS ---
PROCEDURE INFORMATION: Exam: XR Chest Exam date and time: 06/03/2024 3:03 PM Age: 38 years old Clinical indication: Cough; Additional info: Possible pne TECHNIQUE: Imaging protocol: Radiologic exam of the chest. Views: 1 view. COMPARISON: CR (CHEST, ) 05/26/2024 7:31 AM FINDINGS: Lungs: Bibasilar atelectasis/scarring is similar to prior. No new airspace disease. Pleural spaces: Unremarkable. No pleural effusion. No pneumothorax. Heart/Mediastinum: Unremarkable. No cardiomegaly. Bones/joints: Unremarkable. XR/XR chest 1V portable [id number] IMPRESSION: No acute cardiopulmonary findings.
--- NOTE | 2024-06-03 11:24 | W.PM.NPUPNS ---
Subjective NPU Subjective: Patient presented today reporting that she is doing okay. She reports she is doing better and the assistance of the hospitalist was appreciated as she is not having additional concerns. We discussed finding out from the social work team tomorrow whether or not the lesions that we have have manifested and awaiting her level 2 being processed. She denied any side effects to her medications. Mental Status Exam MSE Comments: This is an obese white female in hospital scrubs with limited grooming and eye contact. No abnormal movements except mild psychomotor retardation. Cooperative with exam in no acute distress. Speech was slightly decreased rate but normal volume and she showed evidence of significant dysarthria and she was limited in her ability to communicate verbally. There was evidence of facial asymmetry. Her mood was described as okay (2 thumbs up) Her affect appeared restricted in range. Her thought process was linear and logical as she was able to answer questions by writing them down. Her thought content showed no evidence of homicidal or suicidal ideation. Also she did not appear to be responding to internal stimuli. There was no clear evidence of delusional thinking. Attention and concentration appeared intact and her recent and remote memory appeared grossly intact but none were formally tested.. Her insight was limited. Her judgment was fair. Her impulse control appeared limited at this time. Vitals/I&O/Wt Last Vital Signs Temp 98.2 F 06/03/24 08:00 Pulse 113 H 06/03/24 08:00 Resp 16 06/03/24 08:00 BP 115/65 06/03/24 08:00 Pulse Ox 93 06/03/24 06:00 O2 Del Method Room Air 06/01/24 14:00 Weight last 48 hrs Weight 94.166 kg Data NPU 06/03/24 11:28 06/03/24 11:28 A&P Assessment and plan (1) Major depressive disorder, recurrent episode, moderate with anxious distress: (2) Chronic post-traumatic stress disorder: (3) Panic disorder without agoraphobia: Plan 38-year-old female admitted with suicidal ideation with a history of major depressive disorder and PTSD currently on 96-hour hold returning in less than 24 hours 1.? Encourage individual, group and milieu therapy. 2.? Recommend sober living treatment at the highest level of care to which the patient is willing to commit 3.??Continue Prozac 60mg daily through tube. Discharge to retirement not an option given complexity of medical treatment needed. She is currently homeless but had been living with her partner and we are working with them to provide some support for her while she awaits her placement once level 2 has been established. 4.? Continue every 15 minute checks for safety? 5.??Will attempt to gather collateral information, will complete swallowing study, Continue speech therapy. 6. Consider placement in continued medical care facility as patient homeless and cannot go to retirement with her needs at home with rehabilitation s/p craniotomy. Will talk with her about the prospect of returning to her previous residence while she awaits placement for the level 2. 7. Patient reported painful nodule and lower left quadrant of abdomen. Reconsulted medicine to investigate possible etiologies. We will continue to follow hospitalist recommendation. Involuntary Hold Information 96 Hour Hold: 96 Hour Involuntary Admission: Yes 96 Hour Hold Ending Date: 05/29/24 96 Hour Hold Ending Time: 17:10 Attestations NPU Medical Necessity Statement*: Inpatient hospitalization is medically necessary and the clinically appropriate intervention at this time.? We will monitor/initiate medications and make changes as indicated.?? The patient?s likely length of stay 3-5 days. Coding Level of Care Code Acute Code for Chg Fwd Diagnoses Major depressive disorder, recurrent episode, moderate with anxious distress F33.1 Chronic post-traumatic stress disorder F43.12 Panic disorder without agoraphobia F41.0
[2024-06-03 11:55] LABS: Basophils # 0.1 10^3/uL (0.0-0.1); Basophils % 0.8 %; Eosinophils # 0.1 10^3/uL (0.0-0.8); Eosinophils % 2.2 %; Hematocrit 39.6 % (36-47); Lymphocytes # 1.9 10^3/uL (0.8-4.8); Lymphocytes % 29.3 %; Mean Corpuscular HGB Conc 29.8 g/dL (30-55); Mean Corpuscular Hemoglobin 25.4 pg (27-33); Mean Corpuscular Volume 85.2 fl (85-98); Mean Platelet Volume 11.6 fL (7.4-10.4); Monocytes # 0.5 10^3/uL (0.2-0.9); Monocytes % 7.5 %; Neutrophils # 3.85 10^3/uL (1.8-7.7); Nucleated Red Blood Cells % 0 %; Platelet Count 219 10^3/cmm (157-399); Red Blood Count 4.65 10^6/uL (3.85-5.65); Red Cell Distribution Width 15.3 % (12.1-15.1); White Blood Count 6.41 10^3/uL (3.29-11.43)
[2024-06-03 12:00] LABS: Alanine Aminotransferase 56 U/L (0-33); Albumin Level 3.6 g/dL (3.5-5.2); Alkaline Phosphatase 139 U/L (35-105); Anion Gap 15.2 (5-19); Aspartate Amino Transferase 32 U/L (0-32); Blood Urea Nitrogen 11 mg/dL (6-20); Calcium 9.9 mg/dL (8.5-10.5); Carbon Dioxide 28 mmol/L (22-29); Chloride 98 mmol/L (98-107); Creatinine Clr Calc Pharmacy 210.1131; Globulin 3.1 g/dL (1.3-4.6); Glomerular Filtration Rate 177.7 mL/min (90-130); Glucose 89 mg/dL (65-115); Osmolality Calculated 283 mOsm/kg (285-295); Potassium 4.2 mmol/L (3.5-5.1); Sodium 137 mmol/L (136-145); Total Bilirubin 0.2 mg/dL (0.15-1.2); Total Protein 6.7 g/dL (6.6-8.7)
[2024-06-03 12:07] LABS: Procalcitonin 0.06 ng/mL (0-0.5)
--- NOTE | 2024-06-03 13:45 | P.PN_ITS ---
Subjective 2 Subjective: abdominal pain improved, seen today says she has been coughing, non productive denies fever labs reviewed Vitals/I&O/Wt Last Vital Signs Temp 98.2 F 06/03/24 12:00 Pulse 113 H 06/03/24 12:00 Resp 16 06/03/24 12:00 BP 115/65 06/03/24 12:00 Pulse Ox 93 06/03/24 06:00 O2 Del Method Room Air 06/01/24 14:00 Weight last 48 hrs Weight 94.166 kg Physical Exam 2 Const: COMMON NORMALS: no acute distress ORIENTATION/CONSCIOUSNESS: Yes awake, Yes oriented to person and Yes oriented to place; not oriented to time HENMT: COMMON NORMALS: normocephalic HEAD & SCALP: normocephalic Resp: COMMON NORMALS: normal respiratory effort, No retractions, No use of accessory muscles and clear to auscultation bilaterally AUSCULTATION: clear to auscultation bilaterally Cardio: COMMON NORMALS: regular rate, regular rhythm, S1 normal heart sound present and S2 normal heart sound present RATE: regular rate RHYTHM: r egular rhythm HEART SOUNDS: S1 normal heart sound present and S2 normal heart sound present GI: COMMON NORMALS: Normal to inspection, nondistended, normoactive bowel sounds present, non-tender and no masses Extremity: COMMON NORMALS: no pedal edema Neuro: SENSORIUM/ORIENTATION: Yes oriented to person, Yes oriented to place and No oriented to time OTHER: Cannot discern any focal weakness, has good strength upper lower extremities does report unsteadiness on her feet Data 06/03/24 11:28 06/03/24 11:28 A&P Assessment and plan (1) Major depressive disorder, recurrent episode, moderate with anxious distress: (2) Hyperlipemia: Qualifiers: Hyperlipidemia type: mixed hyperlipidemia Qualified Code(s): E78.2 - Mixed hyperlipidemia (3) Hypothyroidism: Qualifiers: Hypothyroidism type: acquired Qualified Code(s): E03.9 - Hypothyroidism, unspecified (4) Cough: Plan - patient has been coughing - check xray today - procalcitonin 0.06 - no clinical evidence of pna - continue dysphagia diet - pt s/p resection of cerebellar mass. - cbc , no leukocytosis - if cxr negative, no further management required, continue to monitor for fever - monitor off antibiotics Attestations 2 Medical Necessity Statement*: defer to primary team Diagnoses Major depressive disorder, recurrent episode, moderate with anxious distress F33.1 Mixed hyperlipidemia E78.2 Hyperlipidemia type: mixed hyperlipidemia Acquired hypothyroidism E03.9 Hypothyroidism type: acquired Cough R05.9
[2024-06-03] MEDS: hyDROXYzine 25 mg Capsule 50 MG PO (20:22)
[2024-06-03] MEDS: acetaminophen 325 mg Tablet 650 MG PO (20:22)
[2024-06-03] MEDS: trazodone 50 mg Tablet PO (20:22)
[2024-06-04] MEDS: acetaminophen 325 mg Tablet 650 MG PO ×3 (05:21→20:04)
[2024-06-04 05:24] VITALS: BP 128/76; PULSE 129; RESP 18; TEMP 37; O2SAT 93
[2024-06-04] MEDS: artificial tears Op Soln 15 mL Btl 1 DROP EYE-LEFT ×3 (08:45→17:25)
[2024-06-04] MEDS: gabapentin 400 mg Capsule PEG-TUBE ×3 (08:46→20:04)
[2024-06-04] MEDS: levothyroxine 137 mcg Tablet PO (08:46)
[2024-06-04] MEDS: fluoxetine 20 mg Capsule 60 MG PEG-TUBE (08:46)
[2024-06-04] MEDS: phenol oral Spray 177 mL 3 SPRAY MUCOUS MEM (10:03)
[2024-06-04 14:00] VITALS: BP 125/88; PULSE 115; RESP 16; TEMP 36.6; O2SAT 95
--- NOTE | 2024-06-04 16:04 | P.NPUPN_ITS ---
Subjective NPU 2 Subjective: Patient presented today reporting that she was doing fine. Until CPS/protective services presented to discuss the situation with her children with her. She spent a considerable amount of time with them and have frustration about the situation as we understood it. She did report continued openness to be placed in the facilities that the social work team were exploring. She denied any side effects to the medication. Mental Status Exam 2 MSE Comments: This is an obese white female in hospital scrubs with limited grooming and eye contact. No abnormal movements except mild psychomotor retardation. Cooperative with exam in no acute distress. Speech was slightly decreased rate but normal volume and she showed evidence of significant dysarthria and she was limited in her ability to communicate verbally. There was evidence of facial asymmetry. Her mood was described as okay (2 thumbs up) Her affect appeared restricted in range. Her thought process was linear and logical as she was able to answer questions by writing them down. Her thought content showed no evidence of homicidal or suicidal ideation. Also she did not appear to be responding to internal stimuli. There was no clear evidence of delusional thinking. Attention and concentration appeared intact and her recent and remote memory appeared grossly intact but none were formally tested.. Her insight was limited. Her judgment was fair. Her impulse control appeared limited at this time. Vitals/I&O/Wt Last Vital Signs Temp 98 F 06/04/24 14:00 Pulse 115 H 06/04/24 14:00 Resp 16 06/04/24 14:00 BP 125/88 06/04/24 14:00 Pulse Ox 95 06/04/24 14:00 O2 Del Method Room Air 06/04/24 14:00 Weight last 48 hrs Weight 94.166 kg Data NPU 06/03/24 11:28 06/03/24 11:28 A&P Assessment and plan (1) Major depressive disorder, recurrent episode, moderate with anxious distress: (2) Chronic post-traumatic stress disorder: (3) Panic disorder without agoraphobia: Plan 38-year-old female admitted with suicidal ideation with a history of major depressive disorder and PTSD currently on 96-hour hold returning in less than 24 hours 1.? Encourage individual, group and milieu therapy. 2.? Recommend sober living treatment at the highest level of care to which the patient is willing to commit 3.??Continue Prozac 60mg daily through tube. Discharge to halfway not an option given complexity of medical treatment needed. She is currently homeless but had been living with her partner and we are working with them to provide some support for her while she awaits her placement once level 2 has been established. 4.? Continue every 15 minute checks for safety? 5.??Will attempt to gather collateral information, will complete swallowing study, Continue speech therapy. 6. Consider placement in continued medical care facility as patient homeless and cannot go to halfway with her needs at home with rehabilitation s/p craniotomy. Will talk with her about the prospect of returning to her previous residence while she awaits placement for the level 2. 7. Patient reported painful nodule and lower left quadrant of abdomen. Reconsulted medicine to investigate possible etiologies. We will continue to follow hospitalist recommendation. 8. Child protective services/DFS came today due to her 1 son going to a psychiatric facility and her ex significant other who has some custody reporting he does not want that son back. They met with her and brainstormed ways to manage her children safely and trying to get an understanding of what her trajectory is. Involuntary Hold Information 2 96 Hour Hold: 96 Hour Involuntary Admission: Yes 96 Hour Hold Ending Date: 05/29/24 96 Hour Hold Ending Time: 17:10 Attestations NPU 2 Medical Necessity Statement*: Inpatient hospitalization is medically necessary and the clinically appropriate intervention at this time.? We will monitor/initiate medications and make changes as indicated.?? The patient?s likely length of stay 2-4 days. Coding Level of Care Code Acute Code for Chg Fwd Diagnoses Major depressive disorder, recurrent episode, moderate with anxious distress F33.1 Chronic post-traumatic stress disorder F43.12 Panic disorder without agoraphobia F41.0
[2024-06-04] MEDS: hyDROXYzine 25 mg Capsule 50 MG PO (17:25)
[2024-06-04] MEDS: trazodone 50 mg Tablet PO (20:04)
[2024-06-04] MEDS: cyclobenzaprine 10 mg Tablet PO (20:04)
--- NOTE | 2024-06-04 20:36 | PC.NURSE ---
this nurse tech documented under Nova Rodriguez for 1900 rounding. charge nurse and bottle house quality control technician notified.
[2024-06-04 22:00] VITALS: BP 114/70; PULSE 119; RESP 17; TEMP 36.9; O2SAT 91
[2024-06-05] MEDS: acetaminophen 325 mg Tablet 650 MG PO ×3 (05:51→19:53)
[2024-06-05 06:00] VITALS: BP 119/79; PULSE 121; RESP 19; TEMP 37.2; O2SAT 90
[2024-06-05 08:00] VITALS: BP 119/79; PULSE 121; RESP 19; TEMP 37.2
[2024-06-05] MEDS: levothyroxine 137 mcg Tablet PO (08:18)
[2024-06-05] MEDS: fluticasone nasal spray 16gm Btl 1 SPRAY NASAL (08:18)
[2024-06-05] MEDS: fluoxetine 20 mg Capsule 60 MG PEG-TUBE (08:18)
[2024-06-05] MEDS: gabapentin 400 mg Capsule PEG-TUBE ×3 (08:18→19:53)
[2024-06-05] MEDS: ibuprofen 600 mg Tablet PO (08:22)
[2024-06-05] MEDS: phenol oral Spray 177 mL 3 SPRAY MUCOUS MEM (08:45)
[2024-06-05 14:00] VITALS: BP 134/74; PULSE 71; RESP 16; TEMP 36.6; O2SAT 98
--- NOTE | 2024-06-05 15:14 | P.NPUPN_ITS ---
Subjective NPU 2 Subjective: Patient presented today reporting that she is doing okay. She apologized for being he asked yesterday but we discussed that that was nothing that she could have prevented. She reports that she has not heard from them yet today. She is hopeful that they can figure out something that would allow her voice to stay together. She is also hopeful that we will find something soon. She denied any side effects to the medication and reports the activities of the hospitalist are being helpful with her symptoms. Mental Status Exam 2 MSE Comments: This is an obese white female in hospital scrubs with limited grooming and eye contact. No abnormal movements except mild psychomotor retardation. Cooperative with exam in no acute distress. Speech was slightly decreased rate but normal volume and she showed evidence of significant dysarthria and she was limited in her ability to communicate verbally. There was evidence of facial asymmetry. Her mood was described as okay (2 thumbs up) Her affect appeared restricted in range. Her thought process was linear and logical as she was able to answer questions by writing them down. Her thought content showed no evidence of homicidal or suicidal ideation. Also she did not appear to be responding to internal stimuli. There was no clear evidence of delusional thinking. Attention and concentration appeared intact and her recent and remote memory appeared grossly intact but none were formally tested.. Her insight was limited. Her judgment was fair. Her impulse control appeared limited at this time. Vitals/I&O/Wt Last Vital Signs Temp 98.9 F 06/05/24 08:00 Pulse 121 H 06/05/24 08:00 Resp 19 H 06/05/24 08:00 BP 119/79 06/05/24 08:00 Pulse Ox 90 06/05/24 06:00 O2 Del Method Room Air 06/05/24 06:00 Data NPU 06/03/24 11:28 06/03/24 11:28 A&P Assessment and plan (1) Major depressive disorder, recurrent episode, moderate with anxious distress: (2) Chronic post-traumatic stress disorder: (3) Panic disorder without agoraphobia: Plan 38-year-old female admitted with suicidal ideation with a history of major depressive disorder and PTSD currently on 96-hour hold returning in less than 24 hours 1.? Encourage individual, group and milieu therapy. 2.? Recommend sober living treatment at the highest level of care to which the patient is willing to commit 3.??Continue Prozac 60mg daily through tube. Discharge to [facility] not an option given complexity of medical treatment needed. She is currently homeless but had been living with her partner and we are working with them to provide some support for her while she awaits her placement once level 2 has been established. 4.? Continue every 15 minute checks for safety? 5.??Will attempt to gather collateral information, will complete swallowing study, Continue speech therapy. 6. Consider placement in continued medical care facility as patient homeless and cannot go to [facility] with her needs at home with rehabilitation s/p craniotomy. Will talk with her about the prospect of returning to her previous residence while she awaits placement for the level 2. 7. Patient reported painful nodule and lower left quadrant of abdomen. Reconsulted medicine to investigate possible etiologies. We will continue to follow hospitalist recommendation. 8. Child protective services/DFS came 06/04/2024 due to her 1 son going to a psychiatric facility and her ex significant other who has some custody reporting he does not want that son back. They met with her and brainstormed ways to manage her children safely and trying to get an understanding of what her trajectory is. Involuntary Hold Information 2 96 Hour Hold: 96 Hour Involuntary Admission: Yes 96 Hour Hold Ending Date: 05/29/24 96 Hour Hold Ending Time: 17:10 Attestations NPU 2 Medical Necessity Statement*: Inpatient hospitalization is medically necessary and the clinically appropriate intervention at this time.? We will monitor/initiate medications and make changes as indicated.?? The patient?s likely length of stay 2-4 days. Coding Level of Care Code Acute Code for Chg Fwd Diagnoses Major depressive disorder, recurrent episode, moderate with anxious distress F33.1 Chronic post-traumatic stress disorder F43.12 Panic disorder without agoraphobia F41.0
[2024-06-05 19:39] VITALS: BP 117/87; PULSE 120; RESP 18; TEMP 37.3; O2SAT 95
[2024-06-05] MEDS: trazodone 50 mg Tablet PO (19:53)
[2024-06-05] MEDS: cyclobenzaprine 10 mg Tablet PO (19:53)
[2024-06-06 06:00] VITALS: BP 139/82; PULSE 123; RESP 18; TEMP 37; O2SAT 96
[2024-06-06] MEDS: acetaminophen 325 mg Tablet 650 MG PO ×3 (06:16→20:20)
[2024-06-06] MEDS: levothyroxine 137 mcg Tablet PO (07:56)
[2024-06-06] MEDS: gabapentin 400 mg Capsule PEG-TUBE ×3 (07:56→20:20)
[2024-06-06] MEDS: fluoxetine 20 mg Capsule 60 MG PEG-TUBE (07:56)
[2024-06-06 08:44] VITALS: PULSE 104
--- NOTE | 2024-06-06 09:02 | P.NPUPN_ITS ---
Subjective NPU 2 Subjective: Patient presented today reporting that she is doing fine. We discussed the fact that her level 2 interview will likely be in the next couple of days.. She was happy about that but frustrated as is the social work team and that they have not been able to find a place that is willing to accept her at this point. That along with the challenges of her children's making this time very frustrating. Otherwise she denied side effects to her medication. Mental Status Exam 2 MSE Comments: This is an obese white female in hospital scrubs with limited grooming and eye contact. No abnormal movements except mild psychomotor retardation. Cooperative with exam in no acute distress. Speech was slightly decreased rate but normal volume and she showed evidence of significant dysarthria and she was limited in her ability to communicate verbally. There was evidence of facial asymmetry. Her mood was described as okay (2 thumbs up) Her affect appeared restricted in range. Her thought process was linear and logical as she was able to answer questions by writing them down. Her thought content showed no evidence of homicidal or suicidal ideation. Also she did not appear to be responding to internal stimuli. There was no clear evidence of delusional thinking. Attention and concentration appeared intact and her recent and remote memory appeared grossly intact but none were formally tested.. Her insight was limited. Her judgment was fair. Her impulse control appeared limited at this time. Vitals/I&O/Wt Last Vital Signs Temp 98.6 F 06/06/24 06:00 Pulse 123 H 06/06/24 06:00 Resp 18 06/06/24 06:00 BP 139/82 06/06/24 06:00 Pulse Ox 96 06/06/24 06:00 O2 Del Method Room Air 06/06/24 06:00 Data NPU 06/06/24 10:20 06/03/24 11:28 A&P Assessment and plan (1) Major depressive disorder, recurrent episode, moderate with anxious distress: (2) Chronic post-traumatic stress disorder: (3) Panic disorder without agoraphobia: Plan 38-year-old female admitted with suicidal ideation with a history of major depressive disorder and PTSD currently on 96-hour hold returning in less than 24 hours 1.? Encourage individual, group and milieu therapy. 2.? Recommend sober living treatment at the highest level of care to which the patient is willing to commit 3.??Continue Prozac 60mg daily through tube. Discharge to intermediate not an option given complexity of medical treatment needed. She is currently homeless but had been living with her partner and we are working with them to provide some support for her while she awaits her placement once level 2 has been established. 4.? Continue every 15 minute checks for safety? 5.??Will attempt to gather collateral information, will complete swallowing study, Continue speech therapy. 6. Consider placement in continued medical care facility as patient homeless and cannot go to intermediate with her needs at home with rehabilitation s/p craniotomy. Will talk with her about the prospect of returning to her previous residence while she awaits placement for the level 2. 7. Patient reported painful nodule and lower left quadrant of abdomen. Reconsulted medicine to investigate possible etiologies. We will continue to follow hospitalist recommendation. 8. Child protective services/DFS came 06/04/2024 due to her 1 son going to a psychiatric facility and her ex significant other who has some custody reporting he does not want that son back. They met with her and brainstormed ways to manage her children safely and trying to get an understanding of what her trajectory is. Involuntary Hold Information 2 96 Hour Hold: 96 Hour Involuntary Admission: Yes 96 Hour Hold Ending Date: 05/29/24 96 Hour Hold Ending Time: 17:10 Attestations NPU 2 Medical Necessity Statement*: Inpatient hospitalization is medically necessary and the clinically appropriate intervention at this time.? We will monitor/initiate medications and make changes as indicated.?? The patient?s likely length of stay 2-4 days. Coding Level of Care Code Acute Code for Chg Fwd Diagnoses Major depressive disorder, recurrent episode, moderate with anxious distress F33.1 Chronic post-traumatic stress disorder F43.12 Panic disorder without agoraphobia F41.0
--- NOTE | 2024-06-06 09:46 | ECG_ITS ---
[facility]: 2024-[facility]06 Pat Name: Magalie Dobbs Department: Room: 126 Gender: Female Sales Support Technician: : 1985 Requested By: Chery Jackson Order Number: [id number] De La Rosa MD: Carlos Orozco M.D. Measurements Intervals [place] Rate: 104 P: 58 TX: 143 QRS: 72 QRSD: 95 T: 38 QT: 350 QTc: 461 Interpretive Statements SINUS TACHYCARDIA LOW QRS VOLTAGE IN PRECORDIAL LEADS [QRS DEFLECTION < 1.0 mV IN CHEST LEADS] Compared to ECG 05/25/2024 16:37:10 Low QRS voltage now present Short TX interval no longer present Electronically Signed On 06-08-2024 22:03:29 [employer]CRETE FLOAT [employer]KER by Carlos Orozco M.D. [email or web address]
[2024-06-06 10:35] LABS: Basophils % 0.3 %; Eosinophils # 0.2 10^3/uL (0.0-0.8); Eosinophils % 1.9 %; Hematocrit 37.5 % (36-47); Mean Corpuscular HGB Conc 30.1 g/dL (30-55); Mean Corpuscular Hemoglobin 25.7 pg (27-33); Mean Corpuscular Volume 85.2 fl (85-98); Monocytes # 0.7 10^3/uL (0.2-0.9); Monocytes % 6.4 %; Neutrophils % 71.1 %; Nucleated Red Blood Cells % 0 %; Platelet Count 298 10^3/cmm (157-399); Red Cell Distribution Width 14.8 % (12.1-15.1); White Blood Count 10.13 10^3/uL (3.29-11.43)
[2024-06-06 14:00] VITALS: BP 131/80; PULSE 111; RESP 16; TEMP 37.2; O2SAT 92
[2024-06-06] MEDS: trazodone 50 mg Tablet PO (20:20)
[2024-06-06 22:00] VITALS: BP 130/79; PULSE 112; RESP 18; O2SAT 92
[2024-06-07 06:00] VITALS: BP 134/89; PULSE 119; RESP 18; TEMP 37; O2SAT 93
[2024-06-07] MEDS: acetaminophen 325 mg Tablet 650 MG PO ×2 (06:13→20:38)
[2024-06-07 07:45] VITALS: BP 134/89; PULSE 119; RESP 18; TEMP 37
[2024-06-07] MEDS: gabapentin 400 mg Capsule PEG-TUBE ×3 (08:43→20:39)
[2024-06-07] MEDS: fluoxetine 20 mg Capsule 60 MG PEG-TUBE (08:43)
[2024-06-07] MEDS: levothyroxine 137 mcg Tablet PO (08:43)
[2024-06-07] MEDS: ibuprofen 600 mg Tablet PO (11:34)
[2024-06-07 12:00] VITALS: BP 134/89; PULSE 119; RESP 18; TEMP 37
[2024-06-07 14:00] VITALS: BP 139/87; PULSE 118; RESP 16; TEMP 37; O2SAT 95
--- NOTE | 2024-06-07 14:46 | P.NPUPN_ITS ---
Subjective NPU 2 Subjective: Patient presented today reporting that she is frustrated at her situation. Specifically dealing with the sequela of her craniotomy and having to deal with not being able to speak correctly. Having to write everything down in communication. She reports that she hopes that she will have some improvements but is frustrated that this may be how it is for the rest of her life. She denies any side effects to her medication. Mental Status Exam 2 MSE Comments: This is an obese white female in hospital scrubs with limited grooming and eye contact. No abnormal movements except mild psychomotor retardation. Cooperative with exam in no acute distress. Speech was slightly decreased rate but normal volume and she showed evidence of significant dysarthria and she was limited in her ability to communicate verbally. There was evidence of facial asymmetry. Her mood was described as okay (2 thumbs up) Her affect appeared restricted in range. Her thought process was linear and logical as she was able to answer questions by writing them down. Her thought content showed no evidence of homicidal or suicidal ideation. Also she did not appear to be responding to internal stimuli. There was no clear evidence of delusional thinking. Attention and concentration appeared intact and her recent and remote memory appeared grossly intact but none were formally tested.. Her insight was limited. Her judgment was fair. Her impulse control appeared limited at this time. Vitals/I&O/Wt Last Vital Signs Temp 98.6 F 06/07/24 14:00 Pulse 118 H 06/07/24 14:00 Resp 16 06/07/24 14:00 BP 139/87 06/07/24 14:00 Pulse Ox 95 06/07/24 14:00 O2 Del Method Room Air 06/07/24 14:00 Data NPU 06/06/24 10:20 06/03/24 11:28 A&P Assessment and plan (1) Major depressive disorder, recurrent episode, moderate with anxious distress: (2) Chronic post-traumatic stress disorder: (3) Panic disorder without agoraphobia: Plan 38-year-old female admitted with suicidal ideation with a history of major depressive disorder and PTSD currently on 96-hour hold returning in less than 24 hours 1.? Encourage individual, group and milieu therapy. 2.? Recommend sober living treatment at the highest level of care to which the patient is willing to commit 3.??Continue Prozac 60mg daily through tube. Discharge to intermediate not an option given complexity of medical treatment needed. She is currently homeless but had been living with her partner and we are working with them to provide some support for her while she awaits her placement once level 2 has been established. 4.? Continue every 15 minute checks for safety? 5.??Will attempt to gather collateral information, will complete swallowing study, Continue speech therapy. 6. Consider placement in continued medical care facility as patient homeless and cannot go to intermediate with her needs at home with rehabilitation s/p craniotomy. Will talk with her about the prospect of returning to her previous residence while she awaits placement for the level 2. Level 2 hearing help today. 7. Patient reported painful nodule and lower left quadrant of abdomen. Reconsulted medicine to investigate possible etiologies. We will continue to follow hospitalist recommendation. 8. Child protective services/DFS came 06/04/2024 due to her 1 son going to a psychiatric facility and her ex significant other who has some custody reporting he does not want that son back. They met with her and brainstormed ways to manage her children safely and trying to get an understanding of what her trajectory is. Involuntary Hold Information 2 96 Hour Hold: 96 Hour Involuntary Admission: Yes 96 Hour Hold Ending Date: 05/29/24 96 Hour Hold Ending Time: 17:10 Attestations NPU 2 Medical Necessity Statement*: Inpatient hospitalization is medically necessary and the clinically appropriate intervention at this time.? We will monitor/initiate medications and make changes as indicated.?? The patient?s likely length of stay 2-4 days. Coding Level of Care Code Acute Code for Chg Fwd Diagnoses Major depressive disorder, recurrent episode, moderate with anxious distress F33.1 Chronic post-traumatic stress disorder F43.12 Panic disorder without agoraphobia F41.0
[2024-06-07 16:00] VITALS: BP 139/87; PULSE 118; RESP 16; TEMP 37
[2024-06-07] MEDS: trazodone 50 mg Tablet PO (20:39)
[2024-06-07 22:00] VITALS: BP 138/87; PULSE 114; RESP 18; TEMP 37; O2SAT 94
[2024-06-08] MEDS: ibuprofen 600 mg Tablet PO ×2 (05:20→19:50)
[2024-06-08 06:00] VITALS: BP 111/78; PULSE 127; RESP 18; TEMP 36.9; O2SAT 93
[2024-06-08 08:00] VITALS: BP 111/78; PULSE 127; RESP 8; TEMP 36.9
[2024-06-08] MEDS: levothyroxine 137 mcg Tablet PO (08:25)
[2024-06-08] MEDS: gabapentin 400 mg Capsule PEG-TUBE ×3 (08:25→21:37)
[2024-06-08] MEDS: fluoxetine 20 mg Capsule 60 MG PEG-TUBE (08:25)
[2024-06-08] MEDS: acetaminophen 325 mg Tablet 650 MG PO ×2 (08:25→15:05)
--- NOTE | 2024-06-08 10:16 | P.NPUPN_ITS ---
Subjective NPU 2 Subjective: Patient presented today reporting she is doing okay. Some frustration with the time is taking to identify a possible place for her to go. Otherwise she reports she is feels fine as far as her medications. She continues to express frustration about her limited ability to communicate. She denies any side effects to medications. Mental Status Exam 2 MSE Comments: This is an obese white female in hospital scrubs with limited grooming and eye contact. No abnormal movements except mild psychomotor retardation. Cooperative with exam in no acute distress. Speech was slightly decreased rate but normal volume and she showed evidence of significant dysarthria and she was limited in her ability to communicate verbally. There was evidence of facial asymmetry. Her mood was described as okay (2 thumbs up) Her affect appeared restricted in range. Her thought process was linear and logical as she was able to answer questions by writing them down. Her thought content showed no evidence of homicidal or suicidal ideation. Also she did not appear to be responding to internal stimuli. There was no clear evidence of delusional thinking. Attention and concentration appeared intact and her recent and remote memory appeared grossly intact but none were formally tested.. Her insight was limited. Her judgment was fair. Her impulse control appeared limited at this time. Vitals/I&O/Wt Last Vital Signs Temp 98.4 F 06/08/24 08:00 Pulse 127 H 06/08/24 08:00 Resp 8 L 06/08/24 08:00 BP 111/78 06/08/24 08:00 Pulse Ox 93 06/08/24 06:00 O2 Del Method Room Air 06/08/24 06:00 Data NPU 06/06/24 10:20 06/03/24 11:28 A&P Assessment and plan (1) Major depressive disorder, recurrent episode, moderate with anxious distress: (2) Chronic post-traumatic stress disorder: (3) Panic disorder without agoraphobia: Plan 38-year-old female admitted with suicidal ideation with a history of major depressive disorder and PTSD currently on 96-hour hold returning in less than 24 hours 1.? Encourage individual, group and milieu therapy. 2.? Recommend sober living treatment at the highest level of care to which the patient is willing to commit 3.??Continue Prozac 60mg daily through tube. Discharge to [facility] not an option given complexity of medical treatment needed. She is currently homeless but had been living with her partner and we are working with them to provide some support for her while she awaits her placement once level 2 has been established. 4.? Continue every 15 minute checks for safety? 5.??Will attempt to gather collateral information, will complete swallowing study, Continue speech therapy. 6. Consider placement in continued medical care facility as patient homeless and cannot go to [facility] with her needs at home with rehabilitation s/p craniotomy. Will talk with her about the prospect of returning to her previous residence while she awaits placement for the level 2. Level 2 hearing help today. 7. Patient reported painful nodule and lower left quadrant of abdomen. Reconsulted medicine to investigate possible etiologies. We will continue to follow hospitalist recommendation. 8. Child protective services/DFS came 06/04/2024 due to her 1 son going to a psychiatric facility and her ex significant other who has some custody reporting he does not want that son back. They met with her and brainstormed ways to manage her children safely and trying to get an understanding of what her trajectory is. Involuntary Hold Information 2 96 Hour Hold: 96 Hour Involuntary Admission: Yes 96 Hour Hold Ending Date: 05/29/24 96 Hour Hold Ending Time: 17:10 Attestations NPU 2 Medical Necessity Statement*: Inpatient hospitalization is medically necessary and the clinically appropriate intervention at this time.? We will monitor/initiate medications and make changes as indicated.?? The patient?s likely length of stay 3-5 days. Coding Level of Care Code Acute Code for Chg Fwd Diagnoses Major depressive disorder, recurrent episode, moderate with anxious distress F33.1 Chronic post-traumatic stress disorder F43.12 Panic disorder without agoraphobia F41.0
[2024-06-08 12:00] VITALS: BP 111/78; PULSE 127; RESP 8; TEMP 36.9
[2024-06-08 14:00] VITALS: BP 125/73; PULSE 117; RESP 16; TEMP 37.1; O2SAT 94
[2024-06-08 16:00] VITALS: BP 125/73; PULSE 117; RESP 16; TEMP 37.1
--- NOTE | 2024-06-08 17:46 | PC.NURSE ---
SPEECH THERAPIST HERE ON UNIT AND ADDED MAGIC CUPS TID. PT EDUCATED AND SUPPORT VOICED.
[2024-06-08 20:25] VITALS: BP 125/85; PULSE 86; RESP 18; TEMP 36.7; O2SAT 97
[2024-06-08] MEDS: trazodone 50 mg Tablet PO (21:38)
[2024-06-09] MEDS: ibuprofen 600 mg Tablet PO ×3 (05:17→22:49)
[2024-06-09 06:00] VITALS: BP 112/74; PULSE 102; RESP 16; TEMP 36.4; O2SAT 92
[2024-06-09] MEDS: acetaminophen 325 mg Tablet 650 MG PO ×2 (07:39→20:51)
[2024-06-09] MEDS: fluoxetine 20 mg Capsule 60 MG PEG-TUBE (08:00)
[2024-06-09] MEDS: levothyroxine 137 mcg Tablet PO (08:00)
[2024-06-09] MEDS: gabapentin 400 mg Capsule PEG-TUBE ×3 (08:01→20:51)
--- NOTE | 2024-06-09 09:33 | P.NPUPN_ITS ---
Subjective NPU 2 Subjective: Patient presented today reporting she is doing fine. She is more positive about her situation today. She is aware Dr Alexis returns tomorrow. Otherwise she reports she is feels fine as far as her medications. She continues to express frustration about her limited ability to communicate. She denies any side effects to medications. Mental Status Exam 2 MSE Comments: This is an obese white female in hospital scrubs with limited grooming and eye contact. No abnormal movements except mild psychomotor retardation. Cooperative with exam in no acute distress. Speech was slightly decreased rate but normal volume and she showed evidence of significant dysarthria and she was limited in her ability to communicate verbally. There was evidence of facial asymmetry. Her mood was described as okay (2 thumbs up) Her affect appeared restricted in range. Her thought process was linear and logical as she was able to answer questions by writing them down. Her thought content showed no evidence of homicidal or suicidal ideation. Also she did not appear to be responding to internal stimuli. There was no clear evidence of delusional thinking. Attention and concentration appeared intact and her recent and remote memory appeared grossly intact but none were formally tested.. Her insight was limited. Her judgment was fair. Her impulse control appeared limited at this time. Vitals/I&O/Wt Last Vital Signs Temp 97.6 F 06/09/24 06:00 Pulse 102 H 06/09/24 06:00 Resp 16 06/09/24 06:00 BP 112/74 06/09/24 06:00 Pulse Ox 92 06/09/24 06:00 O2 Del Method Room Air 06/08/24 14:00 Data NPU 06/06/24 10:20 06/03/24 11:28 A&P Assessment and plan (1) Major depressive disorder, recurrent episode, moderate with anxious distress: (2) Chronic post-traumatic stress disorder: (3) Panic disorder without agoraphobia: Plan 38-year-old female admitted with suicidal ideation with a history of major depressive disorder and PTSD currently on 96-hour hold returning in less than 24 hours 1.? Encourage individual, group and milieu therapy. 2.? Recommend sober living treatment at the highest level of care to which the patient is willing to commit 3.??Continue Prozac 60mg daily through tube. Discharge to group home not an option given complexity of medical treatment needed. She is currently homeless but had been living with her partner and we are working with them to provide some support for her while she awaits her placement once level 2 has been established. 4.? Continue every 15 minute checks for safety? 5.??Will attempt to gather collateral information, will complete swallowing study, Continue speech therapy. 6. Consider placement in continued medical care facility as patient homeless and cannot go to group home with her needs at home with rehabilitation s/p craniotomy. Will talk with her about the prospect of returning to her previous residence while she awaits placement for the level 2. Level 2 hearing help today. 7. Patient reported painful nodule and lower left quadrant of abdomen. Reconsulted medicine to investigate possible etiologies. We will continue to follow hospitalist recommendation. 8. Child protective services/DFS came 06/04/2024 due to her 1 son going to a psychiatric facility and her ex significant other who has some custody reporting he does not want that son back. They met with her and brainstormed ways to manage her children safely and trying to get an understanding of what her trajectory is. Involuntary Hold Information 2 96 Hour Hold: 96 Hour Involuntary Admission: Yes 96 Hour Hold Ending Date: 05/29/24 96 Hour Hold Ending Time: 17:10 Attestations NPU 2 Medical Necessity Statement*: Inpatient hospitalization is medically necessary and the clinically appropriate intervention at this time.? We will monitor/initiate medications and make changes as indicated.?? The patient?s likely length of stay 3-5 days. Coding Level of Care Code Acute Code for Chg Fwd Diagnoses Major depressive disorder, recurrent episode, moderate with anxious distress F33.1 Chronic post-traumatic stress disorder F43.12 Panic disorder without agoraphobia F41.0
[2024-06-09 14:00] VITALS: BP 95/57; PULSE 104; RESP 14; TEMP 37.5; O2SAT 100
[2024-06-09] MEDS: trazodone 50 mg Tablet PO (20:51)
[2024-06-09] MEDS: cyclobenzaprine 10 mg Tablet PO (20:51)
[2024-06-09 20:53] VITALS: BP 128/87; PULSE 118; RESP 18; TEMP 36.9; O2SAT 100
[2024-06-10 06:00] VITALS: BP 126/82; PULSE 119; RESP 16; TEMP 36.8; O2SAT 95
[2024-06-10] MEDS: acetaminophen 325 mg Tablet 650 MG PO ×3 (06:32→20:43)
[2024-06-10 07:53] VITALS: BP 126/82; PULSE 119; RESP 16; TEMP 36.8
[2024-06-10] MEDS: fluoxetine 20 mg Capsule 60 MG PEG-TUBE (08:37)
[2024-06-10] MEDS: ibuprofen 600 mg Tablet PO (08:37)
[2024-06-10] MEDS: hyDROXYzine 25 mg Capsule 50 MG PO (08:37)
[2024-06-10] MEDS: levothyroxine 137 mcg Tablet PO (08:37)
[2024-06-10] MEDS: gabapentin 400 mg Capsule PEG-TUBE ×3 (08:37→20:43)
--- NOTE | 2024-06-10 11:08 | PC.NURSE ---
Patient reports pain in her PEG tube. On inspection, the skin is normal color surrounding the area. The actual opening is a light pink color. No discharge observed. No foul odors detected. This nurse applied a gauze as a barrier between the equipment and patient's skin and taped the end onto her abdomen so it won't hang and pull. Patient tolerated well.
[2024-06-10 12:00] VITALS: BP 126/82; PULSE 119; RESP 16; TEMP 36.8
[2024-06-10 14:00] VITALS: BP 129/84; PULSE 68; RESP 16; TEMP 36.9; O2SAT 98
[2024-06-10 16:00] VITALS: BP 129/84; PULSE 68; RESP 16; TEMP 36.9
--- NOTE | 2024-06-10 16:09 | W.PM.NPUPNS ---
Subjective NPU Subjective: Patient presented today reporting she is doing fine. She reports disappointment with having to remain here but understands that her situation was unremarkable at her previous residence. She reported no thoughts of hurting herself but reported frustration with not being able to communicate with others without writing her needs. to staff. Patient was compliant but isolative on the milieu. Mental Status Exam MSE Comments: This is an obese white female in hospital scrubs with limited grooming and eye contact. No abnormal movements except mild psychomotor retardation. She was cooperative with exam in no acute distress. Speech was slightly decreased in rate but normal in volume and she showed evidence of significant dysarthria and she was limited in her ability to communicate verbally. There was evidence of facial asymmetry. Her mood was described as good. Her affect appeared restricted in range. Her thought process was linear and logical as she was able to answer questions by writing them down. Her thought content showed no evidence of homicidal or suicidal ideation. Also she did not appear to be responding to internal stimuli. There was no clear evidence of delusional thinking. Attention and concentration appeared intact and her recent and remote memory appeared grossly intact but none were formally tested.. Her insight was limited. Her judgment was fair. Her impulse control appeared limited at this time. Vitals/I&O/Wt Last Vital Signs Temp 98.5 F 06/10/24 14:00 Pulse 68 06/10/24 14:00 Resp 16 06/10/24 14:00 BP 129/84 06/10/24 14:00 Pulse Ox 98 06/10/24 14:00 O2 Del Method Room Air 06/10/24 14:00 Weight last 48 hrs Weight 94.438 kg Data NPU 06/06/24 10:20 06/03/24 11:28 A&P Assessment and plan (1) Major depressive disorder, recurrent episode, moderate with anxious distress: (2) Chronic post-traumatic stress disorder: (3) Panic disorder without agoraphobia: Plan 38-year-old female admitted with suicidal ideation with a history of major depressive disorder and PTSD currently on 96-hour hold returning in less than 24 hours 1.? Encourage individual, group and milieu therapy. 2.? Recommend sober living treatment at the highest level of care to which the patient is willing to commit 3.??Continue Prozac 60mg daily through tube. [facility] not an option given complexity of medical treatment needed. She is currently homeless but had been living with her partner and we are working with them to provide some support for her while she awaits her placement once level 2 has been established. 4.? Continue every 15 minute checks for safety? 5.??Will attempt to gather collateral information, will complete swallowing study, Continue speech therapy. 6. Consider placement in continued medical care facility as patient homeless and cannot go to [facility] with her needs at home with rehabilitation s/p craniotomy. Will talk with her about the prospect of returning to her previous residence while she awaits placement for the level 2. Level 2 hearing help today. 7. Patient reported painful nodule and lower left quadrant of abdomen. Reconsulted medicine to investigate possible etiologies. We will continue to follow hospitalist recommendation. 8. Child protective services/DFS came 06/04/2024 due to her 1 son going to a psychiatric facility and her ex significant other who has some custody reporting he does not want that son back. They met with her and brainstormed ways to manage her children safely and trying to get an understanding of what her trajectory is. Involuntary Hold Information 96 Hour Hold: 96 Hour Involuntary Admission: Yes 96 Hour Hold Ending Date: 05/29/24 96 Hour Hold Ending Time: 17:10 Attestations NPU Medical Necessity Statement*: Inpatient hospitalization is medically necessary and the clinically appropriate intervention at this time.? We will monitor/initiate medications and make changes as indicated.?? The patient?s likely length of stay 3-5 days. Coding Level of Care Code Acute Code for Chg Fwd Diagnoses Major depressive disorder, recurrent episode, moderate with anxious distress F33.1 Chronic post-traumatic stress disorder F43.12 Panic disorder without agoraphobia F41.0
[2024-06-10] MEDS: diclofenac 75 mg DR Tablet PO (20:43)
[2024-06-10] MEDS: trazodone 50 mg Tablet PO (20:43)
[2024-06-10 21:39] VITALS: BP 125/90; PULSE 116; RESP 17; TEMP 37.4; O2SAT 92
[2024-06-11] MEDS: acetaminophen 325 mg Tablet 650 MG PO ×2 (05:31→20:24)
[2024-06-11 06:00] VITALS: BP 102/72; PULSE 75; RESP 16; TEMP 36.5; O2SAT 98
[2024-06-11 07:22] VITALS: BP 102/72; PULSE 75; RESP 16; TEMP 36.5
[2024-06-11] MEDS: levothyroxine 137 mcg Tablet PO (08:26)
[2024-06-11] MEDS: diclofenac 75 mg DR Tablet PO (08:26)
[2024-06-11] MEDS: gabapentin 400 mg Capsule PEG-TUBE ×3 (08:27→20:24)
[2024-06-11] MEDS: fluoxetine 20 mg Capsule 60 MG PEG-TUBE (08:27)
[2024-06-11] MEDS: ibuprofen 600 mg Tablet PO (08:27)
[2024-06-11 12:00] VITALS: BP 102/72; PULSE 75; RESP 16; TEMP 36.5
--- NOTE | 2024-06-11 12:33 | XRR_ITS ---
PROCEDURE INFORMATION: Exam: XR Chest Exam date and time: 06/11/2024 12:50 PM Age: 38 years old Clinical indication: Shortness of breath; Additional info: PT choked on food TECHNIQUE: Imaging protocol: Radiologic exam of the chest. Views: 1 view. COMPARISON: CR (CHEST, ) 06/03/2024 3:03 PM FINDINGS: Lungs: Focal areas of atelectasis are seen in both lower lung muro. Pleural spaces: Unremarkable. No pleural effusion. No pneumothorax. Heart/Mediastinum: Unremarkable. No cardiomegaly. Bones/joints: Unremarkable. XR/XR chest 1V portable [id number] IMPRESSION: Focal areas of atelectasis are seen in both lower lung muro. Otherwise unremarkable chest x-ray.
--- NOTE | 2024-06-11 12:38 | PC.NURSE ---
PT OBSERVED GAGGING AND COUGHING ON FOOD FROM LUNCH. FOOD IN BOWL DOES LOOK A LITTLE WATERY. PT SOUND WET AND GURGLING BUT WAS ABLE TO CLEAR THROAT. DR. RAMOS WAS NOTIFIED BY [facility] [employer] AND CXR WAS ORDERED. THIS RN CALLED AND NOTIFIED SPEECH THERAPIST AND DIET ORDER WAS CHANGED TO DYSPHASIA LEVEL 4 DIET PUREED WITH MODERATELY THICK LIQUIDS. EDUCATION PROVIDED TO PT. ALL QUESTIONS ANSWERED AND SUPPORT WAS VOICED.
[2024-06-11 14:00] VITALS: BP 130/93; PULSE 119; RESP 16; TEMP 37.2; O2SAT 93
--- NOTE | 2024-06-11 14:18 | P.NPUPN_ITS ---
Subjective NPU 2 Subjective: Patient presented today reporting she is doing fine. Patient had reported no changes in her mood. She had continued to except the fact that she may benefit from [facility] placement until greater recovery had occurred. She did appear to have some difficulties with swallowing today as she had aspirated some of her food. She had reportedly had almost no or no intake through her PEG tube. Patient had continued to report frustration at not being able to speak but continued to report feeling hopeful. She had expressed some concern about being homeless and agreed that it was better that she not return to her previous residence. Mental Status Exam 2 MSE Comments: This is an obese white female in hospital scrubs with limited grooming and eye contact. No abnormal movements except mild psychomotor retardation. She was cooperative with exam in no acute distress. Speech was slightly decreased in rate but normal in volume and she showed evidence of significant dysarthria and she was limited in her ability to communicate verbally. There was evidence of facial asymmetry. Her mood was described as ok. (thumbs up) Her affect appeared restricted in range. Her thought process was linear and logical as she was able to answer questions by writing them down. Her thought content showed no evidence of homicidal or suicidal ideation. Also she did not appear to be responding to internal stimuli. There was no clear evidence of delusional thinking. Attention and concentration appeared intact and her recent and remote memory appeared grossly intact but none were formally tested.. Her insight was limited. Her judgment was fair. Her impulse control appeared limited at this time. Vitals/I&O/Wt Last Vital Signs Temp 97.7 F 06/11/24 12:00 Pulse 75 06/11/24 12:00 Resp 16 06/11/24 12:00 BP 102/72 06/11/24 12:00 Pulse Ox 98 06/11/24 06:00 O2 Del Method Room Air 06/10/24 14:00 Weight last 48 hrs Weight 94.438 kg Data NPU 06/06/24 10:20 06/03/24 11:28 A&P Assessment and plan (1) Major depressive disorder, recurrent episode, moderate with anxious distress: (2) Chronic post-traumatic stress disorder: (3) Panic disorder without agoraphobia: Plan 38-year-old female admitted with suicidal ideation with a history of major depressive disorder and PTSD currently on 96-hour hold returning in less than 24 hours 1.? Encourage individual, group and milieu therapy. 2.? Recommend sober living treatment at the highest level of care to which the patient is willing to commit 3.??Continue Prozac 60mg daily through tube. Discharge to long-term not an option given complexity of medical treatment needed. She is currently homeless but had been living with her partner and we are working with them to provide some support for her while she awaits her placement once level 2 has been established. 4.? Continue every 15 minute checks for safety? 5.??Will attempt to gather collateral information, will complete swallowing study, Continue speech therapy. 6. Consider placement in continued medical care facility as patient homeless and cannot go to long-term with her needs at home with rehabilitation s/p craniotomy. Will talk with her about the prospect of returning to her previous residence while she awaits placement for the level 2. Level 2 hearing help today. 7. Patient reported painful nodule and lower left quadrant of abdomen. Reconsulted medicine to investigate possible etiologies. We will continue to follow hospitalist recommendation. 8. Child protective services/DFS came 06/04/2024 due to her 1 son going to a psychiatric facility and her ex significant other who has some custody reporting he does not want that son back. They met with her and brainstormed ways to manage her children safely and trying to get an understanding of what her trajectory is. Involuntary Hold Information 2 96 Hour Hold: 96 Hour Involuntary Admission: Yes 96 Hour Hold Ending Date: 05/29/24 96 Hour Hold Ending Time: 17:10 Attestations NPU 2 Medical Necessity Statement*: Inpatient hospitalization is medically necessary and the clinically appropriate intervention at this time.? We will monitor/initiate medications and make changes as indicated.?? The patient?s likely length of stay 7-10 days. Coding Level of Care Code Acute Code for Chg Fwd Diagnoses Major depressive disorder, recurrent episode, moderate with anxious distress F33.1 Chronic post-traumatic stress disorder F43.12 Panic disorder without agoraphobia F41.0
[2024-06-11 16:00] VITALS: BP 130/93; PULSE 119; RESP 16; TEMP 37.2
[2024-06-11] MEDS: trazodone 50 mg Tablet PO (20:24)
[2024-06-11 22:00] VITALS: BP 116/83; PULSE 118; RESP 18; TEMP 36.6; O2SAT 95
[2024-06-12] MEDS: acetaminophen 325 mg Tablet 650 MG PO ×3 (05:45→20:30)
[2024-06-12 05:58] VITALS: BP 142/82; PULSE 126; RESP 18; TEMP 36.4; O2SAT 91
[2024-06-12 07:50] VITALS: BP 142/82; PULSE 126; RESP 18; TEMP 36.4
[2024-06-12] MEDS: levothyroxine 137 mcg Tablet PO (09:01)
[2024-06-12] MEDS: fluoxetine 20 mg Capsule 60 MG PEG-TUBE (09:01)
[2024-06-12] MEDS: gabapentin 400 mg Capsule PEG-TUBE ×3 (09:02→20:31)
[2024-06-12 12:00] VITALS: BP 142/82; PULSE 126; RESP 18; TEMP 36.4
[2024-06-12 14:00] VITALS: BP 126/74; PULSE 116; RESP 17; TEMP 36.7; O2SAT 92
--- NOTE | 2024-06-12 15:47 | P.NPUPN_ITS ---
Subjective NPU 2 Subjective: Patient presented today reporting that her mood was good. She had continued to report having a plan of going to a senior living. She had reported some difficulties with swallowing sausage yesterday to the point that she had choked. She continued to have most of her oral intake or nearly all of her oral intake rather than the use of the PEG tube. The patient had reported adequate sleep. She had continued to report some depression and anxiety but stated that she was feeling better. Mental Status Exam 2 MSE Comments: This is an obese white female in hospital scrubs with limited grooming and eye contact. No abnormal movements except mild psychomotor retardation. She was cooperative with exam in no acute distress. Speech was slightly decreased in rate but normal in volume and she showed evidence of significant dysarthria and she was limited in her ability to communicate verbally. There was evidence of facial asymmetry. Her mood was described as good. (thumbs up) Her affect appeared less restricted in range. Her thought process was linear and logical as she was able to answer questions by writing them down. Her thought content showed no evidence of homicidal or suicidal ideation. Also she did not appear to be responding to internal stimuli. There was no clear evidence of delusional thinking. Attention and concentration appeared intact and her recent and remote memory appeared grossly intact but none were formally tested.. Her insight was limited. Her judgment was fair. Her impulse control appeared limited at this time. Vitals/I&O/Wt Last Vital Signs Temp 97.6 F 06/12/24 12:00 Pulse 126 H 06/12/24 12:00 Resp 18 06/12/24 12:00 BP 142/82 06/12/24 12:00 Pulse Ox 91 06/12/24 05:58 O2 Del Method Room Air 06/12/24 05:58 Data NPU 06/06/24 10:20 06/03/24 11:28 A&P Assessment and plan (1) Major depressive disorder, recurrent episode, moderate with anxious distress: (2) Chronic post-traumatic stress disorder: (3) Panic disorder without agoraphobia: Plan 38-year-old female admitted with suicidal ideation with a history of major depressive disorder and PTSD currently on 96-hour hold returning in less than 24 hours 1.? Encourage individual, group and milieu therapy. 2.? Recommend sober living treatment at the highest level of care to which the patient is willing to commit 3.??Continue Prozac 60mg daily through tube. Discharge to intermediate not an option given complexity of medical treatment needed. She is currently homeless but had been living with her partner and we are working with them to provide some support for her while she awaits her placement once level 2 has been established. 4.? Continue every 15 minute checks for safety? 5.??Will attempt to gather collateral information, will complete swallowing study, Continue speech therapy. 6. Consider placement in continued medical care facility as patient homeless and cannot go to intermediate with her needs at home with rehabilitation s/p craniotomy. Will talk with her about the prospect of returning to her previous residence while she awaits placement for the level 2. Level 2 hearing help today. 7. Patient reported painful nodule and lower left quadrant of abdomen. Reconsulted medicine to investigate possible etiologies. We will continue to follow hospitalist recommendation. 8. Child protective services/DFS came 06/04/2024 due to her 1 son going to a psychiatric facility and her ex significant other who has some custody reporting he does not want that son back. They met with her and brainstormed ways to manage her children safely and trying to get an understanding of what her trajectory is. Involuntary Hold Information 2 96 Hour Hold: 96 Hour Involuntary Admission: Yes 96 Hour Hold Ending Date: 05/29/24 96 Hour Hold Ending Time: 17:10 Attestations NPU 2 Medical Necessity Statement*: Inpatient hospitalization is medically necessary and the clinically appropriate intervention at this time.? We will monitor/initiate medications and make changes as indicated.?? The patient?s likely length of stay 7-10 days. Awaiting placement to senior living. Coding Level of Care Code Acute Code for Chg Fwd Diagnoses Major depressive disorder, recurrent episode, moderate with anxious distress F33.1 Chronic post-traumatic stress disorder F43.12 Panic disorder without agoraphobia F41.0
[2024-06-12 16:00] VITALS: BP 126/74; PULSE 116; RESP 17; TEMP 36.7
--- NOTE | 2024-06-12 16:29 | PC.NURSE ---
notified Doctor wanda that around pt peg tub skin has some abbrasion small open area which appears from wiping. pt states that she was wiping it off with a kleenexduring group therapy and had small amount of blood on kleenex at that time patient came to nurses station to show this lpn instructor of kleenex. this lpn instructor cleaned area with sterile cotton tipped applicatiors and saline.
[2024-06-12 18:00] LABS: Basophils % 0.4 %; Eosinophils # 0.2 10^3/uL (0.0-0.8); Eosinophils % 1.9 %; Hematocrit 36.9 % (36-47); Lymphocytes # 2.5 10^3/uL (0.8-4.8); Lymphocytes % 25.1 %; Mean Corpuscular HGB Conc 29.3 g/dL (30-55); Mean Corpuscular Hemoglobin 25.5 pg (27-33); Mean Corpuscular Volume 87.2 fl (85-98); Mean Platelet Volume 10.1 fL (7.4-10.4); Monocytes # 0.6 10^3/uL (0.2-0.9); Monocytes % 5.9 %; Neutrophils # 6.59 10^3/uL (1.8-7.7); Nucleated Red Blood Cells % 0 %; Platelet Count 377 10^3/cmm (157-399); Red Blood Count 4.23 10^6/uL (3.85-5.65); White Blood Count 9.99 10^3/uL (3.29-11.43)
--- NOTE | 2024-06-12 18:03 | PC.NURSE ---
verbal given by to crush all medication given in moderately thick liquid see if pt can take meds orally instead of peg tube.
[2024-06-12 18:14] LABS: Alanine Aminotransferase 18 U/L (0-33); Albumin Level 3.8 g/dL (3.5-5.2); Alkaline Phosphatase 127 U/L (35-105); Anion Gap 18.3 (5-19); Aspartate Amino Transferase 14 U/L (0-32); Blood Urea Nitrogen 10 mg/dL (6-20); Calcium 9.5 mg/dL (8.5-10.5); Carbon Dioxide 31 mmol/L (22-29); Chloride 98 mmol/L (98-107); Creatinine Clr Calc Pharmacy 210.4374; Globulin 3.7 g/dL (1.3-4.6); Glomerular Filtration Rate 177.7 mL/min (90-130); Glucose 101 mg/dL (65-115); Osmolality Calculated 295 mOsm/kg (285-295); Potassium 4.3 mmol/L (3.5-5.1); Sodium 143 mmol/L (136-145); Total Bilirubin 0.2 mg/dL (0.15-1.2); Total Protein 7.5 g/dL (6.6-8.7)
--- NOTE | 2024-06-12 18:38 | PC.NURSE ---
THIS CORPORATE LEGAL SECRETARY TALKED VIA PHONE CALL TO CLARE IN [facility] [employer] AND WAS TOLD TO PASS ON TO PT THAT HER OLDEST CHILD WAS OFFICIALLY REMOVED FROM THE HOME AND WILL STAY AT [facility] UNTIL CHILD CAN BE PLACED. PTS YOUNGEST CHILD WAS STILL IN HOME OF RIGHT NOW. CLARE ALSO SAID THAT THERE WILL BE A COURT HEARING HELD ON 06/15/24 AT 2PM IN [facility]. CLARE ASKED IF SHE WOULD BE ABLE TO ATTEND OR HOW THAT WORKED AND THIS CORPORATE LEGAL SECRETARY TOLD HIM THAT I WOULD LET THE CASE WORKERS KNOW AND THEY COULD ARRANGE A ZOOM CALL OR WEBEX CALL TO WHERE SHE COULD BE APART OF THE HEARING. PREMA IN CASE MANAGEMENT WAS NOTIFIED OF COURT HEARING. ANITA WAS ALSO TOLD OF THE SITUATION AND SHE WAS GOOD WITH IT AND KNEW IT WAS HAPPENING DUE TO CLARE MAKING HER AWARE OF THE SITUATION THIS MORNING.
--- NOTE | 2024-06-12 18:56 | P.PN_ITS ---
Subjective 2 Subjective: patient seen for evaluation of peg tube site, she denies any pain at the area. has been eating by mouth, currently peg being used for medication administration Vitals/I&O/Wt Last Vital Signs Temp 98.1 F 06/12/24 16:00 Pulse 116 H 06/12/24 16:00 Resp 17 06/12/24 16:00 BP 126/74 06/12/24 16:00 Pulse Ox 92 06/12/24 14:00 O2 Del Method Room Air 06/12/24 05:58 Physical Exam 2 Narrative: NAD lungs cta b/l abdomen soft very minimal erythema surrounding peg insertion site, no purulence or swelling noted Data 06/12/24 17:34 06/12/24 17:34 A&P Assessment and plan (1) Major depressive disorder, recurrent episode, moderate with anxious distress: (2) Hyperlipemia: Qualifiers: Hyperlipidemia type: mixed hyperlipidemia Qualified Code(s): E78.2 - Mixed hyperlipidemia (3) Hypothyroidism: Qualifiers: Hypothyroidism type: acquired Qualified Code(s): E03.9 - Hypothyroidism, unspecified (4) PEG (percutaneous endoscopic gastrostomy) status: Plan Patient has very minimal leaking around PEG tube insertion site. This is most likely skin irritation from body fluid. Recommend to apply Vaseline around PEG insertion site and use 4 x 4 gauze around to prevent contact with skin. I have low clinical suspicion for infection at this time. Will check CBC. Lactic acid is normal. I discussed with speech therapy regarding potential removal of PEG tube. However PEG tube is still being used for medication administration. I recommend patient to follow-up with her oncologist and primary care doctor regarding removal of tube which can be done as an outpatient at a later time. No antibiotics needed at this time. If patient has a fever or elevation in white count with worsening erythema or swelling around PEG tube site please notify physician for reevaluation. Attestations 2 Medical Necessity Statement*: defer to primary team Diagnoses Major depressive disorder, recurrent episode, moderate with anxious distress F33.1 Mixed hyperlipidemia E78.2 Hyperlipidemia type: mixed hyperlipidemia Acquired hypothyroidism E03.9 Hypothyroidism type: acquired PEG (percutaneous endoscopic gastrostomy) status Z93.1
[2024-06-12] MEDS: trazodone 50 mg Tablet PO (20:31)
[2024-06-12 22:00] VITALS: BP 118/73; PULSE 117; RESP 18; O2SAT 92
[2024-06-13] MEDS: acetaminophen 325 mg Tablet 650 MG PO (05:14)
[2024-06-13 05:37] VITALS: BP 133/91; PULSE 120; RESP 19; TEMP 36.9; O2SAT 94
[2024-06-13 08:00] VITALS: BP 133/91; PULSE 120; RESP 19; TEMP 36.9
[2024-06-13] MEDS: diclofenac 75 mg DR Tablet PO (08:48)
[2024-06-13] MEDS: levothyroxine 137 mcg Tablet PO (08:48)
[2024-06-13] MEDS: gabapentin 400 mg Capsule PEG-TUBE ×3 (08:48→20:22)
[2024-06-13] MEDS: fluoxetine 20 mg Capsule 60 MG PEG-TUBE (08:48)
[2024-06-13 12:00] VITALS: BP 133/91; PULSE 120; RESP 19; TEMP 36.9
--- NOTE | 2024-06-13 13:34 | PC.NURSE ---
sent fax for request of records on patient @[phone] to [facility] fax #[phone] in care of Dr. Jamie Villatoro [facility].
[2024-06-13 14:00] VITALS: BP 124/73; PULSE 115; RESP 17; O2SAT 94
[2024-06-13 16:00] VITALS: BP 124/73; PULSE 115; RESP 17
--- NOTE | 2024-06-13 16:55 | P.NPUPN_ITS ---
Subjective NPU 2 Subjective: 38-year-old white female with PEG tube p lacement and problems with swallowing with a history of vocal cord paralysis. Patient has continued to show progress with eating. Medications were attempted to be given orally in an effort to consider the removal of the PEG tube. Patient reported depressed mood. Patient reports no suicidal thoughts at this time. Mental Status Exam 2 MSE Comments: This is an obese white female in hospital scrubs with limited grooming and eye contact. No abnormal movements except mild psychomotor retardation. She was cooperative with exam in no acute distress. Speech was slightly decreased in rate but normal in volume and she showed evidence of significant dysarthria and she was limited in her ability to communicate verbally. There was evidence of facial asymmetry. Her mood was described as okay. (thumbs up) Her affect appeared less restricted in range. Her thought process was linear and logical as she was able to answer questions by writing them down. Her thought content showed no evidence of homicidal or suicidal ideation. Also she did not appear to be responding to internal stimuli. There was no clear evidence of delusional thinking. Attention and concentration appeared intact and her recent and remote memory appeared grossly intact but none were formally tested.. Her insight was limited. Her judgment was fair. Her impulse control appeared limited at this time. Vitals/I&O/Wt Last Vital Signs Temp 98.4 F 06/13/24 12:00 Pulse 115 H 06/13/24 14:00 Resp 17 06/13/24 14:00 BP 124/73 06/13/24 14:00 Pulse Ox 94 06/13/24 14:00 O2 Del Method Room Air 06/13/24 05:37 Data NPU 06/12/24 17:34 06/12/24 17:34 A&P Assessment and plan (1) Major depressive disorder, recurrent episode, moderate with anxious distress: (2) Chronic post-traumatic stress disorder: (3) Panic disorder without agoraphobia: Plan 38-year-old female admitted with suicidal ideation with a history of major depressive disorder and PTSD currently on 96-hour hold returning in less than 24 hours 1.? Encourage individual, group and milieu therapy. 2.? Recommend sober living treatment at the highest level of care to which the patient is willing to commit 3.??Continue Prozac 60mg daily through tube. Discharge to assisted not an option given complexity of medical treatment needed. She is currently homeless but had been living with her partner and we are working with them to provide some support for her while she awaits her placement once level 2 has been established. 4.? Continue every 15 minute checks for safety? 5.??Will attempt to gather collateral information, will complete swallowing study, Continue speech therapy. 6. Consider placement in continued medical care facility as patient homeless and cannot go to assisted with her needs at home with rehabilitation s/p craniotomy. Will talk with her about the prospect of returning to her previous residence while she awaits placement for the level 2. Level 2 hearing help today. 7. Patient reported painful nodule and lower left quadrant of abdomen. Reconsulted medicine to investigate possible etiologies. We will continue to follow hospitalist recommendation. 8. Child protective services/DFS came 06/04/2024 due to her 1 son going to a psychiatric facility and her ex significant other who has some custody reporting he does not want that son back. They met with her and brainstormed ways to manage her children safely and trying to get an understanding of what her trajectory is. 9. Attempt medications orally with plan to consider removal of PEG tube. Involuntary Hold Information 2 96 Hour Hold: 96 Hour Involuntary Admission: Yes 96 Hour Hold Ending Date: 05/29/24 96 Hour Hold Ending Time: 17:10 Attestations NPU 2 Medical Necessity Statement*: Inpatient hospitalization is medically necessary and the clinically appropriate intervention at this time.? We will monitor/initiate medications and make changes as indicated.?? The patient?s likely length of stay 7-10 days. Awaiting placement to senior living. Coding Level of Care Code Acute Code for Chg Fwd Diagnoses Major depressive disorder, recurrent episode, moderate with anxious distress F33.1 Chronic post-traumatic stress disorder F43.12 Panic disorder without agoraphobia F41.0
[2024-06-13] MEDS: trazodone 50 mg Tablet PO (20:21)
[2024-06-13 20:42] VITALS: BP 116/82; PULSE 108; RESP 16; TEMP 37.1; O2SAT 96
[2024-06-14] MEDS: ibuprofen 600 mg Tablet PO ×2 (01:49→10:45)
[2024-06-14 06:00] VITALS: BP 119/71; PULSE 116; RESP 17; TEMP 36.8; O2SAT 96
[2024-06-14 08:00] VITALS: BP 119/71; PULSE 116; RESP 17; TEMP 36.8
[2024-06-14] MEDS: acetaminophen 325 mg Tablet 650 MG PO ×2 (08:34→20:33)
[2024-06-14] MEDS: levothyroxine 137 mcg Tablet PO (08:35)
[2024-06-14] MEDS: gabapentin 400 mg Capsule PEG-TUBE ×3 (08:35→20:33)
[2024-06-14] MEDS: fluoxetine 20 mg Capsule 60 MG PEG-TUBE (08:35)
[2024-06-14] MEDS: guaiFENesin-dextromethorphan UDC 10 mL PO ×2 (11:00→20:33)
[2024-06-14 12:00] VITALS: BP 119/71; PULSE 116; RESP 17; TEMP 36.8
--- NOTE | 2024-06-14 13:59 | P.NPUPN_ITS ---
Subjective NPU 2 Subjective: 38-year-old white female with PEG tube p lacement and problems with swallowing with a history of vocal cord paralysis. Patient was reporting some abdominal discomfort today. She had reported that her mood was okay. She had been compliant and cooperative on the milieu. She had reported no problems with swallowing her oral medications. Patient had reported good energy and concentration. No substantial changes were reported since the day prior. Mental Status Exam 2 MSE Comments: This is an obese white female in hospital scrubs with limited grooming and eye contact. No abnormal movements except mild psychomotor retardation. She was cooperative with exam in no acute distress. Speech was decreased in rate but normal in volume and she showed evidence of significant dysarthria and she was limited in her ability to communicate verbally. There was evidence of facial asymmetry. Her mood was described as good. (thumbs up) Her affect appeared less restricted in range. Her thought process was linear and logical as she was able to answer questions by writing them down. Her thought content showed no evidence of homicidal or suicidal ideation. Also she did not appear to be responding to internal stimuli. There was no clear evidence of delusional thinking. Attention and concentration appeared intact and her recent and remote memory appeared grossly intact but none were formally tested. Her insight was limited. Her judgment was fair. Her impulse control appeared limited at this time. Vitals/I&O/Wt Last Vital Signs Temp 98.3 F 06/14/24 12:00 Pulse 116 H 06/14/24 12:00 Resp 17 06/14/24 12:00 BP 119/71 06/14/24 12:00 Pulse Ox 96 06/14/24 06:00 O2 Del Method Room Air 06/14/24 06:00 Data NPU 06/12/24 17:34 06/12/24 17:34 A&P Assessment and plan (1) Major depressive disorder, recurrent episode, moderate with anxious distress: (2) Chronic post-traumatic stress disorder: (3) Panic disorder without agoraphobia: Plan 38-year-old female admitted with suicidal ideation with a history of major depressive disorder and PTSD currently on 96-hour hold returning in less than 24 hours 1.? Encourage individual, group and milieu therapy. 2.? Recommend sober living treatment at the highest level of care to which the patient is willing to commit 3.??Continue Prozac 60mg daily through tube. Discharge to halfway not an option given complexity of medical treatment needed. She is currently homeless but had been living with her partner and we are working with them to provide some support for her while she awaits her placement once level 2 has been established. 4.? Continue every 15 minute checks for safety? 5.??Will attempt to gather collateral information, will complete swallowing study, Continue speech therapy. 6. Consider placement in continued medical care facility as patient homeless and cannot go to halfway with her needs at home with rehabilitation s/p craniotomy. Will talk with her about the prospect of returning to her previous residence while she awaits placement for the level 2. Level 2 hearing help today. 7. Patient reported painful nodule and lower left quadrant of abdomen. Reconsulted medicine to investigate possible etiologies. We will continue to follow hospitalist recommendation. 8. Child protective services/DFS came 06/04/2024 due to her 1 son going to a psychiatric facility and her ex significant other who has some custody reporting he does not want that son back. They met with her and brainstormed ways to manage her children safely and trying to get an understanding of what her trajectory is. 9. Attempt medications orally with plan to consider removal of PEG tube. Hopefully PEG tube can be removed. Involuntary Hold Information 2 96 Hour Hold: 96 Hour Involuntary Admission: Yes 96 Hour Hold Ending Date: 05/29/24 96 Hour Hold Ending Time: 17:10 Attestations U 2 Medical Necessity Statement*: Inpatient hospitalization is medically necessary and the clinically appropriate intervention at this time.? We will monitor/initiate medications and make changes as indicated.?? The patient?s likely length of stay 7-10 days. Awaiting placement to senior care. Coding Level of Care Code Acute Code for Chg Fwd Diagnoses Major depressive disorder, recurrent episode, moderate with anxious distress F33.1 Chronic post-traumatic stress disorder F43.12 Panic disorder without agoraphobia F41.0
[2024-06-14 14:00] VITALS: BP 125/94; PULSE 103; RESP 16; TEMP 37.3; O2SAT 95
[2024-06-14 16:00] VITALS: BP 125/94; PULSE 103; RESP 16; TEMP 37.3
[2024-06-14 20:14] VITALS: BP 125/53; PULSE 106; RESP 18; O2SAT 94
[2024-06-14] MEDS: trazodone 50 mg Tablet PO (20:33)
[2024-06-15] VITALS: BP 125/53; PULSE 106; RESP 18
[2024-06-15 03:59] VITALS: BP 125/53; PULSE 106; RESP 18
[2024-06-15 06:00] VITALS: BP 131/79; PULSE 112; RESP 18; O2SAT 95
[2024-06-15] MEDS: acetaminophen 325 mg Tablet 650 MG PO ×3 (06:01→20:28)
[2024-06-15] MEDS: gabapentin 400 mg Capsule PEG-TUBE ×3 (08:36→20:28)
[2024-06-15] MEDS: fluoxetine 20 mg Capsule 60 MG PEG-TUBE (08:36)
[2024-06-15] MEDS: levothyroxine 137 mcg Tablet PO (08:36)
[2024-06-15 14:00] VITALS: BP 148/67; PULSE 110; RESP 16; TEMP 37.2; O2SAT 94
--- NOTE | 2024-06-15 14:45 | P.NPUPN_ITS ---
Subjective NPU 2 Subjective: 38-year-old white female with PEG tube p lacement and problems with swallowing with a history of vocal cord paralysis. Patient complained of having frequent headaches. She reported a history of worsening headaches since her surgery. She had continued to successfully take meds orally instead of the use of PEG tubes. Patient had been compliant on the milieu and appeared to engage in self- care with reports that her energy was getting better. No substantial changes were reported since the day prior. Mental Status Exam 2 MSE Comments: This is an obese white female in hospital scrubs with limited grooming and eye contact. No abnormal movements except mild psychomotor retardation. She was cooperative with exam in no acute distress. Speech was decreased in rate with some grunting and she showed evidence of significant dysarthria and she was limited in her ability to communicate verbally. There was evidence of facial asymmetry. Her mood was described as okay. (thumbs up) Her affect appeared less restricted in range. Her thought process was linear and logical as she was able to answer questions by writing them down. Her thought content showed no evidence of homicidal or suicidal ideation. Also she did not appear to be responding to internal stimuli. There was no clear evidence of delusional thinking. Attention and concentration appeared intact and her recent and remote memory appeared grossly intact but none were formally tested. Her insight was limited. Her judgment was fair. Her impulse control appeared limited at this time. Vitals/I&O/Wt Last Vital Signs Temp 99.2 F 06/14/24 16:00 Pulse 112 H 06/15/24 06:00 Resp 18 06/15/24 06:00 BP 131/79 06/15/24 06:00 Pulse Ox 95 06/15/24 06:00 O2 Del Method Room Air 06/15/24 06:00 Data NPU 06/12/24 17:34 06/12/24 17:34 A&P Assessment and plan (1) Major depressive disorder, recurrent episode, moderate with anxious distress: (2) Chronic post-traumatic stress disorder: (3) Panic disorder without agoraphobia: Plan 38-year-old female admitted with suicidal ideation with a history of major depressive disorder and PTSD currently on 96-hour hold returning in less than 24 hours 1.? Encourage individual, group and milieu therapy. 2.? Recommend sober living treatment at the highest level of care to which the patient is willing to commit 3.??Continue Prozac 60mg daily through tube. Discharge to prison not an option given complexity of medical treatment needed. She is currently homeless but had been living with her partner and we are working with them to provide some support for her while she awaits her placement once level 2 has been established. 4.? Continue every 15 minute checks for safety? 5.??Will attempt to gather collateral information, will complete swallowing study, Continue speech therapy. 6. Consider placement in continued medical care facility as patient homeless and cannot go to prison with her needs at home with rehabilitation s/p craniotomy. Will talk with her about the prospect of returning to her previous residence while she awaits placement for the level 2. Level 2 hearing help today. 7. Patient reported painful nodule and lower left quadrant of abdomen. Reconsulted medicine to investigate possible etiologies. We will continue to follow hospitalist recommendation. 8. Child protective services/DFS came 06/04/2024 due to her 1 son going to a psychiatric facility and her ex significant other who has some custody reporting he does not want that son back. They met with her and brainstormed ways to manage her children safely and trying to get an understanding of what her trajectory is. 9. Attempt medications orally with plan to consider removal of PEG tube. Hopefully PEG tube can be removed. Involuntary Hold Information 2 96 Hour Hold: 96 Hour Involuntary Admission: Yes 96 Hour Hold Ending Date: 05/29/24 96 Hour Hold Ending Time: 17:10 Attestations NPU 2 Medical Necessity Statement*: Inpatient hospitalization is medically necessary and the clinically appropriate intervention at this time.? We will monitor/initiate medications and make changes as indicated.?? The patient?s likely length of stay 7-10 days. Awaiting placement to long term. Coding Level of Care Code Acute Code for Chg Fwd Diagnoses Major depressive disorder, recurrent episode, moderate with anxious distress F33.1 Chronic post-traumatic stress disorder F43.12 Panic disorder without agoraphobia F41.0
[2024-06-15 16:00] VITALS: BP 148/67; PULSE 110; RESP 16; TEMP 37.2
[2024-06-15] MEDS: trazodone 50 mg Tablet PO (20:28)
[2024-06-15] MEDS: hyDROXYzine 25 mg Capsule 50 MG PO (20:28)
[2024-06-15] MEDS: cyclobenzaprine 10 mg Tablet PO (20:29)
[2024-06-15 21:46] VITALS: BP 113/79; PULSE 99; RESP 18; TEMP 36.8; O2SAT 98
[2024-06-16 06:00] VITALS: BP 133/99; PULSE 114; RESP 17; TEMP 36.6; O2SAT 93
[2024-06-16] MEDS: acetaminophen 325 mg Tablet 650 MG PO ×2 (06:19→17:07)
[2024-06-16] MEDS: gabapentin 400 mg Capsule PEG-TUBE ×3 (08:29→20:02)
[2024-06-16] MEDS: fluoxetine 20 mg Capsule 60 MG PEG-TUBE (08:29)
[2024-06-16] MEDS: levothyroxine 137 mcg Tablet PO (08:29)
--- NOTE | 2024-06-16 12:24 | P.NPUPN_ITS ---
Subjective NPU 2 Subjective: 38-year-old white female with PEG tube p lacement and problems with swallowing with a history of vocal cord paralysis. Patient complained of having frequent headaches since craniotomy. She reported her mood was okay. She was compliant on the unit. She continued to eat without the use of the PEG tube. Mental Status Exam 2 MSE Comments: This is an obese white female in hospital scrubs with limited grooming and eye contact. No abnormal movements except mild psychomotor retardation. She was cooperative with exam in no acute distress. Speech was decreased in rate with some grunting and she showed evidence of significant dysarthria and she was limited in her ability to communicate verbally. There was evidence of facial asymmetry. Her mood was described as good. Her affect appeared less restricted in range. Her thought process was linear and logical as she was able to answer questions by writing them down. Her thought content showed no evidence of homicidal or suicidal ideation. Also she did not appear to be responding to internal stimuli. There was no clear evidence of delusional thinking. Attention and concentration appeared intact and her recent and remote memory appeared grossly intact but none were formally tested. Her insight was limited. Her judgment was fair. Her impulse control appeared limited at this time. Vitals/I&O/Wt Last Vital Signs Temp 98 F 06/16/24 06:00 Pulse 114 H 06/16/24 06:00 Resp 17 06/16/24 06:00 BP 133/99 06/16/24 06:00 Pulse Ox 93 06/16/24 06:00 O2 Del Method Room Air 06/16/24 06:00 Data NPU 06/12/24 17:34 06/12/24 17:34 A&P Assessment and plan (1) Major depressive disorder, recurrent episode, moderate with anxious distress: (2) Chronic post-traumatic stress disorder: (3) Panic disorder without agoraphobia: Plan 38-year-old female admitted with suicidal ideation with a history of major depressive disorder and PTSD currently on 96-hour hold returning in less than 24 hours 1.? Encourage individual, group and milieu therapy. 2.? Recommend sober living treatment at the highest level of care to which the patient is willing to commit 3.??Continue Prozac 60mg daily through tube. Discharge to correction not an option given complexity of medical treatment needed. She is currently homeless but had been living with her partner and we are working with them to provide some support for her while she awaits her placement once level 2 has been established. 4.? Continue every 15 minute checks for safety? 5.??Will attempt to gather collateral information, will complete swallowing study, Continue speech therapy. 6. Consider placement in continued medical care facility as patient homeless and cannot go to correction with her needs at home with rehabilitation s/p craniotomy. Will talk with her about the prospect of returning to her previous residence while she awaits placement for the level 2. Level 2 hearing help today. 7. Patient reported painful nodule and lower left quadrant of abdomen. Reconsulted medicine to investigate possible etiologies. We will continue to follow hospitalist recommendation. 8. Child protective services/DFS came 06/04/2024 due to her 1 son going to a psychiatric facility and her ex significant other who has some custody reporting he does not want that son back. They met with her and brainstormed ways to manage her children safely and trying to get an understanding of what her trajectory is. 9. Attempt medications orally with plan to consider removal of PEG tube. Hopefully PEG tube can be removed. 10. Postcraniotomy headache-consider anticonvulsant or muscle relaxant for treatment. Routine flexeril 5mg tid beginning today. Involuntary Hold Information 2 96 Hour Hold: 96 Hour Involuntary Admission: Yes 96 Hour Hold Ending Date: 05/29/24 96 Hour Hold Ending Time: 17:10 Attestations NPU 2 Medical Necessity Statement*: Inpatient hospitalization is medically necessary and the clinically appropriate intervention at this time.? We will monitor/initiate medications and make changes as indicated.?? The patient?s likely length of stay 7-10 days. Awaiting placement [facility]. Coding Level of Care Code Acute Code for Chg Fwd Diagnoses Major depressive disorder, recurrent episode, moderate with anxious distress F33.1 Chronic post-traumatic stress disorder F43.12 Panic disorder without agoraphobia F41.0
[2024-06-16 14:00] VITALS: BP 130/80; PULSE 116; RESP 18; O2SAT 96
[2024-06-16] MEDS: cyclobenzaprine 10 mg Tablet 5 MG PO ×2 (14:57→20:02)
--- NOTE | 2024-06-16 16:19 | PC.NURSE ---
This filing writer asked Dr. Alexis about what the plan is for patient's PEG removal. Dr. Alexis said it would be in the patient's best interest to have the PEG tube removed during her stay, that he will check with medicine either Tuesday or Tuesday to see about facilitating this.
[2024-06-16] MEDS: trazodone 50 mg Tablet PO (20:02)
[2024-06-16 21:35] VITALS: BP 133/92; PULSE 102; RESP 17; TEMP 36.7; O2SAT 99
[2024-06-17] MEDS: acetaminophen 325 mg Tablet 650 MG PO ×2 (04:49→11:38)
[2024-06-17 06:00] VITALS: BP 122/86; PULSE 114; RESP 18; TEMP 36.6; O2SAT 92
[2024-06-17] MEDS: cyclobenzaprine 10 mg Tablet 5 MG PO ×3 (08:27→20:48)
[2024-06-17] MEDS: gabapentin 400 mg Capsule PEG-TUBE ×3 (08:27→20:48)
[2024-06-17] MEDS: levothyroxine 137 mcg Tablet PO (08:27)
[2024-06-17] MEDS: fluoxetine 20 mg Capsule 60 MG PEG-TUBE (08:28)
[2024-06-17 12:00] VITALS: BP 122/86; PULSE 114; RESP 18; TEMP 36.6
--- NOTE | 2024-06-17 12:22 | P.NPUPN_ITS ---
Subjective NPU 2 Subjective: 38-year-old white female with PEG tube p lacement and problems with swallowing with a history of vocal cord paralysis. The patient had continued to report some headaches. She had reported continued success without the PEG tube and consumption of her medications and food. The patient had no sleep continuity disruption other than occasional awakenings. Patient reported improved energy. Patient complained of having frequent headaches since craniotomy. She reported her mood was okay. She was compliant on the unit. She continued to eat without the use of the PEG tube. Mental Status Exam 2 MSE Comments: This is an obese white female in hospital scrubs with limited grooming and eye contact. No abnormal movements except mild psychomotor retardation. She was cooperative with exam in no acute distress. Speech was decreased in rate with some grunting and she showed evidence of significant dysarthria and she was limited in her ability to communicate verbally. There was evidence of facial asymmetry. Her mood was described as okay (thumbs up) Her affect appeared less restricted in range. Her thought process was linear and logical as she was able to answer questions by writing them down. Her thought content showed no evidence of homicidal or suicidal ideation. Also she did not appear to be responding to internal stimuli. There was no clear evidence of delusional thinking. Attention and concentration appeared intact and her recent and remote memory appeared grossly intact but none were formally tested. Her insight was limited. Her judgment was fair. Her impulse control appeared limited at this time. Vitals/I&O/Wt Last Vital Signs Temp 98 F 06/17/24 12:00 Pulse 114 H 06/17/24 12:00 Resp 18 06/17/24 12:00 BP 122/86 06/17/24 12:00 Pulse Ox 92 06/17/24 06:00 O2 Del Method Room Air 06/17/24 06:00 Weight last 48 hrs Weight 89.902 kg Data NPU 06/12/24 17:34 06/12/24 17:34 A&P Assessment and plan (1) Major depressive disorder, recurrent episode, moderate with anxious distress: (2) Chronic post-traumatic stress disorder: (3) Panic disorder without agoraphobia: Plan 38-year-old female admitted with suicidal ideation with a history of major depressive disorder and PTSD currently on 96-hour hold returning in less than 24 hours 1.? Encourage individual, group and milieu therapy. 2.? Recommend sober living treatment at the highest level of care to which the patient is willing to commit 3.??Continue Prozac 60mg daily through tube. Discharge to [facility] not an option given complexity of medical treatment needed. She is currently homeless but had been living with her partner and we are working with them to provide some support for her while she awaits her placement once level 2 has been established. 4.? Continue every 15 minute checks for safety? 5.??Will attempt to gather collateral information, will complete swallowing study, Continue speech therapy. 6. Consider placement in continued medical care facility as patient homeless and cannot go to [facility] with her needs at home with rehabilitation s/p craniotomy. Will talk with her about the prospect of returning to her previous residence while she awaits placement for the level 2. Level 2 hearing help today. 7. Patient reported painful nodule and lower left quadrant of abdomen. Reconsulted medicine to investigate possible etiologies. We will continue to follow hospitalist recommendation. 8. Child protective services/DFS came 06/04/2024 due to her 1 son going to a psychiatric facility and her ex significant other who has some custody reporting he does not want that son back. They met with her and brainstormed ways to manage her children safely and trying to get an understanding of what her trajectory is. 9. Attempt medications orally with plan to consider removal of PEG tube. Hopefully PEG tube can be removed. 10. Postcraniotomy headache-consider anticonvulsant or muscle relaxant for treatment. Continue flexeril 5mg tid beginning today. Involuntary Hold Information 2 96 Hour Hold: 96 Hour Involuntary Admission: Yes 96 Hour Hold Ending Date: 05/29/24 96 Hour Hold Ending Time: 17:10 Attestations NPU 2 Medical Necessity Statement*: Inpatient hospitalization is medically necessary and the clinically appropriate intervention at this time.? We will monitor/initiate medications and make changes as indicated.?? The patient?s likely length of stay 7-10 days. [facility] Coding Level of Care Code Acute Code for Chg Fwd Diagnoses Major depressive disorder, recurrent episode, moderate with anxious distress F33.1 Chronic post-traumatic stress disorder F43.12 Panic disorder without agoraphobia F41.0
[2024-06-17 14:00] VITALS: BP 122/87; PULSE 119; RESP 18; TEMP 36.9; O2SAT 95
[2024-06-17] MEDS: ibuprofen 600 mg Tablet PO (14:27)
[2024-06-17 16:00] VITALS: BP 122/87; PULSE 119; RESP 18; TEMP 36.9
[2024-06-17] MEDS: ondansetron 4 MG Tablet PO (18:43)
[2024-06-17] MEDS: guaiFENesin-dextromethorphan UDC 10 mL PO (20:48)
[2024-06-17] MEDS: trazodone 50 mg Tablet PO (20:48)
[2024-06-17 21:20] VITALS: BP 118/83; PULSE 123; RESP 18; TEMP 36.6; O2SAT 96
[2024-06-18 06:00] VITALS: BP 110/72; PULSE 116; RESP 18; TEMP 36.8; O2SAT 95
[2024-06-18] MEDS: levothyroxine 137 mcg Tablet PO (08:14)
[2024-06-18] MEDS: cyclobenzaprine 10 mg Tablet 5 MG PO ×3 (08:14→20:12)
[2024-06-18] MEDS: gabapentin 400 mg Capsule PEG-TUBE ×3 (08:14→20:12)
[2024-06-18] MEDS: fluoxetine 20 mg Capsule 60 MG PEG-TUBE (08:14)
[2024-06-18] MEDS: ibuprofen 600 mg Tablet PO (09:47)
--- NOTE | 2024-06-18 12:39 | P.NPUPN_ITS ---
Subjective NPU 2 Subjective: 38-year-old white female with PEG tube p lacement and problems with swallowing with a history of vocal cord paralysis. No significant changes appreciated. Patient had no side effects from her medication. She had not used PEG tube in several days including taking all of her medications orally. Patient had reported feeling less depressed. She was pleasant and cooperative while attending groups. Patient continued to remain patient while attempting to find a group home for the patient to reside at. Mental Status Exam 2 MSE Comments: This is an obese white female in hospital scrubs with limited grooming and eye contact. No abnormal involuntary motor movements except mild psychomotor retardation. She was cooperative with exam in no acute distress. Speech was decreased in rate with some grunting and she showed evidence of significant dysarthria and she was limited in her ability to communicate verbally. There was evidence of mild facial asymmetry. Her mood was described as good (thumbs up) Her affect appeared less restricted in range. Her thought process was linear and logical as she was able to answer questions by writing them down. Her thought content showed no evidence of homicidal or suicidal ideation. Also she did not appear to be responding to internal stimuli. There was no clear evidence of delusional thinking. Attention and concentration appeared intact and her recent and remote memory appeared grossly intact but none were formally tested. Her insight was limited. Her judgment was fair. Her impulse control appeared limited at this time. Vitals/I&O/Wt Last Vital Signs Temp 98.3 F 06/18/24 06:00 Pulse 116 H 06/18/24 06:00 Resp 18 06/18/24 06:00 BP 110/72 06/18/24 06:00 Pulse Ox 95 06/18/24 06:00 O2 Del Method Room Air 06/18/24 06:00 Weight last 48 hrs Weight 89.902 kg Data NPU 06/12/24 17:34 06/12/24 17:34 A&P Assessment and plan (1) Major depressive disorder, recurrent episode, moderate with anxious distress: (2) Chronic post-traumatic stress disorder: (3) Panic disorder without agoraphobia: Plan 38-year-old female admitted with suicidal ideation with a history of major depressive disorder and PTSD currently on 96-hour hold returning in less than 24 hours 1.? Encourage individual, group and milieu therapy. 2.? Recommend sober living treatment at the highest level of care to which the patient is willing to commit 3.??Continue Prozac 60mg daily through tube. Discharge to longterm not an option given complexity of medical treatment needed. She is currently homeless but had been living with her partner and we are working with them to provide some support for her while she awaits her placement once level 2 has been established. 4.? Continue every 15 minute checks for safety? 5.??Will attempt to gather collateral information, will complete swallowing study, Continue speech therapy. 6. Consider placement in continued medical care facility as patient homeless and cannot go to longterm with her needs at home with rehabilitation s/p craniotomy. Will talk with her about the prospect of returning to her previous residence while she awaits placement for the level 2. Level 2 hearing help today. 7. Patient reported painful nodule and lower left quadrant of abdomen. Reconsulted medicine to investigate possible etiologies. We will continue to follow hospitalist recommendation. 8. Child protective services/DFS came 06/04/2024 due to her 1 son going to a psychiatric facility and her ex significant other who has some custody reporting he does not want that son back. They met with her and brainstormed ways to manage her children safely and trying to get an understanding of what her trajectory is. 9. Attempt medications orally with plan to consider removal of PEG tube. Hopefully PEG tube can be removed. 10. Postcraniotomy headache-consider anticonvulsant or muscle relaxant for treatment. Continue flexeril 5mg tid for headaches s/p craniotomy. Involuntary Hold Information 2 96 Hour Hold: 96 Hour Involuntary Admission: Yes 96 Hour Hold Ending Date: 05/29/24 96 Hour Hold Ending Time: 17:10 Attestations NPU 2 Medical Necessity Statement*: Inpatient hospitalization is medically necessary and the clinically appropriate intervention at this time.? We will monitor/initiate medications and make changes as indicated.?? The patient?s likely length of stay 7-10 days. Awaiting placement to group home. Coding Level of Care Code Acute Code for Chg Fwd Diagnoses Major depressive disorder, recurrent episode, moderate with anxious distress F33.1 Chronic post-traumatic stress disorder F43.12 Panic disorder without agoraphobia F41.0
[2024-06-18 14:00] VITALS: BP 99/56; PULSE 104; RESP 16; TEMP 36.6; O2SAT 91
[2024-06-18] MEDS: trazodone 50 mg Tablet PO (20:12)
[2024-06-18 22:00] VITALS: BP 119/72; PULSE 108; RESP 18; TEMP 37.4; O2SAT 93
[2024-06-19 06:00] VITALS: BP 118/75; PULSE 114; RESP 18; TEMP 37.2; O2SAT 93
[2024-06-19] MEDS: acetaminophen 325 mg Tablet 650 MG PO (07:06)
[2024-06-19] MEDS: fluoxetine 20 mg Capsule 60 MG PEG-TUBE (09:05)
[2024-06-19] MEDS: levothyroxine 137 mcg Tablet PO (09:06)
[2024-06-19] MEDS: cyclobenzaprine 10 mg Tablet 5 MG PO ×3 (09:06→20:33)
[2024-06-19] MEDS: gabapentin 400 mg Capsule PEG-TUBE ×3 (09:06→20:33)
[2024-06-19] MEDS: diclofenac 75 mg DR Tablet PO (09:06)
[2024-06-19 14:00] VITALS: BP 108/73; PULSE 104; RESP 18; TEMP 37.3; O2SAT 94
[2024-06-19] MEDS: ibuprofen 600 mg Tablet PO (14:53)
--- NOTE | 2024-06-19 15:28 | P.NPUPN_ITS ---
Subjective NPU 2 Subjective: Patient presented today denying any significant changes since our last encounter. She is accepting of the circumstance of still awaiting placement as she has no alternatives. She denied any issues with the medication denied any side effects of the medication and denied any new or pressing issues. Mental Status Exam 2 MSE Comments: This is an obese white female in hospital scrubs with limited grooming and eye contact. No abnormal involuntary motor movements except mild psychomotor retardation. She was cooperative with exam in no acute distress. Speech was decreased in rate with some grunting and she showed evidence of significant dysarthria and she was limited in her ability to communicate verbally. There was evidence of mild facial asymmetry. Her mood was described as good (thumbs up) Her affect appeared less restricted in range. Her thought process was linear and logical as she was able to answer questions by writing them down. Her thought content showed no evidence of homicidal or suicidal ideation. Also she did not appear to be responding to internal stimuli. There was no clear evidence of delusional thinking. Attention and concentration appeared intact and her recent and remote memory appeared grossly intact but none were formally tested. Her insight was limited. Her judgment was fair. Her impulse control appeared limited at this time. Vitals/I&O/Wt Last Vital Signs Temp 99.1 F 06/19/24 14:00 Pulse 104 H 06/19/24 14:00 Resp 18 06/19/24 14:00 BP 108/73 06/19/24 14:00 Pulse Ox 94 06/19/24 14:00 O2 Del Method Room Air 06/19/24 06:00 O2 Flow Rate 94 06/19/24 14:00 Data NPU 06/12/24 17:34 06/12/24 17:34 A&P Assessment and plan (1) Major depressive disorder, recurrent episode, moderate with anxious distress: (2) Chronic post-traumatic stress disorder: (3) Panic disorder without agoraphobia: Plan 38-year-old female admitted with suicidal ideation with a history of major depressive disorder and PTSD currently on 96-hour hold returning in less than 24 hours 1.? Encourage individual, group and milieu therapy. 2.? Recommend sober living treatment at the highest level of care to which the patient is willing to commit 3.??Continue Prozac 60mg daily through tube. Discharge to [facility] not an option given complexity of medical treatment needed. She is currently homeless but had been living with her partner and we are working with them to provide some support for her while she awaits her placement once level 2 has been established. 4.? Continue every 15 minute checks for safety? 5.??Will attempt to gather collateral information, will complete swallowing study, Continue speech therapy. 6. Consider placement in continued medical care facility as patient homeless and cannot go to [facility] with her needs at home with rehabilitation s/p craniotomy. Will talk with her about the prospect of returning to her previous residence while she awaits placement for the level 2. Level 2 hearing help today. 7. Patient reported painful nodule and lower left quadrant of abdomen. Reconsulted medicine to investigate possible etiologies. We will continue to follow hospitalist recommendation. 8. Child protective services/DFS came 06/04/2024 due to her 1 son going to a psychiatric facility and her ex significant other who has some custody reporting he does not want that son back. They met with her and brainstormed ways to manage her children safely and trying to get an understanding of what her trajectory is. 9. Attempt medications orally with plan to consider removal of PEG tube. Hopefully PEG tube can be removed. 10. Postcraniotomy headache-consider anticonvulsant or muscle relaxant for treatment. Continue flexeril 5mg tid for headaches s/p craniotomy. Involuntary Hold Information 2 96 Hour Hold: 96 Hour Involuntary Admission: Yes 96 Hour Hold Ending Date: 05/29/24 96 Hour Hold Ending Time: 17:10 Attestations NPU 2 Medical Necessity Statement*: Inpatient hospitalization is medically necessary and the clinically appropriate intervention at this time.? We will monitor/initiate medications and make changes as indicated.?? The patient?s likely length of stay 7-10 days. Awaiting placement to shelter. Coding Level of Care Code Acute Code for Chg Fwd Diagnoses Major depressive disorder, recurrent episode, moderate with anxious distress F33.1 Chronic post-traumatic stress disorder F43.12 Panic disorder without agoraphobia F41.0
[2024-06-19 19:22] VITALS: BP 126/88; PULSE 100; RESP 18; TEMP 37; O2SAT 94
[2024-06-19] MEDS: guaiFENesin-dextromethorphan UDC 10 mL PO (20:33)
[2024-06-19] MEDS: trazodone 50 mg Tablet PO (20:33)
[2024-06-20 06:00] VITALS: BP 111/76; PULSE 98; RESP 16; O2SAT 94
[2024-06-20] MEDS: gabapentin 400 mg Capsule PEG-TUBE ×3 (08:02→20:09)
[2024-06-20] MEDS: fluoxetine 20 mg Capsule 60 MG PEG-TUBE (08:02)
[2024-06-20] MEDS: levothyroxine 137 mcg Tablet PO (08:02)
[2024-06-20] MEDS: cyclobenzaprine 10 mg Tablet 5 MG PO ×3 (08:02→20:09)
[2024-06-20] MEDS: acetaminophen 325 mg Tablet 650 MG PO (13:59)
[2024-06-20 14:00] VITALS: BP 115/88; PULSE 101; RESP 16; TEMP 37.3; O2SAT 96
--- NOTE | 2024-06-20 14:54 | P.NPUPN_ITS ---
Subjective NPU 2 Subjective: Patient presents today unchanged per staff reports and direct observation. She continues to be cooperative and reports a plan to follow through with placement recommendations. She continues to communicate as best she can through writing things down but never more complicated. Otherwise he has been no problem and is awaiting replacement. She denies any side effects to medication. Mental Status Exam 2 MSE Comments: This is an obese white female in hospital scrubs with limited grooming and eye contact. No abnormal involuntary motor movements except mild psychomotor retardation. She was cooperative with exam in no acute distress. Speech was decreased in rate with some grunting and she showed evidence of significant dysarthria and she was limited in her ability to communicate verbally. There was evidence of mild facial asymmetry. Her mood was described as good (thumbs up) Her affect appeared less restricted in range. Her thought process was linear and logical as she was able to answer questions by writing them down. Her thought content showed no evidence of homicidal or suicidal ideation. Also she did not appear to be responding to internal stimuli. There was no clear evidence of delusional thinking. Attention and concentration appeared intact and her recent and remote memory appeared grossly intact but none were formally tested. Her insight was limited. Her judgment was fair. Her impulse control appeared limited at this time. Vitals/I&O/Wt Last Vital Signs Temp 99.2 F 06/20/24 14:00 Pulse 101 H 06/20/24 14:00 Resp 16 06/20/24 14:00 BP 115/88 06/20/24 14:00 Pulse Ox 96 06/20/24 14:00 O2 Del Method Room Air 06/20/24 14:00 O2 Flow Rate 94 06/19/24 14:00 Data NPU 06/12/24 17:34 06/12/24 17:34 A&P Assessment and plan (1) Major depressive disorder, recurrent episode, moderate with anxious distress: (2) Chronic post-traumatic stress disorder: (3) Panic disorder without agoraphobia: Plan 38-year-old female admitted with suicidal ideation with a history of major depressive disorder and PTSD currently on 96-hour hold returning in less than 24 hours 1.? Encourage individual, group and milieu therapy. 2.? Recommend sober living treatment at the highest level of care to which the patient is willing to commit 3.??Continue Prozac 60mg daily through tube. [facility] given complexity of medical treatment needed. She is currently homeless but had been living with her partner and we are working with them to provide some support for her while she awaits her placement once level 2 has been established. 4.? Continue every 15 minute checks for safety? 5.??Will attempt to gather collateral information, will complete swallowing study, Continue speech therapy. 6. Consider placement in continued medical care facility as patient homeless and cannot [facility] with her needs at home with rehabilitation s/p craniotomy. Will talk with her about the prospect of returning to her previous residence while she awaits placement for the level 2. Level 2 hearing help today. 7. Patient reported painful nodule and lower left quadrant of abdomen. Reconsulted medicine to investigate possible etiologies. We will continue to follow hospitalist recommendation. 8. Child protective services/DFS came 06/04/2024 due to her 1 son going to a psychiatric facility and her ex significant other who has some custody reporting he does not want that son back. They met with her and brainstormed ways to manage her children safely and trying to get an understanding of what her trajectory is. 9. Attempt medications orally with plan to consider removal of PEG tube. Hopefully PEG tube can be removed. 10. Postcraniotomy headache-consider anticonvulsant or muscle relaxant for treatment. Continue flexeril 5mg tid for headaches s/p craniotomy. Involuntary Hold Information 2 96 Hour Hold: 96 Hour Involuntary Admission: Yes 96 Hour Hold Ending Date: 05/29/24 96 Hour Hold Ending Time: 17:10 Attestations NPU 2 Medical Necessity Statement*: Inpatient hospitalization is medically necessary and the clinically appropriate intervention at this time.? We will monitor/initiate medications and make changes as indicated.?? The patient?s likely length of stay 7-10 days. Awaiting placement to [facility]. Coding Level of Care Code Acute Code for Chg Fwd Diagnoses Major depressive disorder, recurrent episode, moderate with anxious distress F33.1 Chronic post-traumatic stress disorder F43.12 Panic disorder without agoraphobia F41.0
[2024-06-20 19:42] VITALS: BP 123/89; PULSE 100; RESP 20; TEMP 37.2; O2SAT 97
[2024-06-20] MEDS: ibuprofen 600 mg Tablet PO (20:09)
[2024-06-20] MEDS: trazodone 50 mg Tablet PO (20:10)
[2024-06-21 06:00] VITALS: BP 112/76; PULSE 78; RESP 16; O2SAT 94
[2024-06-21] MEDS: levothyroxine 137 mcg Tablet PO (08:02)
[2024-06-21] MEDS: fluoxetine 20 mg Capsule 60 MG PEG-TUBE (08:02)
[2024-06-21] MEDS: acetaminophen 325 mg Tablet 650 MG PO (08:02)
[2024-06-21] MEDS: gabapentin 400 mg Capsule PEG-TUBE ×2 (08:03→15:07)
[2024-06-21] MEDS: cyclobenzaprine 10 mg Tablet 5 MG PO ×2 (08:03→15:07)
--- NOTE | 2024-06-21 13:44 | PC.NURSE ---
Consult order placed per verbal order from Dr. Castellano for a stat consult from Dr. Crooks for PEG Tube Patency for facility placement.
[2024-06-21 14:00] VITALS: BP 123/70; PULSE 114; RESP 16; TEMP 37.4; O2SAT 92
--- NOTE | 2024-06-21 14:30 | P.CONIM_ITS ---
Providers/Reason For Consult 2 Consulting Physician/Specialty*: Dr. Maged Crooks, DO/General Surgery Reason for Consult*: Leaking PEG tube Attending Physician: Kyler Alexis MD History of Present Illness History of Present Illness Magalie Dobbs is a 38 year old female who had a PEG tube placed back in December. Recently has been leaking. She has not been using her PEG tube however. She is eating through her mouth and taking pills. She denies any abdominal pain, nausea, emesis, diarrhea, constipation, hematochezia and/or melena Review of Systems 2 General: Reports: 10 or more systems reviewed and unremarkable except in HPI and below Medications/Allergies Home Medications Medication Instructions Recorded Confirmed Last Taken Type acetaminophen 650 mg 650 mg PO Q8H PRN pain 01/26/21 05/22/24 04/02/21 History tablet,extended release (Tylenol Arthritis Pain) diclofenac sodium 75 mg 75 mg PO BID PRN pain 30 days #60 10/04/23 05/22/24 Unknown Rx tablet,delayed release tabs levothyroxine 137 mcg tablet 137 mcg PO DAILY 90 days #90 tabs 11/19/23 05/22/24 1 Day Ago Rx ~05/19/24 cyclobenzaprine 5 mg tablet 10 mg PO BEDTIME PRN muscle spasm 12/27/23 05/22/24 Unknown History diphenhydramine HCl 25 mg capsule 25 mg PO TID PRN ALLERGIES 12/27/23 05/22/24 Unknown History (Benadryl) hydroxyzine pamoate 50 mg capsule 50 mg PO BID PRN Anxiety 12/27/23 05/22/24 1 Day Ago History ~05/19/24 ibuprofen 200 mg tablet 1,000 mg PO Q6H PRN Pain 12/27/23 05/22/24 12/26/23 History fluoxetine 40 mg capsule 40 mg feeding tube DAILY 05/20/24 05/22/24 Unknown History gabapentin 400 mg capsule 400 mg feeding tube TID 05/20/24 05/22/24 Unknown History Allergies Allergy/AdvReac Type Severity Reaction Status Date / Time hydrocodone Allergy ALGY-Swell Verified 05/20/24 01:37 Lip/Tongue/Throat oxycodone [From Percocet] Allergy ALGY-Swell Verified 05/20/24 01:37 Lip/Tongue/Throat Influenza Virus Vaccines AdvReac Intermediate ADR-Muscle Verified 01/10/24 20:14 Pain Current Medications Generic Name Dose Route Start Last Admin Trade Name Freq PRN Reason Stop Dose Admin Acetaminophen 650 mg 05/22/24 18:16 06/21/24 08:02 Acetaminophen 325 Mg Tablet PO 650 mg Q4H PRN Administration MILD PAIN Calcium Carbonate 1,000 mg 05/23/24 18:55 05/30/24 16:23 Calcium Carbonate 500 Mg Chew Tablet PO 1,000 mg Q4H PRN Administration HEARTBURN Cyclobenzaprine HCl 5 mg 06/16/24 15:00 06/21/24 08:03 Cyclobenzaprine 10 Mg Tablet PO 5 mg TID PHAM Administration Diclofenac Sodium 75 mg 05/22/24 18:41 06/19/24 09:[address] Tablet PO 75 mg BID PRN Administration pain Diphenhydramine HCl 25 mg 05/22/24 18:41 05/24/24 12:07 Diphenhydramine 25 Mg Capsule PO 25 mg TID PRN Administration ALLERGIES Fluoxetine HCl 60 mg 05/24/24 09:00 06/21/24 08:02 Fluoxetine 20 Mg Capsule PEG-TUBE 60 mg DAILY PHAM Administration Fluticasone Propionate 1 spray 06/01/24 09:47 06/05/24 08:18 Fluticasone Nasal [place] 16gm Btl NASAL 1 spray BID PRN Administration ALLERGIES Gabapentin 400 mg 05/22/24 21:00 06/21/24 08:03 Gabapentin 400 Mg Capsule PEG-TUBE 400 mg TID PHAM Administration Guaifenesin/Dextromethorphan 10 ml 05/27/24 19:02 06/19/24 20:33 Guaifenesin-Dextromethorphan Udc 10 Ml PO 10 ml Q4H PRN Administration COUGH Hydroxyzine Pamoate 50 mg 05/22/24 18:16 06/15/24 20:28 Hydroxyzine 25 Mg Capsule PO 50 mg Q6H PRN Administration ANXIETY Hydroxyzine Pamoate 50 mg 05/22/24 18:41 06/02/24 21:10 Hydroxyzine 25 Mg Capsule PEG-TUBE 50 mg BID PRN Administration Anxiety Ibuprofen 600 mg 05/22/24 18:16 06/20/24 20:09 Ibuprofen 600 Mg Tablet PO 600 mg Q6H PRN Administration MODERATE PAIN Levothyroxine Sodium 137 mcg 05/23/24 09:00 06/21/24 08:02 Levothyroxine 137 Mcg Tablet PO 137 mcg DAILY PHAM Administration Ondansetron HCl 4 mg 05/22/24 18:16 06/17/24 18:43 Ondansetron 4 Mg Tablet PO 4 mg Q6H PRN Administration NAUSEA AND VOMITING Phenol 3 spray 06/04/24 08:05 06/05/24 08:45 Phenol Oral [place] 177 Ml MUCOUS MEM 3 spray Q2H PRN Administration SORE THROAT Trazodone HCl 50 mg 05/22/24 18:16 06/20/24 20:10 Trazodone 50 Mg Tablet PO 50 mg BEDTIME PRN Administration SLEEP PFSH Acute 2 PFSH: Medical History Nicotine dependence, other tobacco product, uncomplicated Vaping 6 mg Nicotine Chronic post-traumatic stress disorder Major depressive disorder, recurrent episode, moderate with anxious distress Panic disorder without agoraphobia Urolithiasis Surgical History Hx of hysterectomy Hx of cholecystectomy Family History Mother Diabetes CAD (coronary artery disease), Onset Age: 59 Brother CAD (coronary artery disease), Onset Age: 30 Social History Smoking and tobacco/nicotine status: current every day tobacco/nicotine user (vape) Alcohol intake: former Substance/Drug Use: former Adopted: No Caregiver/support person: No Lives independently: Yes Household members: significant other and children Housing: Manufactured/Mobile home Marital status: Single Number of children: 2 Number of grandchildren: 0 Highest education level completed: High School Graduate Current occupational status: disabled Current occupational exposures/hazards: No Pets and animals: Yes Pets & animals: cat(s) Leisure activites: art and other Leisure activities details: Watch TV Sexually active: Yes Do you think of yourself as: Straight/Heterosexual Current gender identity: Female Mary/Christianity: None Special mary needs: No Female Reproductive History: Para: 2 Vitals/I&O/Wt Last Vital Signs Temp 99.0 F 06/20/24 19:42 Pulse 78 06/21/24 06:00 Resp 16 06/21/24 06:00 BP 112/76 06/21/24 06:00 Pulse Ox 94 06/21/24 06:00 O2 Del Method Room Air 06/20/24 14:00 O2 Flow Rate 94 06/19/24 14:00 Physical Exam 2 Narrative: General : Patient is well developed , no acute distress, oriented x3 Head : Normal cephalic, a-traumatic. Ears : Pinnae and external canal are normal. Hearing is normal. Eyes : PERRLA, Sclera and injection are normal. No conjunctival discharge. Nose : Mucous membranes are without erythema. Throat : buccal mucosa is normal, gums are without significant recession or hypertrophy. Lungs : Equal chest rise bilaterally, no use of accessory muscles, trachea is midline. Cor : Rate and rhythm are normal. Abdomen : Soft, ND, NT, no g/r/m Extremities : No edema, no cyanosis or clubbing, dorsalis pedis pulses are present bilaterally, non-tender to palpation of calves. Upper extremities are normal bilaterally. Back : non-tender to palpation, no CVA tenderness. Neuro : CN II - XII intact, Upper and lower extremities have equal and full strength Data 06/12/24 17:34 06/12/24 17:34 A&P Assessment and plan (1) PEG tube malfunction: Plan PEG tube was removed and bandage was placed Leave bandage in place for 2 days and then remove Surgically stable for discharge Coding Level of Care Code 57646 Diagnoses PEG tube malfunction K94.23
--- NOTE | 2024-06-21 14:34 | PC.NURSE ---
pt peg tube removed by DOCTOR KAMARI VERBAL ORDERS STATE TO LEAVE BANDAGE ON FOR 48 HOURS THEN REMOVE, AN LEAVE ALONE.
--- NOTE | 2024-06-21 14:34 | DCPLANNER ---
IMM completed 06/21/2024 @ 8673. Pt was given a copy of rights.
--- NOTE | 2024-06-21 14:46 | W.PM.NPUDCS ---
Diagnoses at Discharge Discharge Diagnosis (1) PEG tube malfunction: Status: Acute Reason for Visit Reason for Visit: 96 Hold Involuntary Hold Information 96 Hour Hold: 96 Hour Involuntary Admission: Yes 96 Hour Hold Ending Date: 05/29/24 96 Hour Hold Ending Time: 17:10 Mental Status Exam MSE Comments: This is an obese white female in hospital scrubs with limited grooming and eye contact. No abnormal involuntary motor movements except mild psychomotor retardation. She was cooperative with exam in no acute distress. Speech was decreased in rate with some grunting and she showed evidence of significant dysarthria and she was limited in her ability to communicate verbally. There was evidence of mild facial asymmetry. Her mood was described as good (thumbs up) Her affect appeared less restricted in range. Her thought process was linear and logical as she was able to answer questions by writing them down. Her thought content showed no evidence of homicidal or suicidal ideation. Also she did not appear to be responding to internal stimuli. There was no clear evidence of delusional thinking. Attention and concentration appeared intact and her recent and remote memory appeared grossly intact but none were formally tested. Her insight was limited. Her judgment was fair. Her impulse control appeared limited at this time. Discharge Data Studies Completed and Pending: Completed Studies During Hospitalization Category Date Time Status CT abdomen pelvis w con* [id number] Stat Cat Scan 06/01/24 14:34 Completed XR chest 1V tanvir ble [id number] Routine Exams 05/26/24 07:00 Completed XR chest 1V tanvir ble [id number] Routine Exams 06/03/24 10:37 Completed XR chest 1V tanvir ble [id number] Routine Exams 06/11/24 12:33 Completed Radiology Impressions Abdomen/Pelvis CT 06/01/24 14:34 IMPRESSION: Appendicolith at the base of the appendix. Questionable subtle inflammatory changes around the appendix and peritoneum which brings consideration for acute appendicitis in the appropriate clinical context. Otherwise, no acute findings. Chest X-Ray 06/11/24 12:33 IMPRESSION: Focal areas of atelectasis are seen in both lower lung muro. Otherwise unremarkable chest x-ray. Laboratory Results WBC 9.99 10^3/uL (3.2 9-11.43) 06/12/24 17:34 RBC 4.23 10^6/uL (3.8 5-5.65) 06/12/24 17:34 Hgb 10.80 g/dL (11.27 -16.99) L 06/12/24 17:34 Hct 36.9 % (36-47) 06/12/24 17:34 MCV 87.2 fl (85-98) 06/12/24 17:34 MCH 25.5 pg (27-33) L 06/12/24 17:34 MCHC 29.3 g/dL (30-55) L 06/12/24 17:34 RDW 15.0 % (12.1-15.1 ) 06/12/24 17:34 Plt Count 377 10^3/cmm (157 -399) 06/12/24 17:34 MPV 10.1 fL (7.4-10.4 ) 06/12/24 17:34 Neut % (Auto) 66.0 % 06/12/24 17:34 Lymph % (Auto) 25.1 % 06/12/24 17:34 [place] % (Auto) 5.9 % 06/12/24 17:34 Eos % (Auto) 1.9 % 06/12/24 17:34 Baso % (Auto) 0.4 % 06/12/24 17:34 Neut # (Auto) 6.59 10^3/uL (1.8 -7.7) 06/12/24 17:34 Lymph # (Auto) 2.5 10^3/uL (0.8- 4.8) 06/12/24 17:34 [place] # (Auto) 0.6 10^3/uL (0.2- 0.9) 06/12/24 17:34 Eos # (Auto) 0.2 10^3/uL (0.0- 0.8) 06/12/24 17:34 Baso # (Auto) 0.0 10^3/uL (0.0- 0.1) 06/12/24 17:34 Nucleated RBC % (a uto) 0 % 06/12/24 17:34 Nucleated RBCs # 0.0 /100WBC 06/12/24 17:34 Sodium 143 mmol/L (136-1 45) 06/12/24 17:34 Potassium 4.3 mmol/L (3.5-5 .1) 06/12/24 17:34 Chloride 98 mmol/L (98-107 ) 06/12/24 17:34 Carbon Dioxide 31 mmol/L (22-29) H 06/12/24 17:34 Anion Gap 18.3 (5-19) 06/12/24 17:34 BUN 10 mg/dL (6-20) 06/12/24 17:34 Creatinine 0.4 mg/dL (0.5-0. 9) L 06/12/24 17:34 GFR Calculation 177.7 mL/min (90- 130) H 06/12/24 17:34 Glucose 101 mg/dL (65-115 ) 06/12/24 17:34 Calculated Osmolal ity 295 mOsm/kg (285- 295) 06/12/24 17:34 Lactic Acid 1.0 mmol/L (0.5-2 .2) 06/06/24 10:20 Calcium 9.5 mg/dL (8.5-10 .5) 06/12/24 17:34 Phosphorus 3.8 mg/dL (2.5-4. 5) 05/26/24 09:02 Magnesium 1.6 mg/dL (1.7-2. 3) L 05/26/24 09:02 Total Bilirubin 0.2 mg/dL (0.15-1 .2) 06/12/24 17:34 AST 14 U/L (0-32) 06/12/24 17:34 ALT 18 U/L (0-33) 06/12/24 17:34 Alkaline Phosphata se 127 U/L (35-105) H 06/12/24 17:34 C-Reactive Protein 18.0 mg/L (0.0-4. 9) H 06/01/24 15:52 Total Protein 7.5 g/dL (6.6-8.7 ) 06/12/24 17:34 Albumin 3.8 g/dL (3.5-5.2 ) 06/12/24 17:34 Globulin 3.7 g/dL (1.3-4.6 ) 06/12/24 17:34 Procalcitonin 0.06 ng/mL (0-0.5 ) 06/03/24 11:28 HCG, Qual Negative (Negati ve) 05/22/24 17:37 Urine Color Yellow (Yellow) 05/22/24 17:37 Urine Appearance Clear (CLEAR) 05/22/24 17:37 Urine pH 6.5 (5-7) 05/22/24 17:37 Ur Specific Gravit y 1.020 (1.005-1.0 30) 05/22/24 17:37 Urine Protein Negative (Negati ve) 05/22/24 17:37 Urine Glucose (UA) Negative (Normal ) 05/22/24 17:37 Urine Ketones Negative (Negati ve) 05/22/24 17:37 Urine Blood Negative (Negati ve) 05/22/24 17:37 Urine Nitrate Negative (Negati ve) 05/22/24 17:37 Urine Bilirubin Negative (Negati ve) 05/22/24 17:37 Urine Urobilinogen 1.0 mg/dL (Negati ve) 05/22/24 17:37 Ur Leukocyte May ase 3+ (Negative) A 05/22/24 17:37 Urine RBC 0-2 /hpf (0-2) 05/22/24 17:37 Urine WBC 51-100 /hpf (0-5) H 05/22/24 17:37 Ur Squamous Epith Cells 6-10 /hpf (0-5) 05/22/24 17:37 Amorphous Sediment Not Reportable 05/22/24 17:37 Urine Bacteria 2+ /hpf (NONE) H 05/22/24 17:37 Hyaline Casts 2.46 /lpf 05/22/24 17:37 Salicylates < 0.3 mg/dL (3-10 ) L 05/22/24 17:28 Urine Opiates Scre en Negative ng/mL (N egative) 05/22/24 17:37 Acetaminophen < 5.0 ug/mL (10-3 0) L 05/22/24 17:28 Ur Barbiturates Sc reen Negative ng/mL (N egative) 05/22/24 17:37 Ur Phencyclidine S crn Negative ng/mL (N egative) 05/22/24 17:37 Ur Amphetamines Sc reen Negative ng/mL (N egative) 05/22/24 17:37 U Benzodiazepines Scrn Positive ng/mL (N egative) H 05/22/24 17:37 Urine Cocaine Scre en Negative ng/mL (N egative) 05/22/24 17:37 U Marijuana (THC) Screen Negative ng/mL (N egative) 05/22/24 17:37 Ethyl Alcohol < 10 mg/dL (0-10) 05/22/24 17:28 Vitals: Last Vital Signs Temp 99.3 F 06/21/24 14:00 Pulse 114 H 06/21/24 14:00 Resp 16 06/21/24 14:00 BP 123/70 06/21/24 14:00 Pulse Ox 92 06/21/24 14:00 O2 Del Method Room Air 06/21/24 14:00 O2 Flow Rate 94 06/19/24 14:00 Discharge Plan Discharge Patient Disposition: Home Condition: Stable Prescriptions: New cyclobenzaprine 10 mg Tablet 5 mg PO TID 30 Days Qty: 45 1RF fluoxetine 20 mg Capsule 60 mg PO DAILY 30 Days Qty: 90 1RF trazodone 50 mg Tablet 50 mg PO BEDTIME PRN (Reason: Sleep) 30 Days Qty: 30 1RF Continued acetaminophen [Tylenol Arthritis Pain] 650 mg tablet extended release 650 mg PO Q8H PRN (Reason: pain) Rx Instructions: All meds given via peg tube ibuprofen 200 mg Tablet 1,000 mg PO Q6H PRN (Reason: Pain) levothyroxine 137 mcg tablet 137 mcg PO DAILY 90 Days Qty: 90 0RF Rx Instructions: All meds given via peg tube hydroxyzine pamoate 50 mg capsule 50 mg PO BID PRN (Reason: Anxiety) 30 Days Qty: 60 1RF Rx Instructions: All meds given via peg tube diclofenac sodium 75 mg tablet,delayed release (DR/EC) 75 mg PO BID PRN (Reason: pain) 30 Days Qty: 60 1RF Rx Instructions: All meds given via peg tube Changed gabapentin 400 mg capsule 400 mg PO TID 30 Days Qty: 90 1RF Rx Instructions: All meds given via peg tube Discontinued diphenhydramine HCl [Benadryl] 25 mg Capsule 25 mg PO TID PRN (Reason: ALLERGIES) Rx Instructions: All meds given via peg tube cyclobenzaprine 5 mg tablet 10 mg PO BEDTIME PRN (Reason: muscle spasm) Rx Instructions: All meds given via peg tube fluoxetine 40 mg capsule 40 mg feeding tube DAILY Rx Instructions: All meds given via peg tube Discharge Orders: Discharge Order (Routine); Ordered 06/21/24 Ordered By: Shahid Castellano Referrals: Ir[facility] Conde [Other] (Call Paige Castellano for any insurance or discharge questions or needs.) [facility] [Other] [facility] [Other] - 06/21/24 3:00 pm Discharge Diet: Regular Discharge Activity: Resume usual activity Patient Instructions: Opioid Safety Discharge Attestations NPU Time Spent in Discharge Care*: greater than 30 min Specific Discharge Activities: Specific discharge activities: educating patient, discussing with pcp/other providers, discussing with bilingual case manager/social workers/dc planners, documenting/other paperwork and evaluating patient/reviewing data Coding Level of Care Code Acute Code for Chg Fwd Diagnoses PEG tube malfunction K94.23
[2024-06-21 14:56] VITALS: BP 123/70; PULSE 114; RESP 16; TEMP 37.4; O2SAT 97
== END 2024-06-21 15:30 | disposition home or self-care (01) | DRG 885 ==
LOC: ER 17:49 → NP 18:06
PROVIDERS: Family Medicine; Internal Medicine; Admitting Provider Psychiatry & Neurology Psychiatry; Emergency Provider Emergency Medicine; Visit Provider Psychiatry & Neurology Psychiatry
DX: F33.1 Major depressive disorder, recurrent, moderate (principal); K94.23 Gastrostomy malfunction; F17.290 Nicotine dependence, other tobacco product, uncomplicated; F43.12 Post-traumatic stress disorder, chronic; F41.0 Panic disorder [episodic paroxysmal anxiety]; E66.9 Obesity, unspecified; Z68.34 Body mass index [BMI] 34.0-34.9, adult; J38.00 Paralysis of vocal cords and larynx, unspecified; E78.2 Mixed hyperlipidemia; E03.9 Hypothyroidism, unspecified; R22.2 Localized swelling, mass and lump, trunk; Z90.710 Acquired absence of both cervix and uterus; Z90.49 Acquired absence of other specified parts of digestive tract; Z83.3 Family history of diabetes mellitus; Z82.49 Family history of ischemic heart disease and other diseases of the circulatory system
CPT/HCPCS: 36415; 71045; 74177; 80053; 80306; 80307; 81001; 81025; 83605; 83735; 84100; 84145; 85025; 86140; 87086; 92507; 92524; 92526; 92610; 93005; 97110; 97116; 97150; 97163; 97165; 97167; 99285; Q0162